=== PATIENT | male | born 1990 | race Caucasian/White ===

== ENCOUNTER 2019-03-11 08:20 | Emergency (ER) | payer SELFPAY ==
[2019-03-11 08:47] VITALS: BP 125/73; PULSE 67; RESP 18; TEMP 36.6; O2SAT 99; BMI 23.6
[2019-03-11 09:06] VITALS: BP 119/78; PULSE 66; RESP 16; TEMP 36.7; O2SAT 99
--- NOTE | 2019-03-11 09:08 | W.ED.GENADLT ---
HPI - General Adult General: Chief complaint: General Medical Stated complaint: Sore throat Time Seen by Provider: 03/11/19 09:02 Source: patient Mode of arrival: ambulatory Limitations: no limitations History of Present Illness: HPI narrative: Patient comes in today for complaints of sore throat. Patient reports sore throat started last night with some nausea. Patient appears mildly unwell. Patient appears in no pain. Review of Systems General: Reports: 10 or more systems reviewed and unremarkable except in HPI and below ENMT: Reports: throat pain PFSH ED PFSH: Statuses (acute, chronic, etc) shown below reflect problem list status as previously entered and may not be historically accurate Social History Smoking and tobacco status: current every day smoker Physical Exam Const: COMMON NORMALS: no apparent distress and oriented x3 GENERAL APPEARANCE: cooperative HENMT: COMMON NORMALS: normocephalic, external ears normal, EAC's normal, TM's normal bilaterally and external nose normal HEAD & SCALP: normal to inspection and normocephalic FACE & SINUS: normal facial exam NOSE: external nose normal GENERAL EAR: hearing not grossly impaired EXTERNAL EAR: Yes external ears normal EXTERNAL AUDITORY CANAL: EAC's normal TYMPANIC MEMBRANE: TM's normal bilaterally MOUTH: oral and palatal mucosa normal THROAT: posterior oropharynx abnormal cobblestoning and erythema Eye: COMMON NORMALS: PERRL and EOMs intact bilaterally PUPIL: Yes PERRL Neck/C-Spine: COMMON NORMALS: full ROM and no lymphadenopathy Lymph: LYMPHATIC: no lymphedema noted Chest: COMMONS NORMALS: inspection of chest normal and palpation of chest normal Resp: COMMON NORMALS: normal respiratory effort and clear to auscultation bilaterally AUSCULTATION: clear to auscultation bilaterally Cardio: COMMON NORMALS: regular rate and regular rhythm RATE: regular rate RHYTHM: regular rhythm GI: COMMON NORMALS: normal to inspection, nondistended, normoactive bowel sounds and non-tender : COMMON NORMALS: Yes no CVA tenderness BLADDER/KIDNEY EXAM: Yes no CVA tenderness Back/Pelvis: COMMON NORMALS: no CVA tenderness and thoracic and lumbar spine normal to inspection Extremity: COMMON NORMALS: normal to inspection GENERAL: No edema Neuro: COMMON NORMALS: oriented x3, moves all extremities and no focal motor deficits Psych: COMMON NORMALS: mental status grossly normal and cooperative Skin: COMMON NORMALS: no rashes or lesions noted GENERAL SKIN EXAM: no rashes or lesions noted Course Vital Signs: Vital signs: Vital Signs Temperature 98.1 F 03/11/19 10:16 Pulse Rate 60 03/11/19 10:16 Respiratory Rate 16 03/11/19 10:16 Blood Pressure 117/74 03/11/19 10:16 Pulse Oximetry 97 03/11/19 10:16 MDM - General Adult Differential Diagnosis: Differential Diagnosis: Patient comes in today for complaints of sore throat and nausea since last night. Patient appears mildly unwell. Exam notes pharyngeal erythema. Abdomen soft nontender. Skin is warm and dry color is pink. Differential diagnosis includes viral syndrome, influenza, strep pharyngitis. Strep and flu test were negative. Reviewed exam with patient recommending treatment with dexamethasone for pain and discomfort. We will continue with Tylenol and ibuprofen for further treatment. Patient reports understanding agreed to plan. Lab Data: Labs: Lab Results 03/11/19 03/11/19 Range/Units 08:56 08:56 Influenza Type A A g Negative (Negative) POC Influenza B Ag Negative (Negative) Group A Strep Rapi d Negative (Negative) Discharge Plan Discharge Patient Disposition: Home, Self-Care Clinical Impression: Pharyngitis Qualifiers: Pharyngitis/tonsillitis etiology: other specified organisms Qualified Code(s): J02.8 - Acute pharyngitis due to other specified organisms Condition: Stable Prescriptions: No Action Abilify 15 mg Tablet 15 mg PO DAILY RF: 0 Remeron 15 mg Tablet 15 mg PO DAILY RF: 0 Discharge Orders: Discharge Order (Routine); Ordered 03/11/19 Ordered By: Roland Davis Referrals: [facility] [Other] Discharge Diet: Usual diet Discharge Activity: Limit activity as instructed Patient Instructions: Pharyngitis (ED) Activity Restrictions/Additional Instructions: Drink plenty of fluids Acetaminophen and Ibuprofen for pain and fever Follow-up with primary care in one week for persistent symptoms Return to ER for increased difficulty breathing or new concerns Stand Alone Forms: Work/School Release Discharge Date/Time: 03/11/19 10:17 Coding Level of Care Code 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
[2019-03-11 09:27] LABS: Rapid Strep A Test Negative (Negative)
[2019-03-11 09:28] LABS: Influenza A by IFA Negative (Negative); Influenza B by IFA Negative (Negative)
[2019-03-11] MEDS: dexamethasone 10 mg/mL INJ IM (10:00)
[2019-03-11 10:16] VITALS: BP 117/74; PULSE 60; RESP 16; TEMP 36.7; O2SAT 97
== END 2019-03-11 10:17 | disposition home or self-care (01) ==
PROVIDERS: Emergency Provider Nurse Practitioner Family
DX: J02.8 Acute pharyngitis due to other specified organisms (principal); F17.210 Nicotine dependence, cigarettes, uncomplicated
CPT/HCPCS: 87081; 87804; 87880; 96372; 99282; J1100

== ENCOUNTER 2019-04-08 16:24 | Emergency (ER) | payer SELFPAY ==
[2019-04-08 16:39] VITALS: BP 118/90; PULSE 60; RESP 18; TEMP 36.8; O2SAT 98; BMI 23.6
[2019-04-08 17:59] LABS: Influenza A by IFA Negative (Negative); Influenza B by IFA Negative (Negative)
[2019-04-08 18:57] VITALS: BP 131/80; PULSE 65; RESP 16; TEMP 36.7; O2SAT 98
--- NOTE | 2019-04-08 19:03 | W.ED.FEVER ---
HPI - Fever General: Chief Complaint: Fever Stated Complaint: Fever Time Seen by Provider: 04/08/19 19:02 History of Present Illness: HPI Narrative: Patient is a 28-year-old male who comes to the ED with fever. Patient states fever started last night and he also had a little bit of a cough. He describes the cough is dry and nonproductive. Denies any recent sick contacts. Patient took ibuprofen at 2 PM today and states that he is feeling better Now. Denies any chest pain, shortness of breath, abdominal pain, nausea, vomiting, dysuria, hematuria, diarrhea, constipation, blood in stool. Review of Systems General: Reports: 10 or more systems reviewed and unremarkable except in HPI and below PFSH ED PFSH: Statuses (acute, chronic, etc) shown below reflect problem list status as previously entered and may not be historically accurate Medical History Encounter for follow-up care involving plastic surgery of upper extremity (Unknown) Left arm Surgical History History of carpal tunnel surgery Left hand. Social History Smoking and tobacco status: current every day smoker Physical Exam Narrative: EXAM NARRATIVE: Patient is a 28-year-old male sitting comfortably in the chair when I entered the exam room. He was showing no signs of acute pain or distress. Also showing no signs of any respiratory distress. Const: COMMON NORMALS: oriented x3 HENMT: COMMON NORMALS: normocephalic and TM's normal bilaterally HEAD & SCALP: normocephalic TYMPANIC MEMBRANE: TM's normal bilaterally MOUTH: oral and palatal mucosa normal THROAT: posterior oropharynx normal and uvula midline Neck/C-Spine: COMMON NORMALS: supple GENERAL: Yes normal visual inspection Resp: COMMON NORMALS: normal respiratory effort, no retractions, no use of accessory muscles and clear to auscultation bilaterally AUSCULTATION: clear to auscultation bilaterally Cardio: COMMON NORMALS: regular rate, regular rhythm, S1 normal heart sound, S2 normal heart sound, no gallops, no clicks, no murmurs and peripheral pulses 2+ throughout RATE: regular rate RHYTHM: regular rhythm HEART SOUNDS: S1 normal and S2 normal PERIPHERAL PULSES: pulses 2+ throughout GI: COMMON NORMALS: normal to inspection, nondistended, normoactive bowel sounds, soft to palpation, non-tender and no masses PALPATION: Yes soft : COMMON NORMALS: Yes no CVA tenderness BLADDER/KIDNEY EXAM: Yes no CVA tenderness Back/Pelvis: COMMON NORMALS: no CVA tenderness Extremity: COMMON NORMALS: normal to inspection Neuro: COMMON NORMALS: oriented x3 and moves all extremities Skin: COMMON NORMALS: no rashes or lesions noted GENERAL SKIN EXAM: no rashes or lesions noted Course Vital Signs: Vital signs: Vital Signs Temperature 98.1 F 04/08/19 19:24 Pulse Rate 65 04/08/19 19:24 Respiratory Rate 16 04/08/19 19:24 Blood Pressure 131/80 04/08/19 19:24 Pulse Oximetry 98 04/08/19 19:24 MDM - Fever Lab Data: Attestation: I reviewed the patient's lab results. Labs: Lab Results 04/08/19 Range/Units 16:44 Influenza Type A A g Negative (Negative) POC Influenza B Ag Negative (Negative) Discharge Plan Discharge Patient Disposition: Home, Self-Care Clinical Impression: Upper respiratory infection with cough and congestion Condition: Stable Prescriptions: No Action Abilify 15 mg Tablet 15 mg PO DAILY RF: 0 Remeron 15 mg Tablet 15 mg PO DAILY RF: 0 Discharge Orders: Discharge Order (Routine); Ordered 04/08/19 Ordered By: Rolan Souza Referrals: [facility] [Other] Discharge Diet: Regular Discharge Activity: Resume usual activity Patient Instructions: Upper Respiratory Infection - Adult Activity Restrictions/Additional Instructions: Follow-up with PCP in 7 days for reevaluation. Drink plenty of fluids and take Tylenol or ibuprofen as needed for fevers. Take [id number] nasal decongestants to help with nasal congestion. Return to the ED if symptoms continue to worsen after 3-5 days or have some shortness of breath or productive cough. 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
[2019-04-08 19:24] VITALS: BP 131/80; PULSE 65; RESP 16; TEMP 36.7; O2SAT 98
== END 2019-04-08 19:30 | disposition home or self-care (01) ==
PROVIDERS: Emergency Medicine; Emergency Provider Physician Assistant
DX: J06.9 Acute upper respiratory infection, unspecified (principal); F17.210 Nicotine dependence, cigarettes, uncomplicated
CPT/HCPCS: 87804; 99281; 99282

== ENCOUNTER 2021-11-20 17:48 | Emergency (ER) | payer BC, MEDICAID, SELFPAY ==
--- NOTE | 2021-11-20 17:51 | USR_ITS ---
PROCEDURE INFORMATION: Exam: US Scrotum Exam date and time: 11/20/2021 6:09 PM Age: 31 years old Clinical indication: Scrotum pain; Patient HX: Sudden on set of pain; Additional info: Right testicle pain TECHNIQUE: Imaging protocol: Real-time ultrasound of the scrotum and contents with color Doppler and image documentation. COMPARISON: US Renal Kidney Structu* [id number] 04/28/2018 10:50 AM FINDINGS: Right testicle: Normal. No mass. No torsion. Normal vascular flow. Left testicle: Normal. No mass. No torsion. Normal vascular flow. Epididymides: Normal. Scrotum: Normal. US/US scrotum [id number] IMPRESSION: No acute findings.
[2021-11-20 17:53] VITALS: BP 134/81; PULSE 96; RESP 16; TEMP 36.5; O2SAT 98; BMI 23.6
[2021-11-20 18:43] VITALS: BP 158/95; PULSE 90; RESP 18; O2SAT 95
[2021-11-20] MEDS: HYDROcodone-acetaminophen 5-325 mg Tablet 1 TAB PO (18:45)
--- NOTE | 2021-11-20 18:47 | W.ED.MALEGU ---
HPI - Male Genitourinary General: Chief complaint: Urogenital-Male Stated complaint: Right testicle pain Time Seen by Provider: 11/20/21 18:30 Source: patient Mode of arrival: ambulatory Limitations: no limitations History of Present Illness: 31-year-old male states has been having right-sided testicle pain throughout the day states it is gradually worsened pain is now a 7 out of 10 denies any dysuria denies any flank pain pain is worse with movement improved with rest. Associated symptoms: Deny dysuria, nausea or vomiting Review of Systems Const: Denies: fever(s), chills, body aches or change in appetite Eyes: Denies: blurry vision or eye discomfort ENMT: Denies: throat pain or dental pain Card: Denies: chest pain Resp: Denies: dyspnea GI: Denies: abdominal pain, nausea, vomiting or diarrhea : Reports: testicular pain; Denies: dysuria Musc: Denies: neck pain or back pain Skin/Breast: Denies: rash Neuro: Denies: headache(s) Psych: Denies: depression Mandeep/Lymph: Denies: easy bruising All/Imm: Denies: urticaria PFSH ED PFSH: Medical History (Updated 11/20/21 @ 19:29 by Kavin Beckman MD) Encounter for follow-up care involving plastic surgery of upper extremity (Unknown) Left arm Surgical History History of carpal tunnel surgery Left hand. Social History Smoking and tobacco status: current every day smoker Physical Exam Const: COMMON NORMALS: no acute distress, patient oriented x3 and healthy appearing HENMT: COMMON NORMALS: normocephalic and atraumatic HEAD & SCALP: normocephalic and atraumatic Eye: COMMON NORMALS: conjunctivae normal CONJUNCTIVA: Yes conjunctivae normal Neck/C-Spine: COMMON NORMALS: full ROM and supple Chest: COMMONS NORMALS: normal inspection of the chest Resp: COMMON NORMALS: normal respiratory effort Cardio: COMMON NORMALS: regular rate, regular rhythm and No murmurs present (Cardio) RATE: regular rate RHYTHM: regular rhythm GI: COMMON NORMALS: Normal to inspection, nondistended, normoactive bowel sounds present, Soft to palpation, non-tender and no masses PALPATION: Yes Soft to palpation : COMMON NORMALS: Yes no CVA tenderness BLADDER/KIDNEY EXAM: Yes no CVA tenderness OTHER: Tenderness noted to right testicle no signs of torsion Back/Pelvis: COMMON NORMALS: no CVA tenderness Extremity: COMMON NORMALS: normal to inspection and full ROM Neuro: COMMON NORMALS: patient oriented x3, moves all extremities and no focal motor deficits Psych: COMMON NORMALS: mental status grossly normal, Normal thought process present and cooperative THOUGHT PROCESS: Normal thought process present Skin: COMMON NORMALS: no rashes or lesions noted and no wounds GENERAL SKIN EXAM: no rashes or lesions noted Course Vital Signs: Vital signs: Vital Signs Temperature 97.7 F 11/20/21 17:53 Pulse Rate 90 11/20/21 18:43 Respiratory Rate 18 11/20/21 18:43 Blood Pressure 158/95 11/20/21 18:43 Pulse Oximetry 95 11/20/21 18:43 Oxygen Delivery Me thod 11/20/21 18:43 MDM - Male Medical Decision Making Patient presents with right testicle pain he had some mild tenderness on exam no abnormalities noted ultrasound and CT scan are normal urinalysis is normal he stable for discharge he is to follow-up with PCP and return if worsening he understands agrees to plan. Lab Data Radiology Impressions Scrotum Ultrasound 11/20/21 17:51 IMPRESSION: No acute findings. Abdomen/Pelvis CT 11/20/21 18:54 IMPRESSION: A few punctate nonobstructing stones noted in both kidneys, right greater than left. No obstructing nephrolithiasis. Laboratory Results Urine Color Yellow (Yellow) 11/20/21 18:02 Urine Appearance Clear (CLEAR) 11/20/21 18:02 Urine pH 6 (5-7) 11/20/21 18:02 Ur Specific [place] 1.025 (1.005-1.030) 11/20/21 18:02 Urine Protein Neg (Negative) 11/20/21 18:02 Urine Glucose (UA) Norm (Normal) 11/20/21 18:02 Urine Ketones Negative (Negative) 11/20/21 18:02 Urine Blood Neg (Negative) 11/20/21 18:02 Urine Nitrate Negative (Negative) 11/20/21 18:02 Urine Bilirubin Neg (Negative) 11/20/21 18:02 Urine Urobilinogen Neg mg/dL (Negative) 11/20/21 18:02 Ur Leukocyte Esterase Negative (Negative) 11/20/21 18:02 Discharge Plan Discharge Patient Disposition: Home Clinical Impression: Right testicular pain Condition: Stable Prescriptions: New hydrocodone-acetaminophen 5-325 mg tablet 1 tab PO Q6H PRN (Reason: pain) Qty: 14 0RF No Action Abilify 15 mg Tablet 15 mg PO DAILY Remeron 15 mg Tablet 15 mg PO DAILY Discharge Orders: Discharge ED (Routine); Ordered 11/20/21 Ordered By: Kavin Beckman Referrals: Kevin French MD [Primary Care Provider] - David Herrera MD [Physician] - 1-3 days Discharge Diet: Advance as tolerated Discharge Activity: Resume usual activity Patient Instructions: Testicle Pain (ED), Opioid Safety Coding Level of Care Code 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
[2021-11-20 18:51] LABS: Add Urine Microscopic? NO; Charge for UA Resulting for Rev
--- NOTE | 2021-11-20 18:54 | CTR_ITS ---
PROCEDURE INFORMATION: Exam: CT Abdomen And Pelvis Without Contrast Exam date and time: 11/20/2021 6:58 PM Age: 31 years old Clinical indication: Abdominal pain; Flank; Patient HX: Right testicle pain; Additional info: Right flank pain TECHNIQUE: Imaging protocol: Computed tomography of the abdomen and pelvis without contrast. Radiation optimization: All CT scans at this facility use at least one of these dose optimization techniques: automated exposure control; mA and/or kV adjustment per patient size (includes targeted exams where dose is matched to clinical indication); or iterative reconstruction. COMPARISON: US scrotum [id number] 11/20/2021 6:09 PM RADIATION DOSE METRICS: Total DLP (mGy-cm): 513.83 FINDINGS: Liver: Normal. No mass. Gallbladder and bile ducts: Contracted gallbladder. No calcified stones. No ductal dilation. Pancreas: Normal. No ductal dilation. Spleen: Normal. No splenomegaly. Adrenal glands: Normal. No mass. Kidneys and ureters: A few punctate nonobstructing stones are noted within both kidneys, right greater than left. No obstructing nephrolithiasis. No hydronephrosis. Stomach and bowel: Unremarkable. No obstruction. No mucosal thickening. Appendix: No evidence of appendicitis. Intraperitoneal space: Unremarkable. No free air. No significant fluid collection. Vasculature: Unremarkable. No abdominal aortic aneurysm. Lymph nodes: Unremarkable. No enlarged lymph nodes. Urinary bladder: Unremarkable as visualized. Reproductive: Unremarkable as visualized. Bones/joints: No acute fracture. Soft tissues: Unremarkable. CT/CT kidney stone [id number] IMPRESSION: A few punctate nonobstructing stones noted in both kidneys, right greater than left. No obstructing nephrolithiasis.
[2021-11-20 18:56] LABS: Bilirubin Urine Neg (Negative); Blood Urine Neg (Negative); Glucose Urine UA Norm (Normal); Ketones Urine Negative (Negative); Leukocyte Esterase Urine Negative (Negative); Nitrate Urine Negative (Negative); Protein Urine Neg (Negative); Specific Gravity, Urine 1.025 (1.005-1.030); Urine Appearance Clear (CLEAR); Urine Color Yellow (Yellow); Urobilinogen Urine Neg (Negative); pH Urine 6 (5-7)
--- NOTE | 2021-11-20 19:00 | PC.NURSE ---
report received from off going nurse, assumed care of patient at this time.
[2021-11-20 19:43] VITALS: PULSE 83; RESP 17; O2SAT 98
== END 2021-11-20 19:44 | disposition home or self-care (01) ==
PROVIDERS: Physician Assistant; Emergency Provider Emergency Medicine; PCP General Practice
DX: N50.811 Right testicular pain (principal); F17.200 Nicotine dependence, unspecified, uncomplicated
CPT/HCPCS: 74176; 76870; 81003; 99285

== ENCOUNTER 2023-06-25 11:08 | Emergency (ER) | payer BC, MEDICAID, SELFPAY ==
[2023-06-25 11:11] VITALS: BP 127/83; PULSE 80; RESP 18; O2SAT 98
--- NOTE | 2023-06-25 11:17 | CTR_ITS ---
PROCEDURE INFORMATION: Exam: CT Abdomen And Pelvis With Contrast Exam date and time: 06/25/2023 12:03 PM Age: 32 years old Clinical indication: Abdominal pain; Generalized; Additional info: Abd pain TECHNIQUE: Imaging protocol: Computed tomography of the abdomen and pelvis with contrast. Axial, coronal and sagittal reformatted images were created and reviewed. Radiation optimization: All CT scans at this facility use at least one of these dose optimization techniques: automated exposure control; mA and/or kV adjustment per patient size (includes targeted exams where dose is matched to clinical indication); or iterative reconstruction. Contrast material: OMNI 350; Contrast volume: 100 ml; Contrast route: INTRAVENOUS (IV); COMPARISON: CT kidney stone [id number] 11/20/2021 6:58 PM RADIATION DOSE METRICS: Total DLP (mGy-cm): 394.43 FINDINGS: Lungs: Minimal dependent atelectatic change at the lung bases. Liver: Unremarkable. Gallbladder and bile ducts: No radiodense gallstones. No biliary ductal dilatation. Pancreas: Unremarkable. Spleen: Unremarkable. Adrenal glands: Normal. No mass. Kidneys and ureters: Nonobstructing bilateral renal calculi. No hydronephrosis. Stomach and bowel: No bowel wall thickening. No obstruction. No pneumatosis. Appendix: Normal. Intraperitoneal space: No free fluid. No organized fluid collection. No free air. Vasculature: Unremarkable. No aneurysm. Lymph nodes: No pathologically enlarged lymph nodes. Urinary bladder: Unremarkable as visualized. Reproductive: Unremarkable. Bones/joints: No acute osseous abnormality. Mild degenerative changes. Soft tissues: Unremarkable. CT/CT abdomen pelvis w con* [id number]: 1[address] No CT evidence of acute intra-abdominal or pelvic pathology. 2. Additional findings, as above.
[2023-06-25 11:19] VITALS: TEMP 36.6
--- NOTE | 2023-06-25 11:30 | ED_ITS ---
HPI - Abdominal Pain 2 General: Chief Complaint: Abdominal Pain Stated Complaint: abd pain Time Seen by Provider: 06/25/23 11:11 Source: patient Mode of arrival: ambulatory Limitations: no limitations History of Present Illness: 32-year-old male states been having lowe r abdominal pain for the last 3 weeks. States it is a cramping pain feels like there is a rock in his stomach. He rates the pain a 7 out of 10 he had no vomiting or diarrhea denies any fevers denies any dysuria. Associated Symptoms: Denies chills, diarrhea, dysuria, fever(s), nausea and vomiting Review of Systems 2 Const: Denies: fever(s), chills, body aches or change in appetite ENMT: Denies: throat pain or dental pain Card: Denies: chest pain Resp: Denies: dyspnea GI: Reports: abdominal pain; Denies: nausea, vomiting or diarrhea : Denies: dysuria Musc: Denies: neck pain or back pain Skin/Breast: Denies: rash Neuro: Denies: headache(s) PFSH ED 2 PFSH: Medical History (Updated 06/25/23 @ 12:55 by Kavin Beckman MD) Encounter for follow-up care involving plastic surgery of upper extremity (Unknown) Left arm Surgical History History of carpal tunnel surgery Left hand. Social History Smoking and tobacco/nicotine status: current every day tobacco/nicotine user Physical Exam 2 Const: COMMON NORMALS: no acute distress, patient oriented x3 and healthy appearing HENMT: COMMON NORMALS: normocephalic and atraumatic HEAD & SCALP: n ormocephalic and atraumatic Neck/C-Spine: COMMON NORMALS: full ROM and supple Chest: COMMONS NORMALS: normal inspection of the chest and normal palpation of entire chest wall Resp: COMMON NORMALS: normal respiratory effort, No retractions, No use of accessory muscles and clear to auscultation bilaterally AUSCULTATION: clear to auscultation bilaterally Cardio: COMMON NORMALS: regular rate, regular rhythm and No murmurs present (Cardio) RATE: regular rate RHYTHM: regular rhythm GI: COMMON NORMALS: Normal to inspection, nondistended, normoactive bowel sounds present, Soft to palpation and no masses PALPATION: Yes Soft to palpation OTHER: Slight lower abdominal tenderness Extremity: COMMON NORMALS: normal to inspection and full ROM Neuro: COMMON NORMALS: patient oriented x3, moves all extremities and no focal motor deficits Psych: COMMON NORMALS: mental status grossly normal, Normal thought process present and cooperative THOUGHT PROCESS: Normal thought process present Skin: COMMON NORMALS: no rashes or lesions noted and no wounds GENERAL SKIN EXAM: no rashes or lesions noted Course 2 Vital Signs: Vital signs: Vital Signs Temperature 97.8 F 06/25/23 11:19 Pulse Rate 80 06/25/23 11:11 Respiratory Rate 18 06/25/23 11:11 Blood Pressure 127/83 06/25/23 11:11 Pulse Oximetry 98 06/25/23 11:11 Oxygen Delivery Me thod Room Air 06/25/23 11:11 MDM - Abdominal Pain Medical Decision Making Patient presents here with abdominal pain exam here is benign CT scan blood works normal he is stable for discharge we will place him on Bentyl he is return if worsening. Medical Records I reviewed the patient's medical records. Lab Data I reviewed the patient's lab results. 06/25/23 11:31 06/25/23 11:31 Labs/Radiology: Radiology Impressions Abdomen/Pelvis CT 06/25/23 11:[address]: [address] evidence of acute intra-abdominal or pelvic pathology. 2. Additional findings, as above. Laboratory Results WBC 6.90 10^3/uL (3.29-11.43) 06/25/23 11:31 RBC 5.10 10^6/uL (3.85-5.65) 06/25/23 11:31 Hgb 16.70 g/dL (11.27-16.99) 06/25/23 11:31 Hct 48.7 % (37-53) 06/25/23 11:31 MCV 95.5 fl (82-101) 06/25/23 11:31 MCH 32.7 pg (27-33) 06/25/23 11:31 MCHC 34.3 g/dL (30-55) 06/25/23 11:31 RDW 13.2 % (12.1-15.1) 06/25/23 11:31 Plt Count 233 10^3/cmm (157-399) 06/25/23 11:31 MPV 9.9 fL (7.4-10.4) 06/25/23 11:31 Neut % (Auto) 39.5 % 06/25/23 11:31 Lymph % (Auto) 47.8 % 06/25/23 11:31 [place] % (Auto) 5.9 % 06/25/23 11:31 Eos % (Auto) 5.8 % 06/25/23 11:31 Baso % (Auto) 0.9 % 06/25/23 11:31 Neut # (Auto) 2.72 10^3/uL (1.8-7.7) 06/25/23 11:31 Lymph # (Auto) 3.3 10^3/uL (0.8-4.8) 06/25/23 11:31 [place] # (Auto) 0.4 10^3/uL (0.2-0.9) 06/25/23 11:31 Eos # (Auto) 0.4 10^3/uL (0.0-0.8) 06/25/23 11:31 Baso # (Auto) 0.1 10^3/uL (0.0-0.1) 06/25/23 11:31 Nucleated RBC % (auto) 0 % 06/25/23 11: Nucleated RBCs # 0.0 /100WBC 06/25/23 11:31 Sodium 138 mmol/L (136-145) 06/25/23 11:31 Potassium 3.7 mmol/L (3.5-5.1) 06/25/23 11:31 Chloride 102 mmol/L (98-107) 06/25/23 11:31 Carbon Dioxide 21 mmol/L (22-29) L 06/25/23 11:31 Anion Gap 18.7 (5-19) 06/25/23 11:31 BUN 6 mg/dL (6-20) 06/25/23 11:31 Creatinine 0.7 mg/dL (0.7-1.2) 06/25/23 11:31 GFR Calculation 129.1 mL/min (90-130) 06/25/23 11:31 Glucose 86 mg/dL (65-115) 06/25/23 11:31 Calculated Osmolality 283 mOsm/kg (285-295) L 06/25/23 11:31 Calcium 8.9 mg/dL (8.5-10.5) 06/25/23 11:31 Total Bilirubin 0.3 mg/dL (0.15-1.2) 06/25/23 11:31 AST 43 U/L (0-40) H 06/25/23 11:31 ALT 27 U/L (0-41) 06/25/23 11:31 Alkaline Phosphatase 115 U/L (40-130) 06/25/23 11:31 Total Protein 7.5 g/dL (6.6-8.7) 06/25/23 11:31 Albumin 4.2 g/dL (3.5-5.2) 06/25/23 11:31 Globulin 3.3 g/dL (1.3-4.6) 06/25/23 11:31 Lipase 35 U/L (13-60) 06/25/23 11:31 Urine Color Yellow (Yellow) 06/25/23 11:12 Urine Appearance Clear (CLEAR) 06/25/23 11:12 Urine pH 6 (5-7) 06/25/23 11:12 Ur Specific [place] 1.010 (1.005-1.030) 06/25/23 11:12 Urine Protein Neg (Negative) 06/25/23 11:12 Urine Glucose (UA) Norm (Normal) 06/25/23 11:12 Urine Ketones Negative (Negative) 06/25/23 11:12 Urine Blood Neg (Negative) 06/25/23 11:12 Urine Nitrate Negative (Negative) 06/25/23 11:12 Urine Bilirubin Neg (Negative) 06/25/23 11:12 Urine Urobilinogen Norm mg/dL (Negative) 06/25/23 11:12 Ur Leukocyte Esterase Negative (Negative) 06/25/23 11:12 No radiology studies performed this visit Discharge Plan Discharge Patient Disposition: Home Clinical Impression: Abdominal pain Condition: Stable Prescriptions: New dicyclomine 20 mg tablet 20 mg PO TID PRN (Reason: abdominal pain) Qty: 20 0RF No Action ibuprofen 800 mg Tablet 800 mg PO Q6H PRN (Reason: Pain) Discharge Orders: Discharge ED (Routine); Ordered 06/25/23 Ordered By: Kavin Beckman Referrals: Kevin French MD [Primary Care Provider] - 1-3 days Discharge Diet: Advance as tolerated Discharge Activity: Resume usual activity Patient Instructions: Abdominal Pain (ED) Coding Level of Care Code ED Milk Route Deliverer for Momo Moe
[2023-06-25] MEDS: ondansetron 2 mg/ML SDV 2 mL 4 MG IVP (11:32)
[2023-06-25] MEDS: morphine 4 mg/mL SDV 1 mL IVP (11:32)
[2023-06-25 11:34] LABS: Add Urine Microscopic? NO; Charge for UA Resulting for Rev
[2023-06-25 11:37] LABS: Basophils # 0.1 10^3/uL (0.0-0.1); Basophils % 0.9 %; Eosinophils # 0.4 10^3/uL (0.0-0.8); Eosinophils % 5.8 %; Hematocrit 48.7 % (37-53); Lymphocytes # 3.3 10^3/uL (0.8-4.8); Lymphocytes % 47.8 %; Mean Corpuscular HGB Conc 34.3 g/dL (30-55); Mean Corpuscular Hemoglobin 32.7 pg (27-33); Mean Corpuscular Volume 95.5 fl (82-101); Mean Platelet Volume 9.9 fL (7.4-10.4); Monocytes # 0.4 10^3/uL (0.2-0.9); Monocytes % 5.9 %; Neutrophils # 2.72 10^3/uL (1.8-7.7); Neutrophils % 39.5 %; Nucleated Red Blood Cells % 0 %; Platelet Count 233 10^3/cmm (157-399); Red Cell Distribution Width 13.2 % (12.1-15.1)
[2023-06-25 11:46] LABS: Urine Appearance Clear (CLEAR); Urine Color Yellow (Yellow); pH Urine 6 (5-7)
[2023-06-25 11:47] LABS: Bilirubin Urine Neg (Negative); Blood Urine Neg (Negative); Glucose Urine UA Norm (Normal); Ketones Urine Negative (Negative); Leukocyte Esterase Urine Negative (Negative); Nitrate Urine Negative (Negative); Protein Urine Neg (Negative); Urobilinogen Urine Norm (Negative)
[2023-06-25 11:57] LABS: Alanine Aminotransferase 27 U/L (0-41); Albumin Level 4.2 g/dL (3.5-5.2); Alkaline Phosphatase 115 U/L (40-130); Anion Gap 18.7 (5-19); Aspartate Amino Transferase 43 U/L (0-40); Blood Urea Nitrogen 6 mg/dL (6-20); Calcium 8.9 mg/dL (8.5-10.5); Carbon Dioxide 21 mmol/L (22-29); Chloride 102 mmol/L (98-107); Creatinine Clr Calc Pharmacy 148.7449; Globulin 3.3 g/dL (1.3-4.6); Glomerular Filtration Rate 129.1 mL/min (90-130); Glucose 86 mg/dL (65-115); Lipase 35 U/L (13-60); Osmolality Calculated 283 mOsm/kg (285-295); Potassium 3.7 mmol/L (3.5-5.1); Sodium 138 mmol/L (136-145); Total Bilirubin 0.3 mg/dL (0.15-1.2); Total Protein 7.5 g/dL (6.6-8.7)
[2023-06-25] MEDS: iohexol 350 mg/mL 500 mL Btl (per mL) IV (12:04)
[2023-06-25 13:02] VITALS: PULSE 58; RESP 16; O2SAT 98
[2023-06-25 13:21] VITALS: PULSE 58; RESP 16; O2SAT 98
--- NOTE | 2023-06-26 14:59 | PC.NURSE ---
RX CALLED INTO [facility].
== END 2023-06-25 13:22 | disposition home or self-care (01) ==
PROVIDERS: Emergency Provider Emergency Medicine; PCP General Practice
DX: R10.30 Lower abdominal pain, unspecified (principal); Z72.0 Tobacco use
CPT/HCPCS: 36415; 74177; 80053; 81003; 83690; 85025; 96374; 96375; 99285; J2270; J2405; Q9967

== ENCOUNTER 2023-07-10 00:11 | Inpatient (IN) | payer BC, SELFPAY ==
[2023-07-10] VITALS (9 sets, daily range): BP systolic 109–150; BP diastolic 66–96; PULSE 50–82; RESP 16–20; TEMP 36.5–36.8; O2SAT 95–97; BMI 23.6
--- NOTE | 2023-07-10 00:20 | ECG_ITS ---
[facility] Test Date: 2023-07-10 Pat Name: Jj Buchanan Department: Room: Gender: Male [employer]: : 1990 Requested By: Manpreet Gongora Order Number: [id number] Ferny MD: Neva Correa M.D. Measurements Intervals [place] Rate: 63 P: -38 CA: 159 QRS: 58 QRSD: 102 T: 49 QT: 385 QTc: 395 Interpretive Statements SINUS RHYTHM EARLY REPOLARIZATION [ST ELEVATION WITH NORMALLY INFLECTED T-WAVE] Compared to ECG 07/30/2018 18:46:26 ST (T wave) deviation no longer present Electronically Signed On 07-10-2023 17:27:36 CDT by Neva Correa M.D. [id number]
--- NOTE | 2023-07-10 00:20 | W.ED.PSYCHS ---
HPI - Psych General: Chief Complaint: Psychiatric Symptoms Stated Complaint: SI Time Seen by Provider: 07/10/23 00:19 History of Present Illness: 32-year-old male patient presenting with previous suicidal ideation. Evidently, he had a rope around his neck earlier in the evening. He presents with law enforcement. He says that he drinks and smokes marijuana every day, and has had no more to drink than usual. He has been feeling down. He has no hope. Currently his symptoms are somewhat improved and that he is not actively suicidal, but does acknowledge that he had a rope around his neck earlier. This would not be his first suicidal attempt. Review of Systems Const: Denies: fever(s), chills or body aches Eyes: Denies: change in vision Card: Denies: chest pain or palpitations Resp: Denies: dyspnea, productive cough, non-productive cough or wheezing GI: Denies: abdominal pain, nausea, vomiting, diarrhea or hematochezia Skin/Breast: Denies: rash Neuro: Denies: headache(s), weakness in extremities, dizziness or confusion [facility] PFSH: Medical History (Updated 07/03/23 @ 00:01 by DOMENICA Finch) Encounter for follow-up care involving plastic surgery of upper extremity (Unknown) Left arm Surgical History History of carpal tunnel surgery Left hand. Social History Smoking and tobacco/nicotine status: current every day tobacco/nicotine user Physical Exam Const: COMMON NORMALS: no acute distress GENERAL APPEARANCE: cooperative; not ill appearing and not frail appearing HENMT: COMMON NORMALS: normocephalic, atraumatic and Normal external nose present HEAD & SCALP: normocephalic and atraumatic FACE & SINUS: normal facial exam and face symmetric NOSE: Normal external nose present Eye: COMMON NORMALS: Equal, round and reactive pupils present and EOMs intact bilaterally PUPIL: Yes Equal, round and reactive pupils present Neck/C-Spine: GENERAL: Yes trachea midline Chest: CHEST: Yes Symmetrical chest wall rise Resp: COMMON NORMALS: normal respiratory effort, No retractions, No use of accessory muscles and clear to auscultation bilaterally AUSCULTATION: clear to auscultation bilaterally Cardio: COMMON NORMALS: regular rate and regular rhythm RATE: regular rate RHYTHM: regular rhythm GI: COMMON NORMALS: Normal to inspection, nondistended, normoactive bowel sounds present Extremity: COMMON NORMALS: no pedal edema Neuro: JUDITH COMA SCALE: document GCS findings Echo coma scale eye opening: Spontaneous Judith coma scale verbal response: Orientated Judith coma scale motor response: Obey commands Echo coma scale total score: 15 SENSORY EXAM: Yes extremities (intact) Psych: COMMON NORMALS: speech normal SPEECH: Yes normal speech Skin: NARRATIVE SKIN EXAM: Superficial abrasion right anterior forearm. Course Vital Signs: Vital signs: Vital Signs Temperature 97.7 F 07/10/23 00:11 Pulse Rate 72 07/10/23 00:11 Respiratory Rate 17 07/10/23 01:44 Blood Pressure 137/96 07/10/23 00:11 Pulse Oximetry 95 07/10/23 00:11 Oxygen Delivery Me thod Room Air 07/10/23 00:11 MDM - Psych Medical Decision Making Vitals are good. Patient's alcohol is 300. He has had no more to drink today than usual. He is ambulatory, making sense, and not belligerent. I do not believe this is far off of his baseline. Other laboratory is not remarkable. He is willing to be admitted. He will go to the NPU. Medically he is quite stable. Lab Data 07/10/23 00:23 07/10/23 00:23 Laboratory Results WBC 9.71 10^3/uL (3.29-11.43) 07/10/23 00:23 RBC 5.33 10^6/uL (3.85-5.65) 07/10/23 00:23 Hgb 17.80 g/dL (11.27-16.99) H 07/10/23 00:23 Hct 51.1 % (37-53) 07/10/23 00:23 MCV 95.9 fl (82-101) 07/10/23 00:23 MCH 33.4 pg (27-33) H 07/10/23 00:23 MCHC 34.8 g/dL (30-55) 07/10/23 00:23 RDW 13.9 % (12.1-15.1) 07/10/23 00:23 Plt Count 272 10^3/cmm (157-399) 07/10/23 00:23 MPV 9.9 fL (7.4-10.4) 07/10/23 00:23 Neut % (Auto) 60.3 % 07/10/23 00:23 Lymph % (Auto) 29.6 % 07/10/23 00:23 [place] % (Auto) 5.0 % 07/10/23 00:23 Eos % (Auto) 3.9 % 07/10/23 00:23 Baso % (Auto) 0.9 % 07/10/23 00:23 Neut # (Auto) 5.85 10^3/uL (1.8-7.7) 07/10/23 00:23 Lymph # (Auto) 2.9 10^3/uL (0.8-4.8) 07/10/23 00:23 [place] # (Auto) 0.5 10^3/uL (0.2-0.9) 07/10/23 00:23 Eos # (Auto) 0.4 10^3/uL (0.0-0.8) 07/10/23 00:23 Baso # (Auto) 0.1 10^3/uL (0.0-0.1) 07/10/23 00:23 Nucleated RBC % (auto) 0 % 07/10/23 00: Nucleated RBCs # 0.0 /100WBC 07/10/23 00:23 Sodium 141 mmol/L (136-145) 07/10/23 00:23 Potassium 4.0 mmol/L (3.5-5.1) 07/10/23 00:23 Chloride 108 mmol/L (98-107) H 07/10/23 00:23 Carbon Dioxide 22 mmol/L (22-29) 07/10/23 00:23 Anion Gap 15.0 (5-19) 07/10/23 00:23 BUN 6 mg/dL (6-20) 07/10/23 00:23 Creatinine 0.8 mg/dL (0.7-1.2) 07/10/23 00:23 GFR Calculation 110.7 mL/min (90-130) 07/10/23 00:23 Glucose 109 mg/dL (65-115) 07/10/23 00:23 Calculated Osmolality 290 mOsm/kg (285-295) 07/10/23 00:23 Calcium 8.9 mg/dL (8.5-10.5) 07/10/23 00:23 Total Bilirubin 0.3 mg/dL (0.15-1.2) 07/10/23 00:23 AST 53 U/L (0-40) H 07/10/23 00:23 ALT 44 U/L (0-41) H 07/10/23 00:23 Alkaline Phosphatase 151 U/L (40-130) H 07/10/23 00:23 Total Protein 8.0 g/dL (6.6-8.7) 07/10/23 00:23 Albumin 4.5 g/dL (3.5-5.2) 07/10/23 00: Globulin 3.5 g/dL (1.3-4.6) 07/10/23 00: TSH 1.70 uIU/mL (0.27-4.20) 07/10/23 00:23 Urine Color Yellow (Yellow) 07/10/23 00:20 Urine Appearance Clear (CLEAR) 07/10/23 00:20 Urine pH 6 (5-7) 07/10/23 00:20 Ur Specific [place] 1.010 (1.005-1.030) 07/10/23 00:20 Urine Protein Neg (Negative) 07/10/23 00:20 Urine Glucose (UA) Norm (Normal) 07/10/23 00:20 Urine Ketones Negative (Negative) 07/10/23 00:20 Urine Blood Neg (Negative) 07/10/23 00:20 Urine Nitrate Negative (Negative) 07/10/23 00:20 Urine Bilirubin Neg (Negative) 07/10/23 00:20 Urine Urobilinogen Neg mg/dL (Negative) 07/10/23 00:20 Ur Leukocyte Esterase Negative (Negative) 07/10/23 00:20 Salicylates < 0.3 mg/dL (3-10) L 07/10/23 00:23 Urine Opiates Screen Negative ng/mL (Negative) 07/10/23 00:20 Acetaminophen < 5.0 ug/mL (10-30) L 07/10/23 00:23 Ur Barbiturates Screen Negative ng/mL (Negative) 07/10/23 00:20 Ur Phencyclidine Scrn Negative ng/mL (Negative) 07/10/23 00:20 Ur Amphetamines Screen Negative ng/mL (Negative) 07/10/23 00:20 U Benzodiazepines Scrn Negative ng/mL (Negative) 07/10/23 00:20 Urine Cocaine Screen Negative ng/mL (Negative) 07/10/23 00:20 U Marijuana (THC) Screen Positive ng/mL (Negative) H 07/10/23 00:20 Ethyl Alcohol 302 mg/dL (0-10) H* 07/10/23 00:23 Adenovirus (PCR) Not detected (NOT DETECT) 07/10/23 00:39 C. pneumoniae DNA (PCR) Not detected (NOT DETECT) 07/10/23 00:39 Coronavirus 229E (PCR) Not detected (NOT DETECT) 07/10/23 00:39 Human Metapneumovir PCR Not detected (NOT DETECT) 07/10/23 00:39 Influenza A (H1) PCR Not detected (NOT DETECT) 07/10/23 00:39 Influ A (H1/09) PCR Not detected (NOT DETECT) 07/10/23 00:39 Influenza A (H3) PCR Not detected (NOT DETECT) 07/10/23 00:39 Influenza Type A (PCR) Not detected (NOT DETECT) 07/10/23 00:39 Influenza Type B (PCR) Not detected (NOT DETECT) 07/10/23 00:39 M. pneumoniae (PCR) Not detected (NOT DETECT) 07/10/23 00:39 Parainfluenza 1 (PCR) Not detected (NOT DETECT) 07/10/23 00:39 Parainfluenza 2 (PCR) Not detected (NOT DETECT) 07/10/23 00:39 Parainfluenza 3 (PCR) Not detected (NOT DETECT) 07/10/23 00:39 Parainfluenza 4 (PCR) Not detected (NOT DETECT) 07/10/23 00:39 RSV Type A (PCR) Not detected (NOT DETECT) 07/10/23 00:39 RSV Type B (PCR) Not detected (NOT DETECT) 07/10/23 00:39 Entero/Rhino (PCR) Not detected (NOT DETECT) 07/10/23 00:39 SARS-CoV-2 (PCR) Not detected (NOT DETECT) 07/10/23 00:39 No radiology studies performed this visit Discharge Plan Discharge Admit Provider: Carly,Evgeny Condition: Stable Prescriptions: No Action No Known Home Medications Coding Level of Care Code ED Superintendent Measurement for Momo Moe
[2023-07-10 00:31] LABS: Basophils # 0.1 10^3/uL (0.0-0.1); Basophils % 0.9 %; Eosinophils # 0.4 10^3/uL (0.0-0.8); Eosinophils % 3.9 %; Hematocrit 51.1 % (37-53); Lymphocytes # 2.9 10^3/uL (0.8-4.8); Lymphocytes % 29.6 %; Mean Corpuscular HGB Conc 34.8 g/dL (30-55); Mean Corpuscular Hemoglobin 33.4 pg (27-33); Mean Corpuscular Volume 95.9 fl (82-101); Mean Platelet Volume 9.9 fL (7.4-10.4); Monocytes # 0.5 10^3/uL (0.2-0.9); Neutrophils # 5.85 10^3/uL (1.8-7.7); Neutrophils % 60.3 %; Nucleated Red Blood Cells % 0 %; Platelet Count 272 10^3/cmm (157-399); Red Blood Count 5.33 10^6/uL (3.85-5.65); Red Cell Distribution Width 13.9 % (12.1-15.1); White Blood Count 9.71 10^3/uL (3.29-11.43)
[2023-07-10 00:43] LABS: Add Urine Microscopic? NO; Charge for UA Resulting for Rev
[2023-07-10 00:48] LABS: Bilirubin Urine Neg (Negative); Blood Urine Neg (Negative); Glucose Urine UA Norm (Normal); Ketones Urine Negative (Negative); Leukocyte Esterase Urine Negative (Negative); Nitrate Urine Negative (Negative); Protein Urine Neg (Negative); Urine Appearance Clear (CLEAR); Urine Color Yellow (Yellow); Urobilinogen Urine Neg (Negative); pH Urine 6 (5-7)
[2023-07-10 01:03] LABS: Alanine Aminotransferase 44 U/L (0-41); Albumin Level 4.5 g/dL (3.5-5.2); Alkaline Phosphatase 151 U/L (40-130); Aspartate Amino Transferase 53 U/L (0-40); Blood Urea Nitrogen 6 mg/dL (6-20); Calcium 8.9 mg/dL (8.5-10.5); Carbon Dioxide 22 mmol/L (22-29); Chloride 108 mmol/L (98-107); Creatinine Clr Calc Pharmacy 131.4878; Globulin 3.5 g/dL (1.3-4.6); Glomerular Filtration Rate 110.7 mL/min (90-130); Glucose 109 mg/dL (65-115); Osmolality Calculated 290 mOsm/kg (285-295); Sodium 141 mmol/L (136-145); Total Bilirubin 0.3 mg/dL (0.15-1.2)
[2023-07-10 01:06] LABS: Acetaminophen < 5.0 ug/mL (10-30); Salicylate < 0.3 mg/dL (3-10)
[2023-07-10 01:07] LABS: Alcohol Level 302 mg/dL (0-10)
[2023-07-10 01:14] LABS: Amphetamines Screen Urine Negative (Negative); Barbiturates Screen Urine Negative (Negative); Benzodiazepines Screen Urine Negative (Negative); Cocaine Screen Urine Negative (Negative); Opiate Screen Urine Negative (Negative); PCP Screen Urine Negative (Negative); THC Screen Urine Positive (Negative)
[2023-07-10 02:29] LABS: Adenovirus Not Detected (NOT DETECT); Chlamydia Pneumoniae Not Detected (NOT DETECT); Coronavirus 229E,HKU1,NL63,OC4 Not Detected (NOT DETECT); Human Metapneumovirus Not Detected (NOT DETECT); Human Rhinovirus/Enterovirus Not Detected (NOT DETECT); Influenza A Not Detected (NOT DETECT); Influenza A H1 Not Detected (NOT DETECT); Influenza A H1-2009 Not Detected (NOT DETECT); Influenza A H3 Not Detected (NOT DETECT); Influenza B Not Detected (NOT DETECT); Mycoplasma Pneumoniae Not Detected (NOT DETECT); Parainfluenza Virus Type 1 Not Detected (NOT DETECT); Parainfluenza Virus Type 2 Not Detected (NOT DETECT); Parainfluenza Virus Type 3 Not Detected (NOT DETECT); Parainfluenza Virus Type 4 Not Detected (NOT DETECT); Respiratory Syncytial Virus A Not Detected (NOT DETECT); Respiratory Syncytial Virus B Not Detected (NOT DETECT); SARS-COV-2 Not Detected (NOT DETECT)
--- NOTE | 2023-07-10 08:14 | PC.NURSE ---
IN BED RESTING AROUSES TO VOICE. MILD PERSPIRATION NOTED TO HEAD. REPORTS HE SLEPT GOOD LAST NIGHT. DENIES PAIN. DENIES SI/HI AND AVH AT THIS TIME. PT IS ON [facility] PROTOCOL FOR BAL OF 330, BP AND HR ARE WNL'S THIS AM. RATES ANXIETY AND DEPRESSION 06/06. REQUESTS SOMETHING FOR ANXIETY. RN TO GIVE VISTARIL 50 MG WITH AM MEDICATIONS WHEN PT COMES FOR AM MEDICATIONS. GOAL FOR THE DAY IS TO I GUESS GET THROUGH ALL THIS. AFFECT IS NOTED TO BE FLAT AND MOOD DEPRESSED. ALL QUESTIONS ANSWERED AND SUPPORT WAS VOICED.
[2023-07-10] MEDS: hyDROXYzine 25 mg Capsule 50 MG PO (10:49)
[2023-07-10] MEDS: multivitamin therapeutic Tablet 1 TAB PO (10:49)
[2023-07-10] MEDS: folic acid 1 mg Tablet PO (10:50)
[2023-07-10] MEDS: thiamine 100 mg Tablet PO (10:50)
[2023-07-10] MEDS: LORazepam 2 mg Tablet PO (10:50)
--- NOTE | 2023-07-10 14:02 | P.NPUHP_ITS ---
Providers/Chief Complaint 2 Admitting Physician: Evgeny Carroll MD Chief Complaint: SI HPI NPU History of Present Illness Jj Buchanan is a 32 year old male who presented to the emergency department with suicidal ideation as he had allegedly attempted to wrap a rope around his neck and hang himself. The patient reports that he does not remember the details of what it happened as he had reported that he had been drinking for several hours. The patient was admitted to the neuropsychiatric unit for further evaluation and treatment. He reports that he drinks on a daily basis for several years with a history of increased tolerance, and history of significant alcohol withdrawal. He also reports that he can drink more than 2 pints of alcohol daily. He reports having problems with anger and states that he had put his hand through a window after he had become upset yesterday. He reports having daily use of marijuana as well and reported that he had previously used methamphetamine although he denies its use and several years. He reports that he has had depression for several months and reports previous trials on antidepressants. He reports feeling hopeless and states that he has low energy and low motivation. He reports that he wakes up not feeling rested. He reports having continued stress at home with his and children and states that he becomes angry very easily. He has reported having problems with managing his temper for several years. He has reported having previous suicide attempts before. Patient's blood alcohol was 350 on admission. Inpatient psychiatric history: Patient reports multiple inpatient hospitalizations but was unable to recall when his last admission was. Outpatient psychiatric history: He had reported previous diagnosis of depression and states that he had previously been on mirtazapine. He had reportedly received treatment at [facility] on an outpatient basis. Drug and alcohol history: He had reported alcohol use beginning in his teenage years. He reports continuous daily drinking and reports a history of alcohol withdrawal symptoms including shakes. He has reported having been in [facility] in 2018 for alcohol abuse. He does report a past history of methamphetamine use and reports daily use of marijuana for several years. Medical history: None Surgical history: Carpal tunnel surgery left hand Allergies: Codeine history: None Legal history: He reports having history of having been in correction before in the past with his longest period of incarceration being 8 months. He is currently not on parole. He had reported having legal charges for the possession of methamphetamine in the past as well. Family psychiatric history: Alcoholism in biological parents along with history of depression in the mother. Current medications: None Social history: Patient reports daily nicotine use. He reports that he currently lives with his for 10 years. He reports that he has children from a previous relationship who live with their mother. He reports that he was raised by his grandmother. He reported having a traumatic childhood but did not wish to go into detail. He reports that he had struggled in school and dropped out of school in the ninth grade. He reports his parents were not together while he was growing up and he has 1 brother and 4 stepsisters. 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 He had moved to [place] recently after spending the last few years in [place], [place]. Meds NPU Home Medications Medication Instructions Recorded Confirmed Last Taken Type No Known Home Medications 07/10/23 07/10/23 Unknown History Allergies Allergy/AdvReac Type Severity Reaction Status Date / Time codeine Allergy ALGY-Swell Verified 07/10/23 00:27 Lip/Tongue/Throat PFSH NPU 2 PFSH: Medical History (Updated 07/10/23 @ 15:33 by Evgeny Carroll MD) Encounter for follow-up care involving plastic surgery of upper extremity (Unknown) Left arm Surgical History History of carpal tunnel surgery Left hand. Social History Smoking and tobacco/nicotine status: current every day tobacco/nicotine user Mental Status Exam 2 MSE Comments: Patient had a brien complexion and appeared to be sweating throughout the interview. His gait was not tested. He appeared in moderate to severe distress. He is a healthy male who appeared his stated age. There was significant evidence of psychomotor agitation as he appeared more irritable throughout the interview. He described his mood as not good. His affect was irritable and mood congruent. His thought process was linear logical but superficial. His thought content showed no evidence of active homicidal ideation and he denied any current suicidal ideation. He did not appear to be responding to internal stimuli. There was no clear evidence of delusional thinking. He was alert and oriented to person place and time. His recent memory appeared intact. Remote memory appeared adequate. There was mild to moderate tremor appreciated. His insight is impaired. His judgment was poor. His impulse control appeared limited. Vitals/I&O/Wt Last Vital Signs Temp 98.0 F 07/10/23 08:00 Pulse 60 07/10/23 12:00 Resp 16 07/10/23 12:00 BP 123/70 07/10/23 12:00 Pulse Ox 95 07/10/23 12:00 O2 Del Method Room Air 07/10/23 06:00 Weight last 48 hrs Weight 72.575 kg Data NPU 07/10/23 00:23 07/10/23 00:23 A&P Assessment and plan (1) Depression, unspecified: (2) Impulse control disorder, unspecified: (3) Alcohol dependence with alcohol-induced mood disorder: (4) Alcohol withdrawal: Plan 32-year-old male history of alcohol dependence and poor impulse control reporting depression and suicidal ideation. The patient appears to be in alcohol withdrawal at this time and would likely benefit from continued inpatient hospitalization. #1.? Engage patient in individual milieu and group therapy. #2?? Recommend sober living treatment at the highest level of care to which the patient is willing to commit #3??? CIWA for alcohol withdrawal #4?? TO-15 minute checks #5?? Will attempt to gather collateral information Involuntary Hold Information 2 96 Hour Hold: 96 Hour Involuntary Admission: No Attestations NPU 2 Medical Necessity Statement*: Inpatient hospitalization is medically necessary and deemed to ?be ?the clinically appropriate intervention ?at this time.? We will monitor/initiate medications and make changes as indicated.? The patient will be in the hospital for over 2 midnights.? The patient?s likely length of stay 5-7 days. Coding Level of Care Code Acute Code for g Fwd Diagnoses Depression, unspecified F32.A Impulse control disorder, unspecified F63.9 Alcohol dependence with alcohol-induced mood disorder F10.24 Alcohol withdrawal F10.939
[2023-07-10] MEDS: OLANZapine 5 mg ODT PO (16:25)
[2023-07-11] VITALS: BP 148/84; PULSE 90; RESP 18; TEMP 37.1; O2SAT 98
[2023-07-11 04:00] VITALS: BP 145/83; PULSE 81; RESP 18; TEMP 37; O2SAT 98
[2023-07-11 08:00] VITALS: BP 129/91; PULSE 75; RESP 20; TEMP 36.4; O2SAT 94
[2023-07-11] MEDS: folic acid 1 mg Tablet PO (08:12)
[2023-07-11] MEDS: multivitamin therapeutic Tablet 1 TAB PO (08:12)
[2023-07-11] MEDS: thiamine 100 mg Tablet PO (08:12)
[2023-07-11] MEDS: nicotine 4 mg lozenge MUCOUS MEM ×4 (08:13→17:48)
[2023-07-11 11:59] VITALS: BP 134/91; PULSE 72; RESP 16; TEMP 36.7; O2SAT 99
--- NOTE | 2023-07-11 12:44 | P.NPUPN_ITS ---
Subjective NPU 2 Subjective: 32-year-old male with alcohol dependence admitted with suicidal ideation and depression. The patient had continued to endorse depressed mood. He had reported feeling anxious but did not require any additional as needed Ativan for alcohol withdrawal yesterday. He had reported having a long history of depressed mood and frequent suicidal thoughts. The patient was compliant but did not attend groups. He had reported some interest in wanting further treatment for his alcohol issue as he had identified his alcohol consumption is being a problem to him. Mental Status Exam 2 MSE Comments: Patient had a brien complexion and appeared to be sweating throughout the interview. His gait was not tested. He appeared in mild distress. He is a healthy male who appeared his stated age. There was significant evidence of psychomotor retardation with reduced irritability appreciated. He described his mood as depressed. His affect was restricted in range and mood congruent. His thought process was linear logical but superficial. His thought content showed no evidence of active homicidal ideation and he denied any current suicidal ideation. He did not appear to be responding to internal stimuli. There was no clear evidence of delusional thinking. He was alert and oriented to person place and time. His recent memory appeared intact. Remote memory appeared adequate. No abnormal involuntary motor movement appreciated. His insight is impaired. His judgment was poor. His impulse control appeared limited. Vitals/I&O/Wt Last Vital Signs Temp 98.0 F 07/11/23 11:59 Pulse 72 07/11/23 11:59 Resp 16 07/11/23 11:59 BP 134/91 07/11/23 11:59 Pulse Ox 99 07/11/23 11:59 O2 Del Method Room Air 07/11/23 11:59 Weight last 48 hrs Weight 72.575 kg Data NPU 07/10/23 00:23 07/10/23 00:23 A&P Assessment and plan (1) Depression, unspecified: (2) Impulse control disorder, unspecified: (3) Alcohol dependence with alcohol-induced mood disorder: (4) Alcohol withdrawal: Plan 32-year-old male history of alcohol dependence and poor impulse control reporting depression and suicidal ideation. The patient appears to be in alcohol withdrawal at this time and would likely benefit from continued inpatient hospitalization. #1.? Engage patient in individual milieu and group therapy. #2?? Recommend sober living treatment at the highest level of care to which the patient is willing to commit #3??? CIWA for alcohol withdrawal #4?? TO-15 minute checks #5?? Patient not wishing for inpatient substance abuse treatment at this time. [facility] digital referral for substance abuse treatment. Add Lexapro 10mg daily. Involuntary Hold Information 2 96 Hour Hold: 96 Hour Involuntary Admission: No Attestations NPU 2 Medical Necessity Statement*: Inpatient hospitalization is medically necessary and deemed to ?be ?the clinically appropriate intervention ?at this time.? We will monitor/initiate medications and make changes as indicated.? The patient will be in the hospital for over 2 midnights.? The patient?s likely length of stay 3-4 days. Coding Level of Care Code Acute Code for g Fwd Diagnoses Depression, unspecified F32.A Impulse control disorder, unspecified F63.9 Alcohol dependence with alcohol-induced mood disorder F10.24 Alcohol withdrawal F10.930
[2023-07-11] MEDS: escitalopram 10 mg Tablet PO (13:07)
[2023-07-11] MEDS: LORazepam 2 mg Tablet PO ×2 (15:55→20:16)
[2023-07-11 15:56] VITALS: BP 171/106; PULSE 69; RESP 20; TEMP 36.4; O2SAT 99
[2023-07-11 19:53] VITALS: BP 151/74; PULSE 88; RESP 20; TEMP 36.4; O2SAT 97
[2023-07-12] VITALS: BP 120/71; PULSE 56; RESP 16; TEMP 36.7; O2SAT 97
[2023-07-12 04:00] VITALS: BP 101/72; PULSE 54; RESP 16; O2SAT 99
[2023-07-12 08:00] VITALS: BP 127/78; PULSE 66; RESP 16; TEMP 36.4; O2SAT 96
[2023-07-12] MEDS: escitalopram 10 mg Tablet PO (08:52)
[2023-07-12] MEDS: thiamine 100 mg Tablet PO (08:52)
[2023-07-12] MEDS: folic acid 1 mg Tablet PO (08:52)
[2023-07-12] MEDS: multivitamin therapeutic Tablet 1 TAB PO (08:52)
[2023-07-12 12:00] VITALS: BP 132/78; PULSE 76; RESP 16; TEMP 36.5; O2SAT 97
[2023-07-12] MEDS: LORazepam 2 mg Tablet PO (13:16)
[2023-07-12] MEDS: nicotine 4 mg lozenge MUCOUS MEM ×3 (13:16→17:41)
[2023-07-12 16:00] VITALS: BP 138/83; PULSE 74; RESP 16; TEMP 36.4; O2SAT 98
--- NOTE | 2023-07-12 16:34 | P.NPUPN_ITS ---
Subjective NPU 2 Subjective: 32-year-old male with alcohol dependence admitted with suicidal ideation and depression. The patient had continued to report feeling anxious. He had stated that he was motivated to stop the use of alcohol and was interested in considering the IM Vivitrol for alcohol dependence. He had continued to isolate himself on the milieu although he did appear to attend groups today. He reported motivation to return home and was willing to consider outpatient substance abuse treatment. He had reported depressed mood but reported that his thoughts of hurting himself or not present today. He had continued to require Ativan for alcohol related withdrawal. Mental Status Exam 2 MSE Comments: Patient had a brien complexion and appeared to be sweating throughout the interview. His gait was not tested. He appeared in mild distress. He is a healthy male who appeared his stated age. There was significant evidence of psychomotor retardation. He described his mood as depressed. His affect was restricted in range and mood congruent. His thought process was linear, logical but superficial. His thought content showed no evidence of active homicidal ideation and he denied any current suicidal ideation. He did not appear to be responding to internal stimuli. There was no clear evidence of delusional thinking. He was alert and oriented to person place and time. His recent and remote memory appeared intact. No abnormal involuntary motor movement appreciated. His insight is impaired. His judgment was poor. His impulse control appeared limited. Vitals/I&O/Wt Last Vital Signs Temp 97.7 F 07/12/23 12:00 Pulse 76 07/12/23 12:00 Resp 16 07/12/23 12:00 BP 132/78 07/12/23 12:00 Pulse Ox 97 07/12/23 12:00 O2 Del Method Room Air 07/12/23 12:00 Data NPU 07/10/23 00:23 07/10/23 00:23 A&P Assessment and plan (1) Depression, unspecified: (2) Impulse control disorder, unspecified: (3) Alcohol dependence with alcohol-induced mood disorder: (4) Alcohol withdrawal: Plan 32-year-old male history of alcohol dependence and poor impulse control reporting depression and suicidal ideation. The patient appears to be in alcohol withdrawal at this time and would likely benefit from continued inpatient hospitalization. #1.? Engage patient in individual milieu and group therapy. #2?? Recommend sober living treatment at the highest level of care to which the patient is willing to commit. #3??? CIWA for alcohol withdrawal. #4?? TO-15 minute checks #5?? [facility] referral for substance abuse treatment. Continue Lexapro 10mg daily. #6 Naltrexone oral 50mg today with plan to give vivitrol IM 380mg tommorow. Involuntary Hold Information 2 96 Hour Hold: 96 Hour Involuntary Admission: No Attestations NPU 2 Medical Necessity Statement*: Inpatient hospitalization is medically necessary and deemed to ?be ?the clinically appropriate intervention ?at this time.? We will monitor/initiate medications and make changes as indicated. The patient?s likely length of stay 1-2 days. Coding Level of Care Code Acute Code for g Fwd Diagnoses Depression, unspecified F32.A Impulse control disorder, unspecified F63.9 Alcohol dependence with alcohol-induced mood disorder F10.24 Alcohol withdrawal F10.931
[2023-07-12] MEDS: NALTREXONE 50 MG 1 EACH PO ×2 (17:39→20:54)
[2023-07-12] MEDS: hyDROXYzine 25 mg Capsule 50 MG PO (17:41)
--- NOTE | 2023-07-12 17:55 | PC.NURSE ---
Preformed a room check, no contraband recovered.
[2023-07-12 19:18] VITALS: BP 123/74; PULSE 73; RESP 16; TEMP 36.6; O2SAT 95
[2023-07-12] MEDS: OLANZapine 5 mg ODT PO (20:54)
[2023-07-12] MEDS: trazodone 50 mg Tablet PO (20:54)
[2023-07-13] VITALS: BP 117/79; PULSE 75; RESP 14; TEMP 36.4; O2SAT 96
[2023-07-13 04:00] VITALS: BP 123/83; PULSE 60; RESP 18; TEMP 36.6; O2SAT 97
[2023-07-13 08:00] VITALS: BP 118/75; PULSE 63; RESP 20; TEMP 36.5; O2SAT 96
[2023-07-13] MEDS: folic acid 1 mg Tablet PO (09:27)
[2023-07-13] MEDS: multivitamin therapeutic Tablet 1 TAB PO (09:27)
[2023-07-13] MEDS: escitalopram 10 mg Tablet PO (09:27)
[2023-07-13] MEDS: thiamine 100 mg Tablet PO (09:27)
[2023-07-13] MEDS: VIVITROL IM (09:28)
[2023-07-13] MEDS: nicotine 4 mg lozenge MUCOUS MEM (09:28)
--- NOTE | 2023-07-13 11:23 | PC.NURSE ---
THIS NURSE WHILE PREPARING FOR MEDICATION ADMINISTRATION ON 07/13/23 NOTICED THAT PREVIOUS NURSE ON REFERENCE DATA EXPERT HAD GIVEN AN ADDITIONAL DOSE OF NALTREXONE 50MG ON 07/12/23@2053. THIS NURSE NOTIFIED PHYSICIAN. PHYSICIAN ORDERED FOR THE ORAL TO BE DISCONTINUED HE WILL BE RECEIVING IM VIVITROL ON 07/13/23. THIS NURSE NOTIFIED DARLIN VILLANUEVA ACID PATROLLER AND NURSE [employer] PRESS OPERATOR SCOUT DOMINGUEZ.
--- NOTE | 2023-07-13 13:04 | P.NPUDS_ITS ---
Diagnoses at Discharge Discharge Diagnosis (1) Depression, unspecified: Status: Acute (2) Impulse control disorder, unspecified: Status: Acute (3) Alcohol dependence with alcohol-induced mood disorder: Status: Acute (4) Alcohol withdrawal: Status: Acute Reason for Visit Reason for Visit: SI Brief History: History of Present Illness Jj Buchanan is a 32 year old male who presented to the emergency department with suicidal ideation as he had allegedly attempted to wrap a rope around his neck and hang himself. The patient reports that he does not remember the details of what it happened as he had reported that he had been drinking for several hours. The patient was admitted to the neuropsychiatric unit for further evaluation and treatment. He reports that he drinks on a daily basis for several years with a history of increased tolerance, and history of significant alcohol withdrawal. He also reports that he can drink more than 2 pints of alcohol daily. He reports having problems with anger and states that he had put his hand through a window after he had become upset yesterday. He reports having daily use of marijuana as well and reported that he had previously used methamphetamine although he denies its use and several years. He reports that he has had depression for several months and reports previous trials on antidepressants. He reports feeling hopeless and states that he has low energy and low motivation. He reports that he wakes up not feeling rested. He reports having continued stress at home with his and children and states that he becomes angry very easily. He has reported having problems with managing his temper for several years. He has reported having previous suicide attempts before. Patient's blood alcohol was 350 on admission. Inpatient psychiatric history: Patient reports multiple inpatient hospitalizations but was unable to recall when his last admission was. Outpatient psychiatric history: He had reported previous diagnosis of depression and states that he had previously been on mirtazapine. He had reportedly received treatment at [facility] on an outpatient basis. Drug and alcohol history: He had reported alcohol use beginning in his teenage years. He reports continuous daily drinking and reports a history of alcohol withdrawal symptoms including shakes. He has reported having been in [facility] in 2018 for alcohol abuse. He does report a past history of methamphetamine use and reports daily use of marijuana for several years. Medical history: None Surgical history: Carpal tunnel surgery left hand Allergies: Codeine history: None Legal history: He reports having history of having been in [facility] before in the past with his longest period of incarceration being 8 months. He is currently not on parole. He had reported having legal charges for the possession of methamphetamine in the past as well. Family psychiatric history: Alcoholism in biological parents along with history of depression in the mother. Current medications: None Social history: Patient reports daily nicotine use. He reports that he currently lives with his for 10 years. He reports that he has children from a previous relationship who live with their mother. He reports that he was raised by his grandmother. He reported having a traumatic childhood but did not wish to go into detail. He reports that he had struggled in school and dropped out of school in the ninth grade. He reports his parents were not together while he was growing up and he has 1 brother and 4 stepsisters. 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 He had moved to [place] recently after spending the last few years in [place], [place]. Hospital Course Hospital Course The patient had endorsed significant depression and showed evidence of significant alcohol withdrawal and was placed on alcohol withdrawal protocol. He had required Ativan for alcohol related withdrawal for the next 2 days. The patient after 72 hours did not appear to show any signs of alcohol withdrawal. He was motivated to consider a medication to reduce cravings for alcohol and the patient was discharged on Vivitrol IM 380 mg at the date of discharge. Patient was also started on Lexapro to target anxiety and depression without any noted side effects. During the hospitalization, the patient had routine laboratory studies which were within normal limits except for a few outliers.? Additionally, there was a general medical evaluation which was also within normal limits and revealed no new acute processes. ?At the time of discharge, lethality was denied.? Mood and anxiety were well managed at the time of discharge. The patient endorsed a plan to avoid all drugs of abuse and follow up with the aftercare recommendations of the treatment team.? The patient was evaluated and deemed to be absent credible lethality and had achieved the maximum benefit from an inpatient hospitalization, and so was discharged. ? Involuntary Hold Information 96 Hour Hold: 96 Hour Involuntary Admission: No Mental Status Exam MSE Comments: Patient had a brien complexion and appeared in no acute distress today. His gait was not tested. He is a healthy male who appeared his stated age. There was evidence of mild psychomotor retardation. He described his mood as better. His affect was brighter on discharge. His thought process was linear, logical and goal directed. His thought content showed no evidence of active homicidal ideation and he denied any current suicidal ideation. He did not appear to be responding to internal stimuli. There was no clear evidence of delusional thinking. He was alert and oriented to person place and time. His recent and remote memory appeared intact. No abnormal involuntary motor movement appreciated. His insight is improved. His judgment was fair. His impulse control appeared better. Discharge Data Studies Completed and Pending: Laboratory Results WBC 9.71 10^3/uL (3.2 9-11.43) 07/10/23 00:23 RBC 5.33 10^6/uL (3.8 5-5.65) 07/10/23 00:23 Hgb 17.80 g/dL (11.27 -16.99) H 07/10/23 00:23 Hct 51.1 % (37-53) 07/10/23 00: MCV 95.9 fl (82-101) 07/10/23 00: MCH 33.4 pg (27-33) H 07/10/23 00: MCHC 34.8 g/dL (30-55) 07/10/23 00: RDW 13.9 % (12.1-15.1 ) 07/10/23 00:23 Plt Count 272 10^3/cmm (157 -399) 07/10/23 00:23 MPV 9.9 fL (7.4-10.4) 07/10/23 00: Neut % (Auto) 60.3 % 07/10/23 00:23 Lymph % (Auto) 29.6 % 07/10/23 00:23 [place] % (Auto) 5.0 % 07/10/23 00:23 Eos % (Auto) 3.9 % 07/10/23 00:23 Baso % (Auto) 0.9 % 07/10/23 00:23 Neut # (Auto) 5.85 10^3/uL (1.8 -7.7) 07/10/23 00:23 Lymph # (Auto) 2.9 10^3/uL (0.8- 4.8) 07/10/23 00:23 Clarion # (Auto) 0.5 10^3/uL (0.2- 0.9) 07/10/23 00:23 Eos # (Auto) 0.4 10^3/uL (0.0- 0.8) 07/10/23 00:23 Baso # (Auto) 0.1 10^3/uL (0.0- 0.1) 07/10/23 00:23 Nucleated RBC % (a uto) 0 % 07/10/23 00: Nucleated RBCs # 0.0 /100WBC 07/10/23 00:23 Sodium 141 mmol/L (136-1 45) 07/10/23 00:23 Potassium 4.0 mmol/L (3.5-5 .1) 07/10/23 00:23 Chloride 108 mmol/L (98-10 7) H 07/10/23 00:23 Carbon Dioxide 22 mmol/L (22-29) 07/10/23 00: Anion Gap 15.0 (5-19) 07/10/23 00:23 BUN 6 mg/dL (6-20) 07/10/23 00: Creatinine 0.8 mg/dL (0.7-1. 2) 07/10/23 00:23 GFR Calculation 110.7 mL/min (90- 130) 07/10/23 00: Glucose 109 mg/dL (65-115 ) 07/10/23 00:23 Calculated Osmolal ity 290 mOsm/kg (285- 295) 07/10/23 00:23 Calcium 8.9 mg/dL (8.5-10 .5) 07/10/23 00:23 Total Bilirubin 0.3 mg/dL (0.15-1 .2) 07/10/23 00: AST 53 U/L (0-40) H 07/10/23 00:23 ALT 44 U/L (0-41) H 07/10/23 00:23 Alkaline Phosphata se 151 U/L (40-130) H 07/10/23 00:23 Total Protein 8.0 g/dL (6.6-8.7 ) 07/10/23 00: Albumin 4.5 g/dL (3.5-5.2 ) 07/10/23 00: Globulin 3.5 g/dL (1.3-4.6 ) 07/10/23 00: TSH 1.70 uIU/mL (0.27 -4.20) 07/10/23 00:23 Urine Color Yellow (Yellow) 07/10/23 00:20 Urine Appearance Clear (CLEAR) 07/10/23 00:20 Urine pH 6 (5-7) 07/10/23 00:20 Ur Specific Gravit y 1.010 (1.005-1.0 30) 07/10/23 00:20 Urine Protein Neg (Negative) 07/10/23 00:20 Urine Glucose (UA) Norm (Normal) 07/10/23 00:20 Urine Ketones Negative (Negati ve) 07/10/23 00:20 Urine Blood Neg (Negative) 07/10/23 00:20 Urine Nitrate Negative (Negati ve) 07/10/23 00:20 Urine Bilirubin Neg (Negative) 07/10/23 00:20 Urine Urobilinogen Neg mg/dL (Negati ve) 07/10/23 00:20 Ur Leukocyte Jasmyne ase Negative (Negati ve) 07/10/23 00:20 Salicylates < 0.3 mg/dL (3-10 ) L 07/10/23 00:23 Urine Opiates Scre en Negative ng/mL (N egative) 07/10/23 00:20 Acetaminophen < 5.0 ug/mL (10-3 0) L 07/10/23 00:23 Ur Barbiturates Sc reen Negative ng/mL (N egative) 07/10/23 00:20 Ur Phencyclidine S crn Negative ng/mL (N egative) 07/10/23 00:20 Ur Amphetamines Sc reen Negative ng/mL (N egative) 07/10/23 00:20 U Benzodiazepines Scrn Negative ng/mL (N egative) 07/10/23 00:20 Urine Cocaine Scre en Negative ng/mL (N egative) 07/10/23 00:20 U Marijuana (THC) Screen Positive ng/mL (N egative) H 07/10/23 00:20 Ethyl Alcohol 302 mg/dL (0-10) H* 07/10/23 00:23 Adenovirus (PCR) Not detected (NO T DETECT) 07/10/23 00:39 C. pneumoniae DNA (PCR) Not detected (NO T DETECT) 07/10/23 00:39 Coronavirus 229E ( PCR) Not detected (NO T DETECT) 07/10/23 00:39 Human Metapneumovi r PCR Not detected (NO T DETECT) 07/10/23 00:39 Influenza A (H1) P CR Not detected (NO T DETECT) 07/10/23 00:39 Influ A (H1/09) PC R Not detected (NO T DETECT) 07/10/23 00:39 Influenza A (H3) P CR Not detected (NO T DETECT) 07/10/23 00:39 Influenza Type A ( PCR) Not detected (NO T DETECT) 07/10/23 00:39 Influenza Type B ( PCR) Not detected (NO T DETECT) 07/10/23 00:39 M. pneumoniae (PCR ) Not detected (NO T DETECT) 07/10/23 00:39 Parainfluenza 1 (P CR) Not detected (NO T DETECT) 07/10/23 00:39 Parainfluenza 2 (P CR) Not detected (NO T DETECT) 07/10/23 00:39 Parainfluenza 3 (P CR) Not detected (NO T DETECT) 07/10/23 00:39 Parainfluenza 4 (P CR) Not detected (NO T DETECT) 07/10/23 00:39 RSV Type A (PCR) Not detected (NO T DETECT) 07/10/23 00:39 RSV Type B (PCR) Not detected (NO T DETECT) 07/10/23 00:39 Entero/Rhino (PCR) Not detected (NO T DETECT) 07/10/23 00:39 SARS-CoV-2 (PCR) Not detected (NO T DETECT) 07/10/23 00:39 Vitals: Last Vital Signs Temp 97.7 F 07/13/23 08:00 Pulse 63 07/13/23 08:00 Resp 20 H 07/13/23 08:00 BP 118/75 07/13/23 08:00 Pulse Ox 96 07/13/23 08:00 O2 Del Method Room Air 07/13/23 04:00 Discharge Plan Discharge Patient Disposition: Home Condition: Stable Prescriptions: New escitalopram oxalate 10 mg Tablet 10 mg PO DAILY 30 Days Qty: 30 1RF folic acid 1 mg Tablet 1 mg PO DAILY 30 Days Qty: 30 1RF Vitamin B-1 (mononitrate) 100 mg Tablet 100 mg PO DAILY 30 Days Qty: 30 1RF trazodone 50 mg Tablet 50 mg PO BEDTIME PRN (Reason: Sleep) 30 Days Qty: 30 1RF Vivitrol 380 mg suspension,extended rel recon 380 mg IM ONCE 28 Days Qty: 1 1RF Rx Instructions: Patient next IM due date is 08/10/23. trazodone 50 mg tablet 50 mg PO 2100 Qty: 30 0RF escitalopram oxalate [Lexapro] 10 mg tablet 10 mg PO DAILY Qty: 30 0RF Discharge Orders: Discharge Order (Routine); Ordered 07/13/23 Ordered By: Evgeny Carroll Referrals: [employer] [facility] [Other] [facility] [Other] (You have been referred. ) [facility] [Outside] Kevin French MD [Referring] - Discharge Diet: Usual diet Discharge Activity: Resume usual activity Patient Instructions: Opioid Safety Discharge Attestations NPU Time Spent in Discharge Care*: less than 30 min Specific Discharge Activities: Specific discharge activities: educating patient and discussing with correctional casework specialist/social workers/dc planners Coding Level of Care Code Acute Code for [facility] Fwd Diagnoses Depression, unspecified F32.A Impulse control disorder, unspecified F63.9 Alcohol dependence with alcohol-induced mood disorder F10.24 Alcohol withdrawal F10.937
[2023-07-13 13:24] VITALS: BP 118/75; PULSE 63; RESP 20; TEMP 36.5; O2SAT 96
== END 2023-07-13 14:45 | disposition home or self-care (01) | DRG 881 ==
LOC: ER 01:46 → NP 02:51
PROVIDERS: Admitting Provider Psychiatry & Neurology Psychiatry; Emergency Provider Emergency Medicine; Visit Provider Psychiatry & Neurology Psychiatry
DX: F32.A Depression, unspecified (principal); R45.851 Suicidal ideations; F10.239 Alcohol dependence with withdrawal, unspecified; Z59.00 Homelessness unspecified; F63.9 Impulse disorder, unspecified; F10.229 Alcohol dependence with intoxication, unspecified; Y90.8 Blood alcohol level of 240 mg/100 ml or more; Z72.0 Tobacco use; F15.11 Other stimulant abuse, in remission
CPT/HCPCS: 36415; 80053; 80306; 80307; 81003; 84443; 85025; 87486; 87581; 87633; 93005; 96372; 97150; 97165; 99285

== ENCOUNTER 2023-08-12 15:46 | Emergency (ER) | payer BC, MEDICAID, SELFPAY ==
[2023-08-12 15:56] VITALS: BP 119/69; PULSE 60; RESP 16; TEMP 37.2; O2SAT 96; BMI 24.3
--- NOTE | 2023-08-12 16:40 | ED_ITS ---
HPI - General Adult General: Chief complaint: General Medical Stated complaint: needs to be given shot Time Seen by Provider: 08/12/23 16:17 History of Present Illness: 32-year-old male patient comes in today for needing his injection of Vivitrol. Patient uses the medication for alcohol use disorder. Review of Systems General: Reports: 10 or more systems reviewed and unremarkable except in HPI and below PFSH ED PFSH: Medical History (Updated 08/12/23 @ 16:45 by GLORIA Delvalle) Psychiatric care Encounter for follow-up care involving plastic surgery of upper extremity (Unknown) Left arm Surgical History History of carpal tunnel surgery Left hand. Social History Smoking and tobacco/nicotine status: current every day tobacco/nicotine user Physical Exam Const: COMMON NORMALS: alert HENMT: COMMON NORMALS: normocephalic HEAD & SCALP: normocephalic Resp: COMMON NORMALS: normal respiratory effort Cardio: COMMON NORMALS: regular rate RATE: regular rate Extremity: COMMON NORMALS: normal to inspection Neuro: SENSORIUM/ORIENTATION: Yes alert Skin: COMMON NORMALS: turgor normal GENERAL SKIN EXAM: turgor normal Course Vital Signs: Vital signs: Vital Signs Temperature 98.9 F 08/12/23 15:56 Pulse Rate 60 08/12/23 15:56 Respiratory Rate 16 08/12/23 15:56 Blood Pressure 119/69 08/12/23 15:56 Pulse Oximetry 96 08/12/23 15:56 Oxygen Delivery Me thod Room Air 08/12/23 15:56 MDM - General Adult Medical Decision Making 32-year-old male comes in today for injection of home medication Vivitrol. Patient has a history of alcohol use disorder. Patient denies any other complaints or concerns. Patient was given medication and discharged home. No radiology studies performed this visit Discharge Plan Discharge Patient Disposition: Home Clinical Impression: Alcohol dependence with alcohol-induced mood disorder Condition: Stable Prescriptions: No Action escitalopram oxalate 10 mg Tablet 10 mg PO DAILY 30 Days Qty: 30 1RF folic acid 1 mg Tablet 1 mg PO DAILY 30 Days Qty: 30 1RF Vitamin B-1 (mononitrate) 100 mg Tablet 100 mg PO DAILY 30 Days Qty: 30 1RF trazodone 50 mg Tablet 50 mg PO BEDTIME PRN (Reason: Sleep) 30 Days Qty: 30 1RF Vivitrol 380 mg suspension,extended rel recon 380 mg IM ONCE 28 Days Qty: 1 1RF Rx Instructions: Patient next IM due date is 08/10/23. Lexapro 10 mg tablet 10 mg PO DAILY Qty: 30 0RF trazodone 50 mg tablet 50 mg PO 2100 Qty: 30 0RF Discharge Orders: Discharge ED (Routine); Ordered 08/12/23 Ordered By: Roland Davis Discharge Diet: Usual diet Discharge Activity: Increase activity as tolerated Patient Instructions: Alcohol Use Disorder (ED) Activity Restrictions/Additional Instructions: Follow-up with psychiatrist or PCP. Coding Level of Care Code ED [employer] Siding Mechanic for [employer]
--- NOTE | 2023-08-12 17:04 | PC.NURSE ---
per provider's request, this nurse administered pts vivtrol injection in pts left ventrogluteal space. pts vivitrol was brought by pt in a sealed box with a prescription with his name and from Dr. Carroll from [facility] in [place], [place]. this nurse mixed and administered injections per the instructions in the prescription box. the prescription was for vivitrol 380 mg/vial. this nurse mixed the medication with 3.4 mL of the sterile water supplied and pulled and administered 4.2 mL after reconstitution.
[2023-08-12 17:07] VITALS: BP 117/71; PULSE 58; RESP 16; TEMP 37.2; O2SAT 97
== END 2023-08-12 17:08 | disposition home or self-care (01) ==
PROVIDERS: Emergency Provider Nurse Practitioner Family
DX: F10.24 Alcohol dependence with alcohol-induced mood disorder (principal); Z72.0 Tobacco use
CPT/HCPCS: 99281

== ENCOUNTER 2023-09-22 13:56 | Emergency (ER) | payer BC, MEDICAID, SELFPAY ==
[2023-09-22 14:00] VITALS: BP 130/79; PULSE 78; RESP 16; TEMP 37.1; O2SAT 99
--- NOTE | 2023-09-22 14:09 | W.ED.RECABL ---
HPI - Recheck/Abnormal Lab/Rx General: Chief Complaint: Recheck/Abnormal Lab/Rx Stated Complaint: needs assistance with a shot Time Seen by Provider: 09/22/23 13:59 Source: patient Mode of arrival: ambulatory Limitations: no limitations History of Present Illness: Patient is a 33-year-old male patient comes in today for needing his injection of Vivitrol. Patient uses the medication for alcohol use disorder. Medication is prescribed by Dr. Chatman at [facility]. Had an appointment last week so they could administer medication but patient missed appointment because he had to work. States medication is working good and he is staying clean/sober. MD complaint: other (encounter for med administration ) Symptoms since prior visit: no new symptoms Associated symptoms: none Review of Systems Const: Denies: fever(s), chills, body aches, fatigue or malaise Card: Denies: chest pain Resp: Denies: dyspnea GI: Denies: abdominal pain or vomiting Neuro: Denies: headache(s) or dizziness PFS ED PFSH: Medical History Cannabis dependence with current use daily use Cigarette nicotine dependence without complication Methamphetamine use disorder, severe, in sustained remission, dependence Last use reported as 2021 Alcohol dependence with alcohol-induced mood disorder Last alcohol use 07/10/23 Psychiatric care Encounter for follow-up care involving plastic surgery of upper extremity (Unknown) Left arm Surgical History History of carpal tunnel surgery Left hand. Social History Smoking and tobacco/nicotine status: current every day tobacco/nicotine user Physical Exam Const: COMMON NORMALS: no acute distress, average body habitus, patient oriented x3, no limitations and alert Neuro: COMMON NORMALS: patient oriented x3 SENSORIUM/ORIENTATION: Yes alert Course Vital Signs: Vital signs: Vital Signs Temperature 98.8 F 09/22/23 14:00 Pulse Rate 78 09/22/23 14:00 Respiratory Rate 16 09/22/23 14:00 Blood Pressure 130/79 09/22/23 14:00 Pulse Oximetry 99 09/22/23 14:00 Oxygen Delivery Me thod Room Air 09/22/23 14:00 MDM - Recheck/Abnormal Lab/Rx Medical Decision Making Patient arrives with unopened prescription of his 380mg IM Vivitrol. Dose was administered to patient by RN. He is cleared for discharge. Medical Records I reviewed the patient's medical records. No radiology studies performed this visit Discharge Plan Discharge Patient Disposition: Home Clinical Impression: Encounter for medication administration Condition: Stable Prescriptions: No Action mirtazapine 15 mg tablet 15 mg PO BEDTIME Qty: 30 4RF Rx Instructions: Take one tablet at bedtime Vivitrol 380 mg suspension,extended rel recon 380 mg IM ONCE 28 Days Qty: 1 6RF Rx Instructions: Injection every 28 days acamprosate 333 mg tablet,delayed release (DR/EC) 666 mg PO BID Qty: 120 3RF Rx Instructions: Take two tablets twice per day-administer with mid-day and evening meals Discharge Orders: Discharge ED (Routine); Ordered 09/22/23 Ordered By: Mandi Guerra 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
== END 2023-09-22 14:27 | disposition home or self-care (01) ==
PROVIDERS: Emergency Provider Physician Assistant
DX: Z79.899 Other long term (current) drug therapy (principal); Z72.0 Tobacco use
CPT/HCPCS: 99281

== ENCOUNTER 2023-10-22 10:39 | Emergency (ER) | payer BC, MEDICAID, SELFPAY ==
[2023-10-22 10:43] VITALS: BP 130/86; PULSE 75; RESP 18; TEMP 36.4; O2SAT 92; BMI 23.6
--- NOTE | 2023-10-22 10:51 | PC.NURSE ---
PT WALKED OUT OF ROOM WITHOUT WAITING FOR AMA FORM. PT LEFT WITHOUT SIGNING.
--- NOTE | 2023-10-22 10:51 | W.ED.GENADLT ---
HPI - General Adult General: Chief complaint: General Medical Stated complaint: Needs a shot Time Seen by Provider: 10/22/23 10:44 History of Present Illness: Patient presents to the emergency room wanting his Vivitrol injection to be done by our staff. I had discussed this with the other physician in the emergency room and the risk of giving a medication to the patient in the emergency room that was not administered by our pharmacy is too great. I discussed this with him. He becomes angry. He then tells me all done this for the last 2 months. And I explained to them that this is also an appropriate that using the emergency room as your monthly injection source when you miss an appointment is not appropriate. Apparently had an appointment in the clinic to have this done last week and missed it and has done this every month. At this point he gets up and rips off his blood pressure cuff and storms out and says I guess I will go down the road. Related Data Previous Rx's Medication Instructions Recorded acamprosate 333 mg tablet,delayed 666 mg (2 x 333 mg) PO BID #120 08/23/23 release tabs mirtazapine 15 mg tablet 15 mg PO BEDTIME #30 tabs 08/23/23 naltrexone microspheres 380 mg 380 mg IM ONCE 28 days #1 ea 08/23/23 intramuscular suspension,extended release (Vivitrol) Allergies Allergy/AdvReac Type Severity Reaction Status Date / Time codeine Allergy STEVE-[place] Verified 10/22/23 10:47 Lip/Tongue/Throat Review of Systems Narrative: Unable to obtain [facility] ED PFSH: Medical History Cannabis dependence with current use daily use Cigarette nicotine dependence without complication Methamphetamine use disorder, severe, in sustained remission, dependence Last use reported as 2021 Alcohol dependence with alcohol-induced mood disorder Last alcohol use 07/10/23 Psychiatric care Encounter for follow-up care involving plastic surgery of upper extremity (Unknown) Left arm Surgical History History of carpal tunnel surgery Left hand. Social History Smoking and tobacco/nicotine status: current every day tobacco/nicotine user Physical Exam Narrative: EXAM NARRATIVE: General: Alert, no acute distress. Skin: warm and dry Head: Normocephalic Neck: Trachea midline Eye: Extraocular movements are intact. Ears, nose, mouth and throat: Oral mucosa moist Respiratory: Respirations are non-labored Musculoskeletal: Normal ROM Neurological: Alert and oriented, No focal neurological deficit observed. Psychiatric: Patient quickly becomes angry Course Vital Signs: Vital signs: Vital Signs Temperature 97.5 F L 10/22/23 10:43 Pulse Rate 75 10/22/23 10:43 Respiratory Rate 18 10/22/23 10:43 Blood Pressure 130/86 10/22/23 10:43 Pulse Oximetry 92 10/22/23 10:43 Oxygen Delivery Me thod Room Air 10/22/23 10:43 MDM - General Adult Medical Decision Making Patient has no emergent problems at this time and gets up and leaves before I have a chance to completely examine him. ?I am not comfortable giving a medication that was administered from an outside pharmacy. ?Also this is an inappropriate use of the emergency room to monthly come and demand administration of the medication because of missed appointments that would be appropriate -Patient has no active signs of withdrawal. His vital signs are normal. The administration of this medication is not emergent. I suggest he keep his appointments and have his medication administered in appropriate manner. Assessment and plan: Alcohol abuse history - Discharged home No radiology studies performed this visit Discharge Plan Discharge Patient Disposition: Home Condition: Stable Prescriptions: No Action mirtazapine 15 mg tablet 15 mg PO BEDTIME Qty: 30 4RF Rx Instructions: Take one tablet at bedtime Vivitrol 380 mg suspension,extended rel recon 380 mg IM ONCE 28 Days Qty: 1 6RF Rx Instructions: Injection every 28 days acamprosate 333 mg tablet,delayed release (DR/EC) 666 mg PO BID Qty: 120 3RF Rx Instructions: Take two tablets twice per day-administer with mid-day and evening meals Discharge Orders: Discharge ED (Routine); Ordered 10/22/23 Ordered By: Belkys Sylvester Discharge Diet: As Directed Discharge Activity: Resume usual activity Patient Instructions: Opioid Safety, Pain Management 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
== END 2023-10-22 10:59 | disposition home or self-care (01) ==
PROVIDERS: Emergency Provider Emergency Medicine
DX: Z00.00 Encounter for general adult medical examination without abnormal findings (principal); Z53.8 Procedure and treatment not carried out for other reasons; Z72.0 Tobacco use
CPT/HCPCS: 99281

== ENCOUNTER 2024-03-20 11:44 | Emergency (ER) | payer SELFPAY ==
[2024-03-20 12:01] VITALS: BP 115/83; PULSE 138; RESP 22; TEMP 36.4; O2SAT 98; BMI 22.1
[2024-03-20 13:03] LABS: Basophils # 0.1 10^3/uL (0.0-0.1); Basophils % 0.5 %; Eosinophils # 0.1 10^3/uL (0.0-0.8); Hematocrit 52.2 % (37-53); Lymphocytes # 1.5 10^3/uL (0.8-4.8); Lymphocytes % 13.6 %; Mean Corpuscular HGB Conc 34.3 g/dL (30-55); Mean Corpuscular Hemoglobin 31.9 pg (27-33); Mean Platelet Volume 10.8 fL (7.4-10.4); Monocytes # 0.8 10^3/uL (0.2-0.9); Monocytes % 7.5 %; Neutrophils # 8.59 10^3/uL (1.8-7.7); Neutrophils % 77.1 %; Nucleated Red Blood Cells % 0 %; Platelet Count 212 10^3/cmm (157-399); Red Blood Count 5.61 10^6/uL (3.85-5.65); Red Cell Distribution Width 13.8 % (12.1-15.1); White Blood Count 11.13 10^3/uL (3.29-11.43)
[2024-03-20 13:23] LABS: Alanine Aminotransferase 45 U/L (0-41); Albumin Level 4.6 g/dL (3.5-5.2); Alkaline Phosphatase 99 U/L (40-130); Aspartate Amino Transferase 113 U/L (0-40); Blood Urea Nitrogen 23 mg/dL (6-20); Calcium 10.5 mg/dL (8.5-10.5); Carbon Dioxide 21 mmol/L (22-29); Chloride 88 mmol/L (98-107); Creatinine Clr Calc Pharmacy 56.4177; Globulin 3.2 g/dL (1.3-4.6); Glomerular Filtration Rate 43.2 mL/min (90-130); Glucose 87 mg/dL (65-115); Lipase 100 U/L (13-60); Osmolality Calculated 271 mOsm/kg (285-295); Sodium 129 mmol/L (136-145); Total Bilirubin 1.7 mg/dL (0.15-1.2); Total Protein 7.8 g/dL (6.6-8.7)
--- NOTE | 2024-03-20 13:23 | ED_ITS ---
HPI - Male Genitourinary 2 General: Chief complaint: Urogenital-Male Stated complaint: urinary-abdominal Time Seen by Provider: 03/20/24 13:14 Source: patient Mode of arrival: ambulatory Limitations: no limitations History of Present Illness: Patient is a 33-year-old male with past medical history of kidney stones presents to the emergency department with sudden onset right back pain at 1100 today. Patient states that he went to the bathroom, did not void much and 5 minutes later felt sudden urge to void again and had onset of the right lower back pain. States it has radiated around to his lower abdomen, this feels identical to prior kidney stones. Denies any blood in his urine, states he feels like he has the urge to go but cannot urinate. Has been vomiting and feels nauseous at this time. He is tachycardic, likely secondary to pain as he is appearing uncomfortable, pacing around the room. He denies any fever, diarrhea or constipation, or other symptoms at this time. He has not taken anything for pain. MD Complaint: other (Right lower back pain, urinary urgency) Onset (ago): hour(s) Duration: constant Location: right flank Radiation: abdomen Severity: severe Quality: sharp Relieving factors: none Exacerbating factors: none Associated symptoms: Reports nausea and vomiting; Deny dysuria Related Data Previous Rx's Medication Instructions Recorded mirtazapine 15 mg tablet 15 mg PO BEDTIME #30 tabs 08/23/23 naltrexone microspheres 380 mg 380 mg IM ONCE 28 days #1 ea 08/23/23 intramuscular suspension,extended release (Vivitrol) Allergies Allergy/AdvReac Type Severity Reaction Status Date / Time codeine Allergy RUPALIY-[place] Verified 10/22/23 10:47 Lip/Tongue/Throat Review of Systems 2 General: Reports: 10 or more systems reviewed and unremarkable except in HPI and below Const: Denies: fever(s), chills, change in appetite, change in weight or diaphoresis ENMT: Denies: throat pain or hoarseness Card: Denies: chest pain, palpitations or lightheadedness Resp: Denies: dyspnea, productive cough or wheezing GI: Reports: abdominal pain, nausea and vomiting; Denies: diarrhea, constipation, bloating, change in stool character or hematochezia : Reports: flank pain, difficulty urinating and urinary urgency; Denies: dysuria or urinary frequency Musc: Reports: back pain; Denies: neck pain Skin/Breast: Denies: rash or new lesions Neuro: Denies: headache(s) or dizziness PFSH ED 2 PFSH: Medical History Cannabis dependence with current use daily use Cigarette nicotine dependence without complication Methamphetamine use disorder, severe, in sustained remission, dependence Last use reported as 2021 Alcohol dependence with alcohol-induced mood disorder Last alcohol use 07/10/23 Psychiatric care Encounter for follow-up care involving plastic surgery of upper extremity (Unknown) Left arm Surgical History History of carpal tunnel surgery Left hand. Social History Smoking and tobacco/nicotine status: current every day tobacco/nicotine user Physical Exam 2 Const: COMMON NORMALS: patient oriented x3 GENERAL APPEARANCE: cooperative ORIENTATION/CONSCIOUSNESS: Yes awake OTHER: Appears uncomfortable, pacing around emergency room clutching right side. HENMT: COMMON NORMALS: normocephalic, atraumatic and moist oral mucous membranes HEAD & SCALP: normocephalic and atraumatic Eye: COMMON NORMALS: EOMs intact bilaterally and conjunctivae normal C ONJUNCTIVA: Yes conjunctivae normal Neck/C-Spine: COMMON NORMALS: full ROM and no meningeal signs Resp: COMMON NORMALS: normal respiratory effort, No retractions, No use of accessory muscles and clear to auscultation bilaterally AUSCULTATION: clear to auscultation bilaterally Cardio: COMMON NORMALS: regular rhythm, No gallops present (Cardio), No murmurs present (Cardio) and No rub (Cardio) RATE: tachycardic RHYTHM: r egular rhythm GI: COMMON NORMALS: Normal to inspection, nondistended, normoactive bowel sounds present and Soft to palpation PALPATION: Yes Soft to palpation and Yes Tenderness to palpation present (GI) (Tender to bilateral lower quadrants) : BLADDER/KIDNEY EXAM: Yes CVA tenderness on the right Back/Pelvis: GENERAL BACK: Yes CVA tenderness Extremity: COMMON NORMALS: normal to inspection and full ROM Neuro: COMMON NORMALS: patient oriented x3, moves all extremities, no focal motor deficits and no sensory deficits noted MENINGEAL SIGNS: Yes no meningeal signs Skin: COMMON NORMALS: no rashes or lesions noted GENERAL SKIN EXAM: no rashes or lesions noted Course 2 Vital Signs: Vital signs: Vital Signs Temperature 97.5 F L 03/20/24 12:01 Pulse Rate 103 H 03/20/24 15:06 Respiratory Rate 16 03/20/24 15:06 Blood Pressure 131/67 03/20/24 15:06 Pulse Oximetry 95 03/20/24 15:06 Oxygen Delivery Me thod Room Air 03/20/24 15:06 MDM - Male Medical Decision Making Patient presented with acute onset right low back pain radiating into lower abdomen. History of kidney stones, stating this felt similar. Was also having some urinary urgency. He was able to give us a urine here, though it was grossly contaminated and thus not reliable. He was notably agitated on exam, urine drug screen does show evidence of methamphetamines, of which she has history of substance use disorder. Did have signs of dehydration on metabolic panel, was bolused 2 L of fluids for this. Heart rate was noted to decrease after pain medications and fluids, though heart rate could have been elevated secondary to amphetamine abuse. Pain was essentially gone after receiving dose of [place], CT abdomen pelvis did not show any acute findings other than bilateral renal calcifications and no evidence of pyelonephritis or hydronephrosis. Patient is stable for discharge and close follow-up with primary care, strict return precautions were given of which she understands. Discussed case with Dr. Beckman here in the ED. Lab Data 03/20/24 12:55 03/20/24 12:55 Radiology Impressions Abdomen/Pelvis CT 03/20/24 13:31 IMPRESSION: 1. Normal appendix. 2. Bilateral lower pole renal calcifications without obstruction. No evidence for pyelonephritis. 3. No ureteral calcifications identified. 4. Slight increased fluid in the small bowel but no obstructive pattern. Laboratory Results WBC 11.13 10^3/uL (3.29-11.43) 03/20/24 12:55 RBC 5.61 10^6/uL (3.85-5.65) 03/20/24 12:55 Hgb 17.90 g/dL (11.27-16.99) H 03/20/24 12:55 Hct 52.2 % (37-53) 03/20/24 12:55 MCV 93.0 fl (82-101) 03/20/24 12:55 MCH 31.9 pg (27-33) 03/20/24 12:55 MCHC 34.3 g/dL (30-55) 03/20/24 12:55 RDW 13.8 % (12.1-15.1) 03/20/24 12:55 Plt Count 212 10^3/cmm (157-399) 03/20/24 12:55 MPV 10.8 fL (7.4-10.4) H 03/20/24 12:55 Neut % (Auto) 77.1 % 03/20/24 12:55 Lymph % (Auto) 13.6 % 03/20/24 12:55 Delta % (Auto) 7.5 % 03/20/24 12:55 Eos % (Auto) 1.0 % 03/20/24 12:55 Baso % (Auto) 0.5 % 03/20/24 12:55 Neut # (Auto) 8.59 10^3/uL (1.8-7.7) H 03/20/24 12:55 Lymph # (Auto) 1.5 10^3/uL (0.8-4.8) 03/20/24 12:55 Delta # (Auto) 0.8 10^3/uL (0.2-0.9) 03/20/24 12:55 Eos # (Auto) 0.1 10^3/uL (0.0-0.8) 03/20/24 12:55 Baso # (Auto) 0.1 10^3/uL (0.0-0.1) 03/20/24 12:55 Nucleated RBC % (auto) 0 % 03/20/24 12:55 Nucleated RBCs # 0.0 /100WBC 03/20/24 12:55 Sodium 129 mmol/L (136-145) L 03/20/24 12:55 Potassium 4.0 mmol/L (3.5-5.1) 03/20/24 12:55 Chloride 88 mmol/L (98-107) L 03/20/24 12:55 Carbon Dioxide 21 mmol/L (22-29) L 03/20/24 12:55 Anion Gap 24.0 (5-19) H 03/20/24 12:55 BUN 23 mg/dL (6-20) H 03/20/24 12:55 Creatinine 1.8 mg/dL (0.7-1.2) H 03/20/24 12:55 GFR Calculation 43.2 mL/min (90-130) L 03/20/24 12:55 Glucose 87 mg/dL (65-115) 03/20/24 12:55 Calculated Osmolality 271 mOsm/kg (285-295) L 03/20/24 12:55 Calcium 10.5 mg/dL (8.5-10.5) 03/20/24 12:55 Total Bilirubin 1.7 mg/dL (0.15-1.2) H 03/20/24 12:55 AST 113 U/L (0-40) H 03/20/24 12:55 ALT 45 U/L (0-41) H 03/20/24 12:55 Alkaline Phosphatase 99 U/L (40-130) 03/20/24 12:55 Total Protein 7.8 g/dL (6.6-8.7) 03/20/24 12:55 Albumin 4.6 g/dL (3.5-5.2) 03/20/24 12:55 Globulin 3.2 g/dL (1.3-4.6) 03/20/24 12:55 Lipase 100 U/L (13-60) H 03/20/24 12:55 Urine Color Dark yellow (Yellow) A 03/20/24 13:37 Urine Appearance Cloudy (CLEAR) A 03/20/24 13:37 Urine pH 5.0 (5-7) 03/20/24 13:37 Ur Specific [place] 1.030 (1.005-1.030) 03/20/24 13:37 Urine Protein 1+ (Negative) A 03/20/24 13:37 Urine Glucose (UA) Negative (Normal) 03/20/24 13:37 Urine Ketones 1+ (Negative) H 03/20/24 13:37 Urine Blood Negative (Negative) 03/20/24 13:37 Urine Nitrate Negative (Negative) 03/20/24 13:37 Urine Bilirubin 2+ (Negative) H 03/20/24 13:37 Urine Urobilinogen 1.0 mg/dL (Negative) 03/20/24 13:37 Ur Leukocyte Esterase 1+ (Negative) A 03/20/24 13:37 Urine RBC 6-10 /hpf (0-2) 03/20/24 13:37 Urine WBC 11-20 /hpf (0-5) H 03/20/24 13:37 Ur Squamous Epith Cells 21-50 /hpf (0-5) H 03/20/24 13:37 Amorphous Sediment Not Reportable 03/20/24 13:37 Urine Bacteria None seen /hpf (NONE) 03/20/24 13:37 Hyaline Casts 123.71 /lpf 03/20/24 13:37 Fine Granular Casts 5-10 /lpf H 03/20/24 13:37 Urine Opiates Screen Positive ng/mL (Negative) H 03/20/24 13:37 Ur Barbiturates Screen Negative ng/mL (Negative) 03/20/24 13:37 Ur Phencyclidine Scrn Negative ng/mL (Negative) 03/20/24 13:37 Ur Amphetamines Screen Positive ng/mL (Negative) H 03/20/24 13:37 U Benzodiazepines Scrn Positive ng/mL (Negative) H 03/20/24 13:37 Urine Cocaine Screen Negative ng/mL (Negative) 03/20/24 13:37 U Marijuana (THC) Screen Positive ng/mL (Negative) H 03/20/24 13:37 Ethyl Alcohol < 10 mg/dL (0-10) 03/20/24 12:55 All radiology interpretation(s) finalized by discharge Discharge Plan Discharge Patient Disposition: Home Clinical Impression: Dehydration, Nephrolithiasis, Methamphetamine use disorder, severe, in sustained remission, dependence Condition: Stable Prescriptions: No Action mirtazapine 15 mg tablet 15 mg PO BEDTIME Qty: 30 4RF Rx Instructions: Take one tablet at bedtime Vivitrol 380 mg suspension,extended rel recon 380 mg IM ONCE 28 Days Qty: 1 6RF Rx Instructions: Injection every 28 days Discharge Orders: Discharge ED (Routine); Ordered 03/20/24 Ordered By: Jc Lockwood Patient Instructions: Dehydration (ED), Kidney Stones (ED) Activity Restrictions/Additional Instructions: Drink plenty of fluids. Follow-up with your primary care provider. Return with any fevers, worsening of pain, severe nausea vomiting, urinary symptoms, or other symptoms of concern. 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
[2024-03-20] MEDS: HYDROcodone-acetaminophen 7.5-325 mg Tablet 1 TAB PO (13:28)
[2024-03-20] MEDS: ondansetron 4 MG Tablet 8 MG PO (13:28)
--- NOTE | 2024-03-20 13:31 | CT_ITS ---
WS: [id number] CT ABDOMEN AND PELVIS WITH CONTRAST HISTORY: lower abd pain TECHNIQUE: Imaging performed of the abdomen and pelvis with IV contrast. Single phase imaging of the abdomen. Coronal and sagittal reformats are submitted. All CT scans at [facility] use at [address] one of these dose optimization techniques: automated exposure control; mA and/or kV adjustment per patient size (includes targeted exams where dose is matched to clinical indication); or iterative re construction. IV CONTRAST: Omnipaque 350; 100 mL IV. Oral contrast: No DLP: 346.43 mGy.cm COMPARISON: 06/25/2023 Lower thorax: Lung bases are clear. Heart is normal size. No hiatal hernia. Liver/biliary system: Normal size with no intrahepatic dilatation. Gallbladder: Normal. No gallstones or wall thickening. No pericholecystic fluid. Pancreas: Normal size pancreas and pancreatic duct. No adjacent inflammation. Spleen: Normal size spleen. No mass or infarct. Adrenal glands: Normal. Right kidney: Normal size kidney. Nonobstructing 4 mm calcification lower pole. No obstruction of the kidney or hydroureter. Left kidney: Normal size kidney with nonobstructing central calcifications. No renal or ureteral obst ruction. Aorta: Normal. Lymphadenopathy: None. Free fluid: None. GI tract: Stomach is moderately distended with fluid. There are a few small bowel loops which are not dilated with increased fluid. No obstruction. Normal appendix. Abdominal wall: Unremarkable abdominal wall. No hernia. Pelvis: No free fluid or adenopathy within the pelvis. Bones: Unremarkable. CT/CT abdomen pelvis w con* [id number] IMPRESSION: 1. Normal appendix. 2. Bilateral lower pole renal calcifications without obstruction. No evidence for pyelonephritis. 3. No ureteral calcifications identified. 4. Slight increased fluid in the small bowel but no obstructive pattern.
[2024-03-20] MEDS: sodium chloride 0.9% 1,000 ML 999 ML IV ×2 (13:35→15:02)
[2024-03-20 13:52] LABS: Bilirubin Urine 2+ (Negative); Blood Urine Negative (Negative); Glucose Urine UA Negative (Normal); Ketones Urine 1+ (Negative); Leukocyte Esterase Urine 1+ (Negative); Nitrate Urine Negative (Negative); Protein Urine 1+ (Negative); Urine Appearance Cloudy (CLEAR); Urine Color Dark Yellow (Yellow)
[2024-03-20 14:05] LABS: Alcohol Level < 10 mg/dL (0-10)
[2024-03-20] MEDS: iohexol 350 mg/mL 500 mL Btl (per mL) IV (14:11)
[2024-03-20 14:27] LABS: Add Urine Microscopic? YES; Bacteria Urine None Seen /hpf; Hyaline Casts Urine 123.71 /lpf; Squamous Epithelial Cell Urine 21-50 /hpf (0-5)
[2024-03-20 14:35] LABS: UA Slide Review UA Slide Review Perf
[2024-03-20 14:36] LABS: Add Urine Culture? No
[2024-03-20 14:41] VITALS: BP 110/65; O2SAT 97
[2024-03-20 14:49] LABS: Amphetamines Screen Urine Positive (Negative); Barbiturates Screen Urine Negative (Negative); Benzodiazepines Screen Urine Positive (Negative); Cocaine Screen Urine Negative (Negative); Opiate Screen Urine Positive (Negative); PCP Screen Urine Negative (Negative); THC Screen Urine Positive (Negative)
[2024-03-20 15:06] VITALS: BP 131/67; PULSE 103; RESP 16; O2SAT 95
[2024-03-20 16:21] VITALS: BP 134/68; PULSE 89; O2SAT 96
== END 2024-03-20 16:23 | disposition home or self-care (01) ==
PROVIDERS: Emergency Medicine; Emergency Provider Physician Assistant
DX: E86.0 Dehydration (principal); N20.0 Calculus of kidney; F15.21 Other stimulant dependence, in remission; Z72.0 Tobacco use
CPT/HCPCS: 36415; 74177; 80053; 80306; 80307; 81001; 83690; 85025; 96360; 96361; 99285; J7030; Q0162

== ENCOUNTER 2024-04-01 20:00 | Inpatient (IN) | payer SELFPAY ==
[2024-04-01 20:02] VITALS: BP 187/72; PULSE 64; RESP 18; TEMP 36.6; O2SAT 99; BMI 23.0
--- NOTE | 2024-04-01 20:08 | W.ED.PSYCHS ---
Documented by User: Kavin Beckman MD 04/01/24 20:19 HPI - Psych General: Chief Complaint: ER Hold Stated Complaint: SI Time Seen by Provider: 04/01/24 20:00 Source: patient and EMS Mode of arrival: EMS Limitations: no limitations History of Present Illness: 33-year-old male who is here with EMS after making suicidal statements he states that he had told his that he did want to kill himself he states he has been suicidal for the last 2 to 3 days patient here is combative and argumentative as well. He denies any worsening improving factors. Associated symptoms: Reports depression and suicidal ideation Related Data Home Medications ?Medication ?Instructions ?Recorded ?Confirmed No Known Home Medications 04/02/24 04/02/24 Allergies Allergy/AdvReac Type Severity Reaction Status Date / Time codeine Allergy ALGY-Swell Verified 04/01/24 20:29 Lip/Tongue/Throat Review of Systems Const: Denies: fever(s), chills, body aches or change in appetite ENMT: Denies: throat pain or dental pain Card: Denies: chest pain Resp: Denies: dyspnea GI: Denies: abdominal pain, nausea, vomiting or diarrhea Musc: Denies: neck pain or back pain Skin/Breast: Denies: rash Neuro: Denies: headache(s) Psych: Reports: depression and suicidal ideation [facility] ED PFSH: Medical History Cannabis dependence with current use daily use Cigarette nicotine dependence without complication Methamphetamine use disorder, severe, in sustained remission, dependence Last use reported as 2021 Alcohol dependence with alcohol-induced mood disorder Last alcohol use 07/10/23 Psychiatric care Encounter for follow-up care involving plastic surgery of upper extremity (Unknown) Left arm Surgical History History of carpal tunnel surgery Left hand. Social History Smoking and tobacco/nicotine status: current every day tobacco/nicotine user Physical Exam Const: COMMON NORMALS: no acute distress, patient oriented x3 and healthy appearing HENMT: COMMON NORMALS: normocephalic and atraumatic HEAD & SCALP: normocephalic and atraumatic Eye: COMMON NORMALS: conjunctivae normal CONJUNCTIVA: Yes conjunctivae normal Neck/C-Spine: COMMON NORMALS: full ROM and supple Chest: COMMONS NORMALS: normal inspection of the chest Resp: COMMON NORMALS: normal respiratory effort Cardio: COMMON NORMALS: regular rate, regular rhythm and No murmurs present (Cardio) RATE: regular rate RHYTHM: regular rhythm Extremity: COMMON NORMALS: normal to inspection and full ROM Neuro: COMMON NORMALS: patient oriented x3, moves all extremities and no focal motor deficits Psych: COMMON NORMALS: mental status grossly normal, Normal thought process present and cooperative MOOD & AFFECT: Yes depressed mood THOUGHT PROCESS: Normal thought process present THOUGHT CONTENT: Yes Suicidality present Skin: COMMON NORMALS: no rashes or lesions noted and no wounds GENERAL SKIN EXAM: no rashes or lesions noted Face to Face: Restrn/Seclusion Events leading up to initiation: Verbalizing threat to self or others Evaluation of patient's immediate situation: Alert and oriented Patient reaction since intervention applied: Continued attempts/displays harmful behavior Recent labs reviewed: Yes Review of medications: Yes Course Reevaluation(s): Reevaluation #1: Patient is refusing to change out into scrubs did try to verbally de-escalate he was threatening me and security guards had to physically restrain him and chemically restrain him at this time Time: 20:17 Vital Signs: Vital signs: Vital Signs Temperature 97.8 F 04/01/24 20:02 Pulse Rate 65 04/02/24 04:00 Respiratory Rate 18 04/02/24 04:00 Blood Pressure 100/50 04/02/24 04:00 Pulse Oximetry 94 04/02/24 04:00 Oxygen Delivery Me thod Room Air 04/02/24 02:00 MDM - Psych Lab Data 04/01/24 20:22 04/01/24 20:22 Radiology Impressions Chest X-Ray 04/01/24 21:29 IMPRESSION: No acute findings. Laboratory Results WBC 8.39 10^3/uL (3.29-11.43) 04/01/24 20:22 RBC 5.08 10^6/uL (3.85-5.65) 04/01/24 20:22 Hgb 16.10 g/dL (11.27-16.99) 04/01/24 20:22 Hct 49.1 % (37-53) 04/01/24 20:22 MCV 96.7 fl (82-101) 04/01/24 20:22 MCH 31.7 pg (27-33) 04/01/24 20: MCHC 32.8 g/dL (30-55) 04/01/24 20:22 RDW 13.8 % (12.1-15.1) 04/01/24 20:22 Plt Count 260 10^3/cmm (157-399) 04/01/24 20:22 MPV 11.0 fL (7.4-10.4) H 04/01/24 20:22 Neut % (Auto) 46.9 % 04/01/24 20: Lymph % (Auto) 42.6 % 04/01/24 20: Young % (Auto) 4.8 % 04/01/24 20: Eos % (Auto) 4.4 % 04/01/24 20:22 Baso % (Auto) 1.1 % 04/01/24 20: Neut # (Auto) 3.94 10^3/uL (1.8-7.7) 04/01/24 20: Lymph # (Auto) 3.6 10^3/uL (0.8-4.8) 04/01/24 20: Young # (Auto) 0.4 10^3/uL (0.2-0.9) 04/01/24 20:22 Eos # (Auto) 0.4 10^3/uL (0.0-0.8) 04/01/24 20: Baso # (Auto) 0.1 10^3/uL (0.0-0.1) 04/01/24 20:22 Nucleated RBC % (auto) 0 % 04/01/24 20: Nucleated RBCs # 0.0 /100WBC 04/01/24 20: Sodium 141 mmol/L (136-145) 04/01/24 20:22 Potassium 3.1 mmol/L (3.5-5.1) L 04/01/24 20:22 Chloride 104 mmol/L (98-107) 04/01/24 20:22 Carbon Dioxide 17 mmol/L (22-29) L 04/01/24 20:22 Anion Gap 23.1 (5-19) H 04/01/24 20:22 BUN 6 mg/dL (6-20) 04/01/24 20:22 Creatinine 0.8 mg/dL (0.7-1.2) 04/01/24 20:22 GFR Calculation 110.0 mL/min (90-130) 04/01/24 20:22 Glucose 128 mg/dL (65-115) H 04/01/24 20:22 Calculated Osmolality 291 mOsm/kg (285-295) 04/01/24 20:22 Calcium 8.8 mg/dL (8.5-10.5) 04/01/24 20:22 Total Bilirubin 0.3 mg/dL (0.15-1.2) 04/01/24 20:22 AST 42 U/L (0-40) H 04/01/24 20:22 ALT 32 U/L (0-41) 04/01/24 20:22 Alkaline Phosphatase 97 U/L (40-130) 04/01/24 20:22 Total Protein 7.6 g/dL (6.6-8.7) 04/01/24 20:22 Albumin 4.4 g/dL (3.5-5.2) 04/01/24 20:22 Globulin 3.2 g/dL (1.3-4.6) 04/01/24 20:22 Salicylates < 0.3 mg/dL (3-10) L 04/01/24 20:22 Urine Opiates Screen Negative ng/mL (Negative) 04/01/24 20:37 Acetaminophen < 5.0 ug/mL (10-30) L 04/01/24 20:22 Ur Barbiturates Screen Negative ng/mL (Negative) 04/01/24 20:37 Ur Phencyclidine Scrn Negative ng/mL (Negative) 04/01/24 20:37 Ur Amphetamines Screen Negative ng/mL (Negative) 04/01/24 20:37 U Benzodiazepines Scrn Negative ng/mL (Negative) 04/01/24 20:37 Urine Cocaine Screen Negative ng/mL (Negative) 04/01/24 20:37 U Marijuana (THC) Screen Positive ng/mL (Negative) H 04/01/24 20:37 Ethyl Alcohol 306 mg/dL (0-10) H* 04/01/24 20:22 Coronavirus (PCR) Negative (Negative) 04/01/24 22:05 Influenza A (PCR) Negative (Negative) 04/01/24 22:05 Influenza Type B (PCR) Negative (Negative) 04/01/24 22:05 RSV (PCR) Negative (Negative) 04/01/24 22:05 Discharge Plan Discharge Patient Disposition: Admitted As Inpatient Admit Provider: Codey Ly Clinical Impression: Suicidal ideation, Alcohol intoxication Condition: Stable Coding Level of Care 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 [employer] Documented by User: Belkys Sylvester MD 04/02/24 07:43 HPI - Psych General: Chief Complaint: ER Hold Stated Complaint: SI Time Seen by Provider: 04/01/24 20:00 Related Data Home Medications ?Medication ?Instructions ?Recorded ?Confirmed No Known Home Medications 04/02/24 04/02/24 Allergies Allergy/AdvReac Type Severity Reaction Status Date / Time codeine Allergy ALGY-Swell Verified 04/01/24 20:29 Lip/Tongue/Throat PFSH ED PFSH: Medical History Cannabis dependence with current use daily use Cigarette nicotine dependence without complication Methamphetamine use disorder, severe, in sustained remission, dependence Last use reported as 2021 Alcohol dependence with alcohol-induced mood disorder Last alcohol use 07/10/23 Psychiatric care Encounter for follow-up care involving plastic surgery of upper extremity (Unknown) Left arm Surgical History History of carpal tunnel surgery Left hand. Social History Smoking and tobacco/nicotine status: current every day tobacco/nicotine user Course Vital Signs: Vital signs: Vital Signs Temperature 97.8 F 04/01/24 20:02 Pulse Rate 65 04/02/24 04:00 Respiratory Rate 18 04/02/24 04:00 Blood Pressure 100/50 04/02/24 04:00 Pulse Oximetry 94 04/02/24 04:00 Oxygen Delivery Me thod Room Air 04/02/24 02:00 MDM - Psych Medical Decision Making Patient care transitioned me at shift change. Reports of alcohol intoxication and suicidal thoughts and actions. Combativeness. He is now much more sober. I spoke Dr. Ly who agrees to admission to the Neuropsych Unit. Lab Data 04/01/24 20:22 04/01/24 20:22 Radiology Impressions Chest X-Ray 04/01/24 21:29 IMPRESSION: No acute findings. Laboratory Results WBC 8.39 10^3/uL (3.29-11.43) 04/01/24 20:22 RBC 5.08 10^6/uL (3.85-5.65) 04/01/24 20:22 Hgb 16.10 g/dL (11.27-16.99) 04/01/24 20:22 Hct 49.1 % (37-53) 04/01/24 20:22 MCV 96.7 fl (82-101) 04/01/24 20:22 MCH 31.7 pg (27-33) 04/01/24 20:22 MCHC 32.8 g/dL (30-55) 04/01/24 20:22 RDW 13.8 % (12.1-15.1) 04/01/24 20:22 Plt Count 260 10^3/cmm (157-399) 04/01/24 20:22 MPV 11.0 fL (7.4-10.4) H 04/01/24 20:22 Neut % (Auto) 46.9 % 04/01/24 20:22 Lymph % (Auto) 42.6 % 04/01/24 20:22 Young % (Auto) 4.8 % 04/01/24 20:22 Eos % (Auto) 4.4 % 04/01/24 20:22 Baso % (Auto) 1.1 % 04/01/24 20:22 Neut # (Auto) 3.94 10^3/uL (1.8-7.7) 04/01/24 20:22 Lymph # (Auto) 3.6 10^3/uL (0.8-4.8) 04/01/24 20:22 Young # (Auto) 0.4 10^3/uL (0.2-0.9) 04/01/24 20:22 Eos # (Auto) 0.4 10^3/uL (0.0-0.8) 04/01/24 20:22 Baso # (Auto) 0.1 10^3/uL (0.0-0.1) 04/01/24 20:22 Nucleated RBC % (auto) 0 % 04/01/24 20:22 Nucleated RBCs # 0.0 /100WBC 04/01/24 20:22 Sodium 141 mmol/L (136-145) 04/01/24 20:22 Potassium 3.1 mmol/L (3.5-5.1) L 04/01/24 20:22 Chloride 104 mmol/L (98-107) 04/01/24 20:22 Carbon Dioxide 17 mmol/L (22-29) L 04/01/24 20:22 Anion Gap 23.1 (5-19) H 04/01/24 20:22 BUN 6 mg/dL (6-20) 04/01/24 20:22 Creatinine 0.8 mg/dL (0.7-1.2) 04/01/24 20:22 GFR Calculation 110.0 mL/min (90-130) 04/01/24 20:22 Glucose 128 mg/dL (65-115) H 04/01/24 20:22 Calculated Osmolality 291 mOsm/kg (285-295) 04/01/24 20:22 Calcium 8.8 mg/dL (8.5-10.5) 04/01/24 20:22 Total Bilirubin 0.3 mg/dL (0.15-1.2) 04/01/24 20:22 AST 42 U/L (0-40) H 04/01/24 20:22 ALT 32 U/L (0-41) 04/01/24 20:22 Alkaline Phosphatase 97 U/L (40-130) 04/01/24 20:22 Total Protein 7.6 g/dL (6.6-8.7) 04/01/24 20:22 Albumin 4.4 g/dL (3.5-5.2) 04/01/24 20:22 Globulin 3.2 g/dL (1.3-4.6) 04/01/24 20:22 Salicylates < 0.3 mg/dL (3-10) L 04/01/24 20:22 Urine Opiates Screen Negative ng/mL (Negative) 04/01/24 20:37 Acetaminophen < 5.0 ug/mL (10-30) L 04/01/24 20:22 Ur Barbiturates Screen Negative ng/mL (Negative) 04/01/24 20:37 Ur Phencyclidine Scrn Negative ng/mL (Negative) 04/01/24 20:37 Ur Amphetamines Screen Negative ng/mL (Negative) 04/01/24 20:37 U Benzodiazepines Scrn Negative ng/mL (Negative) 04/01/24 20:37 Urine Cocaine Screen Negative ng/mL (Negative) 04/01/24 20:37 U Marijuana (THC) Screen Positive ng/mL (Negative) H 04/01/24 20:37 Ethyl Alcohol 306 mg/dL (0-10) H* 04/01/24 20:22 Coronavirus (PCR) Negative (Negative) 04/01/24 22:05 Influenza A (PCR) Negative (Negative) 04/01/24 22:05 Influenza Type B (PCR) Negative (Negative) 04/01/24 22:05 RSV (PCR) Negative (Negative) 04/01/24 22:05 No radiology studies performed this visit Discharge Plan Discharge Patient Disposition: Admitted As Inpatient Admit Provider: Codey Ly Clinical Impression: Suicidal ideation, Alcohol intoxication Condition: Stable Coding 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
[2024-04-01] MEDS: ketamine 100 mg/mL Inj 5 mL 250 MG IM (20:17)
--- NOTE | 2024-04-01 20:23 | PC.NURSE ---
96 HH Pt placed on 96 HH by ER physician. Pt came in by EMS with SI statements to significant other, via EMS. Pt intoxicated, slurring words, acting without control. Pt stated I will knock you on your ass if you try to put me into scrubs! When physician stated that he had to comply, pt stood up and made threats to security regarding physically assaulting them. Pt was ultimately place in violent restraint bed by ER staff and security. No injuries obtained. Pt given IM ketamine. Pt placed on monitor with 1:1 sitter at bedside. Right sheet served to pt by this RN.
--- NOTE | 2024-04-01 20:38 | ECG_ITS ---
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 Measurements Intervals [place] Rate: 51 P: 52 MA: 168 QRS: 79 QRSD: 93 T: 64 QT: 433 QTc: 399 Interpretive Statements SINUS BRADYCARDIA EARLY REPOLARIZATION [ST ELEVATION WITH NORMALLY INFLECTED T-WAVE] TALL T-WAVES, SUGGESTS HYPERKALEMIA Compared to ECG 07/10/2023 00:44:03 Sinus rhythm no longer present Electronically Signed On 04-04-2024 22:04:12 GRAPHIC TECHNICIAN by Paul Fuller M.D. [email or web address]
[2024-04-01 21:15] LABS: Basophils # 0.1 10^3/uL (0.0-0.1); Basophils % 1.1 %; Eosinophils # 0.4 10^3/uL (0.0-0.8); Eosinophils % 4.4 %; Hematocrit 49.1 % (37-53); Lymphocytes # 3.6 10^3/uL (0.8-4.8); Lymphocytes % 42.6 %; Mean Corpuscular HGB Conc 32.8 g/dL (30-55); Mean Corpuscular Hemoglobin 31.7 pg (27-33); Mean Corpuscular Volume 96.7 fl (82-101); Monocytes # 0.4 10^3/uL (0.2-0.9); Monocytes % 4.8 %; Neutrophils # 3.94 10^3/uL (1.8-7.7); Neutrophils % 46.9 %; Nucleated Red Blood Cells % 0 %; Platelet Count 260 10^3/cmm (157-399); Red Blood Count 5.08 10^6/uL (3.85-5.65); Red Cell Distribution Width 13.8 % (12.1-15.1); White Blood Count 8.39 10^3/uL (3.29-11.43)
[2024-04-01 21:26] LABS: Alanine Aminotransferase 32 U/L (0-41); Albumin Level 4.4 g/dL (3.5-5.2); Alkaline Phosphatase 97 U/L (40-130); Aspartate Amino Transferase 42 U/L (0-40); Blood Urea Nitrogen 6 mg/dL (6-20); Calcium 8.8 mg/dL (8.5-10.5); Chloride 104 mmol/L (98-107); Globulin 3.2 g/dL (1.3-4.6); Glucose 128 mg/dL (65-115); Osmolality Calculated 291 mOsm/kg (285-295); Potassium 3.1 mmol/L (3.5-5.1); Sodium 141 mmol/L (136-145); Total Bilirubin 0.3 mg/dL (0.15-1.2); Total Protein 7.6 g/dL (6.6-8.7)
--- NOTE | 2024-04-01 21:29 | XRR_ITS ---
PROCEDURE INFORMATION: Exam: XR Chest Exam date and time: 04/01/2024 9:32 PM Age: 33 years old Clinical indication: Screening exam; Other screening; Additional info: Pysch transfer TECHNIQUE: Imaging protocol: Radiologic exam of the chest. Views: 1 view. COMPARISON: CR XR chest 1V [id number] 02/12/2019 10:23 AM FINDINGS: Lungs: No focal consolidation or other acute appearing pulmonary opacity. Pleural spaces: No pleural effusion or pneumothorax noted. Heart/Mediastinum: There is no cardiomegaly. Bones/joints: No acute osseous abnormality. XR/XR chest 1V portable [id number] IMPRESSION: No acute findings.
[2024-04-01 21:30] VITALS: PULSE 58; O2SAT 98
[2024-04-01 21:30] LABS: Acetaminophen < 5.0 ug/mL (10-30); Salicylate < 0.3 mg/dL (3-10)
[2024-04-01 21:41] LABS: Alcohol Level 306 mg/dL (0-10)
[2024-04-01 21:44] LABS: Amphetamines Screen Urine Negative (Negative); Barbiturates Screen Urine Negative (Negative); Benzodiazepines Screen Urine Negative (Negative); Cocaine Screen Urine Negative (Negative); Opiate Screen Urine Negative (Negative); PCP Screen Urine Negative (Negative); THC Screen Urine Positive (Negative)
[2024-04-01 22:07] LABS: Anion Gap 23.1 (5-19); Carbon Dioxide 17 mmol/L (22-29)
[2024-04-01 22:49] LABS: Covid PCR NEGATIVE (Negative); Influenza A NEGATIVE (Negative); Influenza B NEGATIVE (Negative); Respiratory Syncytial Virus Ce NEGATIVE (Negative)
[2024-04-01 23:03] VITALS: BP 140/68; PULSE 52; O2SAT 98
[2024-04-02] VITALS (8 sets, daily range): BP systolic 100–136; BP diastolic 50–89; PULSE 62–84; RESP 16–19; TEMP 36.8–37.1; O2SAT 94–99
--- NOTE | 2024-04-02 07:15 | PC.PHAR ---
Pt has no current med history. Last known rx was Doxycycline Hiclate 100mg cap-bid for 10 days filled 02/27/24 10ds. Previous to that, last medication filled was 10/31/23.
--- NOTE | 2024-04-02 08:28 | PC.NURSE ---
THIS NURSE WAS NOTIFIED PT WAS AWAKE. THIS NURSE OBTAINED VITAL SIGNS ON PT. PT REQUESTING UPDATE AND STATED I JUST KNOW I WOKE UP HERE THIS MORNING. PT UPDATED ON WHAT HAPPENED LAST NIGHT AND PT BEING PLACED ON A 96 HOUR HOLD. PT UPDATED ON NPU BED STATUS. PT VERBALIZED UNDERSTANDING AND DENIED ANY QUESTIONS. PT RESTING COMFORTABLY AT THIS TIME WITH PSA OUTSIDE ROOM.
--- NOTE | 2024-04-02 11:56 | PC.NURSE ---
PT OFFERED LUNCH TRAY. PT REFUSED LUNCH STATING HE IS NOT HUNGRY.
[2024-04-02] MEDS: hyDROXYzine 25 mg Capsule 50 MG PO (13:34)
--- NOTE | 2024-04-02 13:57 | PC.NURSE ---
Admission note Patient was brought in to the ED for suicidal statements to his . Patient was under the influence of alcohol. Patient was given ketamine in the ED for beligerance. This morning after waking up, patient denies any understanding of what happened last night. Patient denies suicidal thought, homicidal thoughts, AVh, and depression. Patient rates anxiety 8/10. Patient reports that he has an alcohol problem, that he has attempted to quit multiple times. Patient used to be on the Vivitrol injection until his medicaid was discontinued. Patient says that he experiences anxiety, agitation, nausea, headache, tremors, and has had seizures some years ago from alcohol withdrawal.
--- NOTE | 2024-04-02 16:18 | W.PM.NPUH&PS ---
Providers/Chief Complaint Admitting Physician: Codey Ly MD Chief Complaint: SI HPI NPU History of Present Illness Jj Buchanan is a 33 year old male who presented to the emergency department with the following report: Chief Complaint: ER Hold Stated Complaint: SI Time Seen by Provider: 04/01/24 20:00 Source: patient and EMS Mode of arrival: EMS Limitations: no limitations History of Present Illness: 33-year-old male who is here with EMS after making suicidal statements he states that he had told his that he did want to kill himself he states he has been suicidal for the last 2 to 3 days patient here is combative and argumentative as well. He denies any worsening improving factors. Associated symptoms: Reports depression and suicidal ideation. He was admitted to the neuropsychiatric unit for definitive treatment of those issues. He is known to [facility] through inpatient and outpatient services with services going back many years. An excerpt of his last inpatient psychiatric discharge summary from June of last year is included below for context and the fact that there have been no substantive changes. He presented with a blood alcohol of 306 and a UDS positive for cannabis. He presented today reporting that things have gone somewhat better after he discharged in June. He reports his drinking had diminished with the Vivitrol injection. However for reasons that were unclear he reports his Medicaid lapsed and he stopped being able to get the injection and so his drinking increased. He reports that he has been working for about a year and is still employed at some [employer] here in [facility]. He reports he is and there have been no changes in his psychosocial situation. He reports that without the injection his use increased but he is unsure as to exactly what occurred that led to this hospitalization he reported will have to ask my . Because he was suggesting that once he gets to a certain level of drunk he is not sure what the things are not better bothersome to his . We discussed initiating the CIWA protocol and assisting him in getting through the detox and then starting the naltrexone again and working with the social work team to get his Medicaid back on track and then allowing him to get the Vivitrol after that happens. Per his 07/13/2023 [facility] inpatient psychiatric discharge summary: Discharge Diagnosis (1) Depression, unspecified: Status: Acute (2) Impulse control disorder, unspecified: Status: Acute (3) Alcohol dependence with alcohol-induced mood disorder: Status: Acute (4) Alcohol withdrawal: Status: Acute Reason for Visit Reason for Visit: SI Brief History: History of Present Illness Jj Buchanan is a 32 year old male who presented to the emergency department with suicidal ideation as he had allegedly attempted to wrap a rope around his neck and hang himself. The patient reports that he does not remember the details of what it happened as he had reported that he had been drinking for several hours. The patient was admitted to the neuropsychiatric unit for further evaluation and treatment. He reports that he drinks on a daily basis for several years with a history of increased tolerance, and history of significant alcohol withdrawal. He also reports that he can drink more than 2 pints of alcohol daily. He reports having problems with anger and states that he had put his hand through a window after he had become upset yesterday. He reports having daily use of marijuana as well and reported that he had previously used methamphetamine although he denies its use and several years. He reports that he has had depression for several months and reports previous trials on antidepressants. He reports feeling hopeless and states that he has low energy and low motivation. He reports that he wakes up not feeling rested. He reports having continued stress at home with his and children and states that he becomes angry very easily. He has reported having problems with managing his temper for several years. He has reported having previous suicide attempts before. Patient's blood alcohol was 350 on admission. Inpatient psychiatric history: Patient reports multiple inpatient hospitalizations but was unable to recall when his last admission was. Outpatient psychiatric history: He had reported previous diagnosis of depression and states that he had previously been on mirtazapine. He had reportedly received treatment at [facility] on an outpatient basis. Drug and alcohol history: He had reported alcohol use beginning in his teenage years. He reports continuous daily drinking and reports a history of alcohol withdrawal symptoms including shakes. He has reported having been in [employer] in 2018 for alcohol abuse. He does report a past history of methamphetamine use and reports daily use of marijuana for several years. Medical history: None Surgical history: Carpal tunnel surgery left hand Allergies: Codeine history: None Legal history: He reports having history of having been in shelter before in the past with his longest period of incarceration being 8 months. He is currently not on parole. He had reported having legal charges for the possession of methamphetamine in the past as well. Family psychiatric history: Alcoholism in biological parents along with history of depression in the mother. Current medications: None Social history: Patient reports daily nicotine use. He reports that he currently lives with his for 10 years. He reports that he has children from a previous relationship who live with their mother. He reports that he was raised by his grandmother. He reported having a traumatic childhood but did not wish to go into detail. He reports that he had struggled in school and dropped out of school in the ninth grade. He reports his parents were not together while he was growing up and he has 1 brother and 4 stepsisters. 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 He had moved to [place] recently after spending the last few years in [place], [place]. Hospital Course The patient had endorsed significant depression and showed evidence of significant alcohol withdrawal and was placed on alcohol withdrawal protocol. He had required Ativan for alcohol related withdrawal for the next 2 days. The patient after 72 hours did not appear to show any signs of alcohol withdrawal. He was motivated to consider a medication to reduce cravings for alcohol and the patient was discharged on Vivitrol IM 380 mg at the date of discharge. Patient was also started on Lexapro to target anxiety and depression without any noted side effects. During the hospitalization, the patient had routine laboratory studies which were within normal limits except for a few outliers. Additionally, there was a general medical evaluation which was also within normal limits and revealed no new acute processes. At the time of discharge, lethality was denied. Mood and anxiety were well managed at the time of discharge. The patient endorsed a plan to avoid all drugs of abuse and follow up with the aftercare recommendations of the treatment team. The patient was evaluated and deemed to be absent credible lethality and had achieved the maximum benefit from an inpatient hospitalization, and so was discharged. Meds NPU Home Medications ?Medication ?Instructions ?Recorded ?Confirmed ?Last Taken ?Type No Known Home Medications 04/02/24 04/02/24 Unknown History Allergies Allergy/AdvReac Type Severity Reaction Status Date / Time codeine Allergy RUPALIGmAllen Verified 04/01/24 20:29 Lip/Tongue/Throat PFSH NPU PFSH: Medical History Cannabis dependence with current use daily use Cigarette nicotine dependence without complication Methamphetamine use disorder, severe, in sustained remission, dependence Last use reported as 2021 Alcohol dependence with alcohol-induced mood disorder Last alcohol use 07/10/23 Psychiatric care Encounter for follow-up care involving plastic surgery of upper extremity (Unknown) Left arm Surgical History History of carpal tunnel surgery Left hand. Social History Smoking and tobacco/nicotine status: current every day tobacco/nicotine user Mental Status Exam MSE Comments: This is a well-nourished well-developed white male in hospital scrubs with poor grooming and limited eye contact. No abnormal movements were appreciated except for moderate psychomotor retardation. He was mostly cooperative with exam in mild to moderate distress. Speech was decreased rate and volume. Mood described as okay given the situation. His affect was congruent but subdued. Thought process was linear and organized. Thought contact: Patient denied suicidal or homicidal ideation, there were no delusions reported or noted, patient denied auditory or visual hallucinations. Attention and concentration appeared intact and memory appeared mostly reliable but none were formally tested. Patient is alert and oriented to person, place time and situation. Insight was poor. Judgment and impulse control appears impaired. Vitals/I&O/Wt Last Vital Signs Temp 98.2 F 04/02/24 13:00 Pulse 80 04/02/24 13:00 Resp 18 04/02/24 13:00 BP 133/89 04/02/24 13:00 Pulse Ox 96 04/02/24 13:00 O2 Del Method Room Air 04/02/24 13:00 Weight last 48 hrs Weight 70.76 kg Data NPU 04/01/24 20:22 04/01/24 20:22 A&P Assessment and plan (1) Depression, unspecified: (2) Impulse control disorder, unspecified: (3) Alcohol dependence with alcohol-induced mood disorder: (4) Alcohol withdrawal: Plan This is a 33-year-old white male with a previous history of alcohol dependence and poor impulse control reporting depression and suicidal ideation. He presents much like his last hospitalization with positive UDS and significant alcohol intoxication needing safe withdrawal and having clear issues with depression, anxiety and suicidal thoughts. 1. Will consider appropriateness of medication both for mood, addiction and withdrawal 2. Encourage individual, group, and milieu therapy. 3. Continue q-15-minute checks for safety. 4. Recommend sober living treatment at the highest level of care to which the patient is willing to commit. 5. Get collateral information. 6. Evaluate against the backdrop of the 96-hour hold. 7. Initiate CIWA protocol. PDMP PDMP Reviewed: Not Reviewed Involuntary Hold Information 96 Hour Hold: 96 Hour Involuntary Admission: Yes 96 Hour Hold Ending Date: 04/05/24 96 Hour Hold Ending Time: 20:00 Attestations NPU Medical Necessity Statement*: Inpatient hospitalization is medically necessary and the clinically appropriate intervention, at this time. We will monitor medications and make changes as indicated. Patient will be in the hospital for over two midnights. Likely length of stay is three to five days. Coding Level of Care Code Acute Code for g Fwd Diagnoses Depression, unspecified F32.A Impulse control disorder, unspecified F63.9 Alcohol dependence with alcohol-induced mood disorder F10.24 Alcohol withdrawal F10.937
[2024-04-03] VITALS (7 sets, daily range): BP systolic 117–144; BP diastolic 68–95; PULSE 55–73; RESP 15–18; TEMP 36.6–37.1; O2SAT 96–100
[2024-04-03] MEDS: folic acid 1 mg Tablet PO (09:01)
[2024-04-03] MEDS: thiamine 100 mg Tablet PO (09:01)
[2024-04-03] MEDS: multivitamin therapeutic Tablet 1 TAB PO (09:01)
[2024-04-03] MEDS: nicotine 2 mg Gum BUCCAL (16:39)
--- NOTE | 2024-04-03 17:20 | P.NPUPN_ITS ---
Subjective NPU 2 Subjective: You presented today reporting that things are going okay. He identified that some of the difficulty had with the Vivitrol as it felt like the medication worked great in the first 2 weeks but then it fell off the rest of the time. We discussed either getting the Vivitrol prescribed every 3 weeks which is likely not possible versus having him augment with oral medication the second 2 weeks which likely could be managed. We discussed ultimately discharging him on the oral medication and him having to wait for his Medicaid to kick in before the injection will be possible. We agreed to start the naltrexone tomorrow after discussion of the risks, benefits and alternatives he understood and agreed to proceed as is documented in this note. Mental Status Exam 2 MSE Comments: This is a well-nourished well-developed white male in hospital scrubs with poor grooming and limited eye contact. No abnormal movements were appreciated except for moderate psychomotor retardation. He was mostly cooperative with exam in mild to moderate distress. Speech was decreased rate and volume. Mood described as okay given the situation. His affect was congruent but subdued. Thought process was linear and organized. Thought contact: Patient denied suicidal or homicidal ideation, there were no delusions reported or noted, patient denied auditory or visual hallucinations. Attention and concentration appeared intact and memory appeared mostly reliable but none were formally tested. Patient is alert and oriented to person, place time and situation. Insight was poor. Judgment and impulse control appears impaired. Vitals/I&O/Wt Last Vital Signs Temp 97.9 F 04/03/24 15:08 Pulse 73 04/03/24 15:08 Resp 16 04/03/24 15:08 BP 126/95 04/03/24 15:08 Pulse Ox 96 04/03/24 15:08 O2 Del Method Room Air 04/03/24 15:08 Data NPU 04/01/24 20:22 04/01/24 20:22 A&P Assessment and plan (1) Depression, unspecified: (2) Impulse control disorder, unspecified: (3) Alcohol dependence with alcohol-induced mood disorder: (4) Alcohol withdrawal: Plan This is a 33-year-old white male with a previous history of alcohol dependence and poor impulse control reporting depression and suicidal ideation. He presents much like his last hospitalization with positive UDS and significant alcohol intoxication needing safe withdrawal and having clear issues with depression, anxiety and suicidal thoughts. 1. Will consider appropriateness of medication both for mood, addiction and withdrawal. Will start naltrexone and ultimately need to give a prescription for the Vivitrol as patient is absent insurance. We discussed him taking the naltrexone and the final 2 weeks of his Vivitrol cycle in the future because he reports the medication was seeming less effective as it would be probably harder to get the medication prescribed as IM every 3 weeks instead of every month. 2. Encourage individual, group, and milieu therapy. 3. Continue q-15-minute checks for safety. 4. Recommend sober living treatment at the highest level of care to which the patient is willing to commit. 5. Get collateral information. 6. Evaluate against the backdrop of the 96-hour hold. 7. Initiate CIWA protocol. PDMP PDMP Reviewed: Not Reviewed Involuntary Hold Information 2 96 Hour Hold: 96 Hour Involuntary Admission: Yes 96 Hour Hold Ending Date: 04/05/24 96 Hour Hold Ending Time: 20:00 Other Hold: Hold End Date: 04/05/24 Attestations NPU 2 Medical Necessity Statement*: Inpatient hospitalization is medically necessary and the clinically appropriate intervention, at this time. We will monitor medications and make changes as indicated. Likely length of stay is 2-4 days. Coding Level of Care Code Acute Code for g Fwd Diagnoses Depression, unspecified F32.A Impulse control disorder, unspecified F63.9 Alcohol dependence with alcohol-induced mood disorder F10.24 Alcohol withdrawal F10.938
[2024-04-03] MEDS: trazodone 50 mg Tablet PO (20:18)
[2024-04-03] MEDS: hyDROXYzine 25 mg Capsule 50 MG PO (20:18)
[2024-04-03] MEDS: nicotine 4 mg lozenge MUCOUS MEM (20:18)
[2024-04-04 04:00] VITALS: BP 113/67; PULSE 59; RESP 17; TEMP 36.8; O2SAT 96
[2024-04-04 07:47] VITALS: BP 113/71; PULSE 57; RESP 16; TEMP 37.2; O2SAT 99
[2024-04-04] MEDS: nicotine 4 mg lozenge MUCOUS MEM ×7 (09:19→22:58)
[2024-04-04] MEDS: folic acid 1 mg Tablet PO (09:19)
[2024-04-04] MEDS: thiamine 100 mg Tablet PO (09:19)
[2024-04-04] MEDS: naltrexone hcl 50 mg Tablet PO (09:19)
[2024-04-04] MEDS: multivitamin therapeutic Tablet 1 TAB PO (09:19)
[2024-04-04 14:32] VITALS: BP 145/101; PULSE 89; RESP 16; TEMP 36.6; O2SAT 98
[2024-04-04 16:00] VITALS: RESP 16
[2024-04-04 17:22] VITALS: BP 145/74; PULSE 74; RESP 16; TEMP 37.1; O2SAT 98
--- NOTE | 2024-04-04 17:37 | P.NPUPN_ITS ---
Subjective NPU 2 Subjective: Patient presented today reporting that things are going well. He reports feeling optimistic about discharge tomorrow. We discussed his concerns about his Medicaid did not being able to be managed here and that he has to go over to the Medicaid office. But he reports being focused on maintaining his sobriety. He denies any side effects to the medication. Mental Status Exam 2 MSE Comments: This is a well-nourished well-developed white male in hospital scrubs with improving grooming and eye contact. Absent dentition no abnormal movements were appreciated except for moderate psychomotor retardation. He was mostly cooperative with exam in mild to moderate distress. Speech was more normal rate and volume. Mood described as better. His affect was congruent but subdued. Thought process was linear and organized. Thought contact: Patient denied suicidal or homicidal ideation, there were no delusions reported or noted, patient denied auditory or visual hallucinations. Attention and concentration appeared intact and memory appeared mostly reliable but none were formally tested. Patient is alert and oriented to person, place time and situation. Insight was poor. Judgment and impulse control appears impaired. Vitals/I&O/Wt Last Vital Signs Temp 98.8 F 04/04/24 17:22 Pulse 74 04/04/24 17:22 Resp 16 04/04/24 17:22 BP 145/74 04/04/24 17:22 Pulse Ox 98 04/04/24 17:22 O2 Del Method Room Air 04/04/24 17:22 Data NPU 04/01/24 20:22 04/01/24 20:22 A&P Assessment and plan (1) Depression, unspecified: (2) Impulse control disorder, unspecified: (3) Alcohol dependence with alcohol-induced mood disorder: (4) Alcohol withdrawal: Plan This is a 33-year-old white male with a previous history of alcohol dependence and poor impulse control reporting depression and suicidal ideation. He presents much like his last hospitalization with positive UDS and significant alcohol intoxication needing safe withdrawal and having clear issues with depression, anxiety and suicidal thoughts. 1. Will consider appropriateness of medication both for mood, addiction and withdrawal. Started naltrexone and ultimately need to give a prescription for the Vivitrol as patient is absent insurance. We discussed him taking the naltrexone and the final 2 weeks of his Vivitrol cycle in the future because he reports the medication was seeming less effective as it would be probably harder to get the medication prescribed as IM every 3 weeks instead of every month. 2. Encourage individual, group, and milieu therapy. 3. Continue q-15-minute checks for safety. 4. Recommend sober living treatment at the highest level of care to which the patient is willing to commit. 5. Get collateral information. 6. Evaluate against the backdrop of the 96-hour hold. 7. Initiate CIWA protocol. PDMP PDMP Reviewed: Not Reviewed Involuntary Hold Information 2 96 Hour Hold: 96 Hour Involuntary Admission: Yes 96 Hour Hold Ending Date: 04/05/24 96 Hour Hold Ending Time: 20:00 Other Hold: Hold End Date: 04/05/24 Attestations NPU 2 Medical Necessity Statement*: Inpatient hospitalization is medically necessary and the clinically appropriate intervention, at this time. We will monitor medications and make changes as indicated. Likely length of stay is 1-2 days. Coding Level of Care Code Acute Code for g Fwd Diagnoses Depression, unspecified F32.A Impulse control disorder, unspecified F63.9 Alcohol dependence with alcohol-induced mood disorder F10.24 Alcohol withdrawal F10.93
[2024-04-04] MEDS: trazodone 50 mg Tablet PO (20:47)
[2024-04-04] MEDS: hyDROXYzine 25 mg Capsule 50 MG PO (20:47)
[2024-04-04 21:55] VITALS: BP 147/82; PULSE 85; RESP 17; TEMP 37.1; O2SAT 98
[2024-04-05] MEDS: nicotine 4 mg lozenge MUCOUS MEM ×6 (00:51→12:04)
[2024-04-05] MEDS: acetaminophen 325 mg Tablet 650 MG PO (02:32)
[2024-04-05 02:33] VITALS: BP 124/81; PULSE 86; RESP 18; TEMP 36.8; O2SAT 96
[2024-04-05] MEDS: multivitamin therapeutic Tablet 1 TAB PO (08:08)
[2024-04-05] MEDS: folic acid 1 mg Tablet PO (08:08)
[2024-04-05] MEDS: naltrexone hcl 50 mg Tablet PO (08:08)
[2024-04-05] MEDS: thiamine 100 mg Tablet PO (08:08)
[2024-04-05 11:30] VITALS: BP 124/81; PULSE 86; RESP 18; TEMP 36.8; O2SAT 96
--- NOTE | 2024-04-05 13:12 | PC.NURSE ---
written discharge instructions discussed and left with pt. 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
== END 2024-04-05 13:33 | disposition home or self-care (01) | DRG 897 ==
LOC: ER 20:16 → ER IP 22:23 → NP 04-02 12:49
PROVIDERS: Emergency Medicine; Admitting Provider Psychiatry & Neurology Psychiatry; Emergency Provider Emergency Medicine; Visit Provider Psychiatry & Neurology Psychiatry
DX: F10.229 Alcohol dependence with intoxication, unspecified (principal); R45.851 Suicidal ideations; F10.239 Alcohol dependence with withdrawal, unspecified; Y90.8 Blood alcohol level of 240 mg/100 ml or more; F10.29 Alcohol dependence with unspecified alcohol-induced disorder; F63.9 Impulse disorder, unspecified; F41.9 Anxiety disorder, unspecified; F12.20 Cannabis dependence, uncomplicated; F15.21 Other stimulant dependence, in remission; F17.210 Nicotine dependence, cigarettes, uncomplicated
CPT/HCPCS: 71045; 80053; 80306; 80307; 85025; 87637; 93005; 96372; 97150; 97165; 99285; J3490

== ENCOUNTER 2024-05-06 13:54 | Emergency (ER) | payer SELFPAY ==
[2024-05-06 14:19] VITALS: BP 133/90; PULSE 105; RESP 18; TEMP 36.4; O2SAT 98; BMI 23.3
--- NOTE | 2024-05-06 16:34 | ED_ITS ---
HPI - Abdominal Pain 2 General: Chief Complaint: Abdominal Pain Stated Complaint: sweats,shaking,stopped drinking Time Seen by Provider: 05/06/24 16:28 Source: patient Mode of arrival: ambulatory Limitations: no limitations History of Present Illness: 33-year-old male states he has been on a n alcohol [place] the last few days he states he drank last yesterday states that he is having some nausea not feeling well when he woke up this morning states he actually feels improved currently he was originally worried about going DTs but states his symptoms are improved he denies any pain denies any fever no tremor at this time Associated Symptoms: Reports nausea; Denies chills, diarrhea, dysuria, fever(s) and vomiting Related Data Previous Rx's ?Medication ?Instructions ?Recorded hydroxyzine pamoate 25 mg capsule 50 mg (2 x 25 mg) PO Q6H PRN 04/05/24 Anxiety 30 days #120 caps naltrexone 50 mg tablet 50 mg PO DAILY 30 days #30 t abs 04/05/24 naltrexone microspheres 380 mg 380 mg IM ONCE 30 days #1 ea 04/05/24 intramuscular suspension,extended release (Vivitrol) thiamine mononitrate (vit B1) 100 100 mg PO DAILY 30 d ays #30 tabs 04/05/24 mg tablet (Vitamin B-1 (mononitrate)) ondansetron 4 mg disintegrating 4 mg PO Q6H PRN nausea and 05/06/24 tablet vomiting #14 tabs Allergies Allergy/AdvReac Type Severity Reaction Status Date / Time codeine Allergy ALGY-Swell Verified 05/06/24 14:25 Lip/Tongue/Throat Review of Systems 2 Const: Denies: fever(s), chills, body aches or change in appetite ENMT: Denies: throat pain or dental pain Card: Denies: chest pain Resp: Denies: dyspnea GI: Reports: abdominal pain and nausea; Denies: vomiting or diarrhea : Denies: dysuria Musc: Denies: neck pain or back pain Skin/Breast: Denies: rash Neuro: Denies: headache(s) PFSH ED 2 PFSH: Medical History Cannabis dependence with current use daily use Cigarette nicotine dependence without complication Methamphetamine use disorder, severe, in sustained remission, dependence Last use reported as 2021 Alcohol dependence with alcohol-induced mood disorder Last alcohol use 07/10/23 Psychiatric care Encounter for follow-up care involving plastic surgery of upper extremity (Unknown) Left arm Surgical History History of carpal tunnel surgery Left hand. Social History Smoking and tobacco/nicotine status: current every day tobacco/nicotine user Physical Exam 2 Const: COMMON NORMALS: no acute distress, patient oriented x3 and healthy appearing HENMT: COMMON NORMALS: normocephalic and atraumatic HEAD & SCALP: n ormocephalic and atraumatic Eye: COMMON NORMALS: conjunctivae normal CONJUNCTIVA: Yes conjunctivae normal Neck/C-Spine: COMMON NORMALS: full ROM and supple Chest: COMMONS NORMALS: normal inspection of the chest Resp: COMMON NORMALS: normal respiratory effort, No retractions, No use of accessory muscles and clear to auscultation bilaterally AUSCULTATION: clear to auscultation bilaterally Cardio: COMMON NORMALS: regular rate, regular rhythm and No murmurs present (Cardio) RATE: regular rate RHYTHM: regular rhythm GI: COMMON NORMALS: Normal to inspection, nondistended, normoactive bowel sounds present, Soft to palpation, non-tender and no masses PALPATION: Yes Soft to palpation Extremity: COMMON NORMALS: normal to inspection and full ROM Neuro: COMMON NORMALS: patient oriented x3, moves all extremities and no focal motor deficits Psych: COMMON NORMALS: mental status grossly normal, Normal thought process present and cooperative THOUGHT PROCESS: Normal thought process present Skin: COMMON NORMALS: no rashes or lesions noted and no wounds GENERAL SKIN EXAM: no rashes or lesions noted Course 2 Vital Signs: Vital signs: Vital Signs Temperature 97.5 F L 05/06/24 14:19 Pulse Rate 105 H 05/06/24 14:19 Respiratory Rate 18 05/06/24 14:19 Blood Pressure 133/90 05/06/24 14:19 Pulse Oximetry 98 05/06/24 14:19 Oxygen Delivery Me thod Room Air 05/06/24 14:19 MDM - Abdominal Pain Medical Decision Making Patient presents here with some nausea feeling he was going withdrawal he is been well-appearing here he is sleeping when I came to reassess and he woke up he has no signs of active withdrawals here blood works normal he stable for discharge follow-up with PCP return if worsening. Medical Records I reviewed the patient's medical records. Lab Data I reviewed the patient's lab results. 05/06/24 18:15 05/06/24 18:15 Labs/Radiology: Laboratory Results WBC 5.27 10^3/uL (3.29-11.43) 05/06/24 18:15 RBC 4.93 10^6/uL (3.85-5.65) 05/06/24 18:15 Hgb 15.80 g/dL (11.27-16.99) 05/06/24 18:15 Hct 46.1 % (37-53) 05/06/24 18:15 MCV 93.5 fl (82-101) 05/06/24 18:15 MCH 32.0 pg (27-33) 05/06/24 18:15 MCHC 34.3 g/dL (30-55) 05/06/24 18:15 RDW 13.6 % (12.1-15.1) 05/06/24 18:15 Plt Count 241 10^3/cmm (157-399) 05/06/24 18:15 MPV 10.5 fL (7.4-10.4) H 05/06/24 18:15 Neut % (Auto) 69.7 % 05/06/24 18:15 Lymph % (Auto) 18.6 % 05/06/24 18:15 [place] % (Auto) 9.5 % 05/06/24 18:15 Eos % (Auto) 1.1 % 05/06/24 18:15 Baso % (Auto) 0.9 % 05/06/24 18:15 Neut # (Auto) 3.67 10^3/uL (1.8-7.7) 05/06/24 18:15 Lymph # (Auto) 1.0 10^3/uL (0.8-4.8) 05/06/24 18:15 [place] # (Auto) 0.5 10^3/uL (0.2-0.9) 05/06/24 18:15 Eos # (Auto) 0.1 10^3/uL (0.0-0.8) 05/06/24 18:15 Baso # (Auto) 0.1 10^3/uL (0.0-0.1) 05/06/24 18:15 Nucleated RBC % (auto) 0 % 05/06/24 18:15 Nucleated RBCs # 0.0 /100WBC 05/06/24 18:15 Sodium 135 mmol/L (136-145) L 05/06/24 18:15 Potassium 3.3 mmol/L (3.5-5.1) L 05/06/24 18:15 Chloride 99 mmol/L (98-107) 05/06/24 18:15 Carbon Dioxide 24 mmol/L (22-29) 05/06/24 18:15 Anion Gap 15.3 (5-19) 05/06/24 18:15 BUN 11 mg/dL (6-20) 05/06/24 18:15 Creatinine 0.7 mg/dL (0.7-1.2) 05/06/24 18:15 GFR Calculation 128.3 mL/min (90-130) 05/06/24 18:15 Glucose 124 mg/dL (65-115) H 05/06/24 18:15 Calculated Osmolality 281 mOsm/kg (285-295) L 05/06/24 18:15 Calcium 9.3 mg/dL (8.5-10.5) 05/06/24 18:15 Magnesium 1.9 mg/dL (1.7-2.3) 05/06/24 18:15 Total Bilirubin 1.0 mg/dL (0.15-1.2) 05/06/24 18:15 AST 69 U/L (0-40) H 05/06/24 18:15 ALT 37 U/L (0-41) 05/06/24 18:15 Alkaline Phosphatase 115 U/L (40-130) 05/06/24 18:15 Total Protein 7.5 g/dL (6.6-8.7) 05/06/24 18:15 Albumin 4.5 g/dL (3.5-5.2) 05/06/24 18:15 Globulin 3.0 g/dL (1.3-4.6) 05/06/24 18:15 Lipase 43 U/L (13-60) 05/06/24 18:15 Ethyl Alcohol < 10 mg/dL (0-10) 05/06/24 18:15 All radiology interpretation(s) finalized by discharge Discharge Plan Discharge Patient Disposition: Home Clinical Impression: Vomiting Condition: Stable Prescriptions: New ondansetron 4 mg tablet,disintegrating 4 mg PO Q6H PRN (Reason: nausea and vomiting) Qty: 14 0RF No Action naltrexone 50 mg Tablet 50 mg PO DAILY 30 Days Qty: 30 1RF hydroxyzine pamoate 25 mg Capsule 50 mg PO Q6H PRN (Reason: Anxiety) 30 Days Qty: 120 1RF thiamine mononitrate (vit B1) [Vitamin B-1 (mononitrate)] 100 mg Tablet 100 mg PO DAILY 30 Days Qty: 30 1RF Vivitrol 380 mg suspension,extended rel recon 380 mg IM ONCE 30 Days Qty: 1 2RF Rx Instructions: May take oral naltrexone for the last 15 days of the month. 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
[2024-05-06] MEDS: thiamine 100 mg/mL 2mL SDV IVP (17:08)
[2024-05-06] MEDS: ondansetron 2 mg/ML SDV 2 mL 4 MG IVP (17:08)
[2024-05-06] MEDS: LORazepam 2 mg/mL INJ 1 mL 1 MG IVP (17:35)
[2024-05-06 18:36] LABS: Basophils # 0.1 10^3/uL (0.0-0.1); Basophils % 0.9 %; Eosinophils # 0.1 10^3/uL (0.0-0.8); Eosinophils % 1.1 %; Hematocrit 46.1 % (37-53); Lymphocytes % 18.6 %; Mean Corpuscular HGB Conc 34.3 g/dL (30-55); Mean Corpuscular Volume 93.5 fl (82-101); Mean Platelet Volume 10.5 fL (7.4-10.4); Monocytes # 0.5 10^3/uL (0.2-0.9); Monocytes % 9.5 %; Neutrophils # 3.67 10^3/uL (1.8-7.7); Neutrophils % 69.7 %; Nucleated Red Blood Cells % 0 %; Platelet Count 241 10^3/cmm (157-399); Red Blood Count 4.93 10^6/uL (3.85-5.65); Red Cell Distribution Width 13.6 % (12.1-15.1); White Blood Count 5.27 10^3/uL (3.29-11.43)
[2024-05-06 18:52] LABS: Alanine Aminotransferase 37 U/L (0-41); Albumin Level 4.5 g/dL (3.5-5.2); Alkaline Phosphatase 115 U/L (40-130); Anion Gap 15.3 (5-19); Aspartate Amino Transferase 69 U/L (0-40); Blood Urea Nitrogen 11 mg/dL (6-20); Calcium 9.3 mg/dL (8.5-10.5); Carbon Dioxide 24 mmol/L (22-29); Chloride 99 mmol/L (98-107); Creatinine Clr Calc Pharmacy 148.0983; Glomerular Filtration Rate 128.3 mL/min (90-130); Glucose 124 mg/dL (65-115); Lipase 43 U/L (13-60); Magnesium 1.9 mg/dL (1.7-2.3); Osmolality Calculated 281 mOsm/kg (285-295); Potassium 3.3 mmol/L (3.5-5.1); Sodium 135 mmol/L (136-145); Total Protein 7.5 g/dL (6.6-8.7)
[2024-05-06 18:55] LABS: Alcohol Level < 10 mg/dL (0-10)
[2024-05-06 19:30] VITALS: BP 129/87; PULSE 97; RESP 16; O2SAT 99
[2024-05-06 19:33] VITALS: BP 129/86; PULSE 97; O2SAT 99
== END 2024-05-06 19:34 | disposition home or self-care (01) ==
PROVIDERS: Emergency Provider Emergency Medicine
DX: R11.0 Nausea (principal); Z72.0 Tobacco use
CPT/HCPCS: 36415; 80053; 80307; 83690; 83735; 85025; 96374; 96375; 99284; J2060; J2405; J3411

== ENCOUNTER 2024-05-20 11:10 | Emergency (ER) | payer SELFPAY ==
[2024-05-20 11:13] VITALS: BP 154/91; PULSE 120; TEMP 36.8; O2SAT 98; BMI 24.0
--- NOTE | 2024-05-20 11:54 | W.ED.BACK ---
HPI - Back Pain/Injury General: Chief Complaint: Back Pain/Injury Stated Complaint: Back pain from work Time Seen by Provider: 05/20/24 11:52 Source: patient Mode of arrival: wheelchair Limitations: no limitations History of Present Illness: Patient is a 33-year-old male presents to ED today with a complaint of lower back pain. 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 He feels like pain radiates down into his bilateral lower extremities. He reports intermittent minor lower back discomforts but no chronic back pain or known previous injuries. He is not having any abdominal pain. He arrives to the ED visibly uncomfortable. Patient feels like he has paresthesias to his bilateral thighs. MD elicited complaint: back pain Onset (ago): hour(s) Timing: constant Severity: severe Similar Symptoms Previously: No Quality: spasming Location: lumbar spine Radiation: left leg below the knee and right leg below the knee Exacerbating factors: movement Relieving factors: none Context: turning/twisting and bending Associated symptoms: Reports no associated symptoms; Deny abdominal pain, dysuria, fever(s) or hematuria Related Data Home Medications ?Medication ?Instructions ?Recorded ?Confirmed acetaminophen 325 mg tablet 650 mg PO QID PRN Fever Or Pain 05/20/24 05/20/24 (Tylenol) ibuprofen 200 mg tablet (Advil) 800 mg PO Q6H PRN Fever Or Pain 05/20/24 05/20/24 Previous Rx's ?Medication ?Instructions ?Recorded hydroxyzine pamoate 25 mg capsule 50 mg (2 x 25 mg) PO Q6H PRN 04/05/24 Anxiety 30 days #120 caps naltrexone 50 mg tablet 50 mg PO DAILY 30 days #30 tabs 04/05/24 thiamine mononitrate (vit B1) 100 100 mg PO DAILY 30 days #30 tabs 04/05/24 mg tablet (Vitamin B-1 (mononitrate)) ondansetron 4 mg disintegrating 4 mg PO Q6H PRN nausea and 05/06/24 tablet vomiting #14 tabs cyclobenzaprine 10 mg tablet 10 mg PO TID #20 tabs 05/20/24 prednisone 10 mg tablet 10 mg PO DAILY 7 days #27 tabs 05/20/24 Allergies Allergy/AdvReac Type Severity Reaction Status Date / Time codeine Allergy RUPALIY-[place] Verified 05/20/24 11:18 Lip/Tongue/Throat Review of Systems Const: Denies: fever(s) Card: Denies: chest pain Resp: Denies: dyspnea GI: Denies: abdominal pain : Denies: flank pain, dysuria or hematuria Musc: Reports: back pain; Denies: neck pain, joint swelling or joint redness Skin/Breast: Denies: rash Neuro: Denies: headache(s) PFSH ED PFSH: Medical History Cannabis dependence with current use daily use Cigarette nicotine dependence without complication Methamphetamine use disorder, severe, in sustained remission, dependence Last use reported as 2021 Alcohol dependence with alcohol-induced mood disorder Last alcohol use 07/10/23 Psychiatric care Encounter for follow-up care involving plastic surgery of upper extremity (Unknown) Left arm Surgical History History of carpal tunnel surgery Left hand. Social History Smoking and tobacco/nicotine status: current every day tobacco/nicotine user Physical Exam Const: COMMON NORMALS: no limitations, alert and well nourished GENERAL APPEARANCE: cooperative and in distress (appears uncomfortable secondary to pain) ORIENTATION/CONSCIOUSNESS: Yes awake, Yes oriented to person, Yes oriented to place and Yes oriented to time Chest: COMMONS NORMALS: normal inspection of the chest and normal palpation of entire chest wall Resp: COMMON NORMALS: normal respiratory effort and clear to auscultation bilaterally AUSCULTATION: clear to auscultation bilaterally Cardio: COMMON NORMALS: regular rate, regular rhythm and Peripheral pulses 2+ throughout RATE: regular rate RHYTHM: regular rhythm PERIPHERAL PULSES: Peripheral pulses 2+ throughout GI: COMMON NORMALS: Normal to inspection, nondistended, normoactive bowel sounds present, Soft to palpation, non-tender, No hepatosplenomegaly present and no masses INSPECTION: Yes normal to inspection AUSCULTATION: Yes normoactive bowel sounds PALPATION: Yes Soft to palpation, No Tenderness to palpation present (GI), No Guarding due to palpation present (GI), No Rigid due to palpation and Yes No hepatosplenomegaly present : COMMON NORMALS: Yes no CVA tenderness BLADDER/KIDNEY EXAM: Yes no CVA tenderness Back/Pelvis: COMMON NORMALS: no CVA tenderness THORACIC SPINE/UPPER BACK: No thoracic spinal tenderness and No paraspinal muscle tenderness LUMBAR SPINE/LOWER BACK: Yes pain with ROM, Yes lumbar spinal tenderness, Yes paraspinal muscle tenderness, Yes paraspinal muscle spasm and No mass present PELVIS: Yes buttocks normal and No sciatic notch tenderness SACROILIAC JOINTS: Yes SI joints normal SACRUM: no tenderness COCCYX: no tenderness Extremity: COMMON NORMALS: normal to inspection, capillary refill normal, no joint enlargement, no clubbing, cyanosis or edema, no calf tenderness and no pedal edema NARRATIVE EXTREMITY EXAM: distal pulses normal; sensation intact GENERAL: Yes normal exam except as noted Neuro: COMMON NORMALS: moves all extremities, no focal motor deficits and no sensory deficits noted SENSORIUM/ORIENTATION: Yes alert, Yes oriented to person, Yes oriented to place and Yes oriented to time Skin: COMMON NORMALS: no rashes or lesions noted GENERAL SKIN EXAM: no rashes or lesions noted Course Vital Signs: Vital signs: Vital Signs Temperature 98.3 F 05/20/24 11:13 Pulse Rate 120 H 05/20/24 11:13 Blood Pressure 154/91 05/20/24 11:13 Pulse Oximetry 98 05/20/24 11:13 Oxygen Delivery Me thod Room Air 05/20/24 11:13 MDM - Back Pain/Injury Medical Decision Making Patient feeling much better after IV medications here. He was easily ambulatory here in the emergency department without difficulty or assistance. Patient will be allowed discharge. Will place case management referral to get him set up with primary care for further evaluation of symptoms do not improve over the next week. Will place him on steroids and muscle relaxers. He can begin taking [id number] anti-inflammatories. Return to ED precautions discussed. Differential Diagnosis Likely lumbar radiculopathy, sciatica and strain of lumbar region Medical Records I reviewed the patient's medical records. No radiology studies performed this visit Discharge Plan Discharge Patient Disposition: Home Clinical Impression: Acute low back pain Qualifiers: Back pain laterality: midline Sciatica presence: without sciatica Qualified Code(s): M54.50 - Low back pain, unspecified Condition: Stable Prescriptions: New cyclobenzaprine 10 mg tablet 10 mg PO TID Qty: 20 0RF prednisone 10 mg tablet 10 mg PO DAILY 7 Days Qty: 27 0RF Rx Instructions: 6 tabs on days 1-2, 5 tabs on days 3, 4 tabs on day 4, 3 tabs on day 5, 2 tabs on day 6, 1 tab on day 7 No Action acetaminophen [Tylenol] 325 mg Tablet 650 mg PO QID PRN (Reason: Fever Or Pain) ibuprofen [Advil] 200 mg Tablet 800 mg PO Q6H PRN (Reason: Fever Or Pain) naltrexone 50 mg Tablet 50 mg PO DAILY 30 Days Qty: 30 1RF hydroxyzine pamoate 25 mg Capsule 50 mg PO Q6H PRN (Reason: Anxiety) 30 Days Qty: 120 1RF thiamine mononitrate (vit B1) [Vitamin B-1 (mononitrate)] 100 mg Tablet 100 mg PO DAILY 30 Days Qty: 30 1RF ondansetron 4 mg tablet,disintegrating 4 mg PO Q6H PRN (Reason: nausea and vomiting) Qty: 14 0RF Discharge Orders: Discharge ED (Routine); Ordered 05/20/24 Ordered By: Mandi Guerra Patient Instructions: Low Back Strain (ED), Acute Low Back Pain (ED), Back Pain (ED) Activity Restrictions/Additional Instructions: As we discussed, we will place you on steroids and muscle relaxers. You may also begin taking an [id number] anti-inflammatory such as ibuprofen at a dose of 800 mg every 6-8 hours. He may do ice over the next 48 hours and then switch to heat or begin alternating. I will place a case management referral to get you set up with a primary care provider. You may return to the emergency department at anytime for worsening pain, numbness/tingling/loss of sensation to your lower extremities, trouble walking, episodes of urinary or bowel incontinence/retention, or any other concerns you may have. 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
[2024-05-20] MEDS: ketorolac 30 mg/mL INJ IVP (12:12)
[2024-05-20] MEDS: orphenadrine 30 mg/mL Inj 2 mL 60 MG IVP (12:13)
[2024-05-20] MEDS: dexamethasone 10 mg/mL INJ IVP (12:14)
[2024-05-20] MEDS: LORazepam 2 mg/mL INJ 1 mL IVP (12:54)
[2024-05-20 13:41] VITALS: BP 147/91; PULSE 101; O2SAT 98
[2024-05-20 13:50] VITALS: BP 142/86; PULSE 95; O2SAT 98
--- NOTE | 2024-05-22 10:48 | PC.SOCIAL ---
PCP F/u Referral message sent to Family medicine clinic at this time.
== END 2024-05-20 14:04 | disposition home or self-care (01) ==
PROVIDERS: Emergency Provider Physician Assistant
DX: M54.50 Low back pain, unspecified (principal); Z72.0 Tobacco use; F17.210 Nicotine dependence, cigarettes, uncomplicated
CPT/HCPCS: 96374; 96375; 99284; J1100; J1885; J2060; J2360

== ENCOUNTER 2024-08-11 14:32 | Inpatient (IN) | payer SELFPAY ==
[2024-08-11 14:46] VITALS: BP 161/116; PULSE 108; TEMP 36.8; O2SAT 96
[2024-08-11 14:51] VITALS: BP 161/116; PULSE 108; TEMP 36.8; O2SAT 96
[2024-08-11 15:13] LABS: Basophils # 0.1 10^3/uL (0.0-0.1); Basophils % 0.5 %; Eosinophils # 0.1 10^3/uL (0.0-0.8); Eosinophils % 0.4 %; Lymphocytes % 15.7 %; Mean Corpuscular HGB Conc 34.2 g/dL (30-55); Mean Corpuscular Hemoglobin 31.6 pg (27-33); Mean Corpuscular Volume 92.5 fl (82-101); Monocytes # 1.1 10^3/uL (0.2-0.9); Monocytes % 8.2 %; Neutrophils # 9.75 10^3/uL (1.8-7.7); Neutrophils % 74.9 %; Nucleated Red Blood Cells % 0 %; Platelet Count 273 10^3/cmm (157-399); Red Blood Count 4.65 10^6/uL (3.85-5.65); White Blood Count 13.02 10^3/uL (3.29-11.43)
[2024-08-11 15:40] LABS: Alanine Aminotransferase 39 U/L (0-41); Albumin Level 4.7 g/dL (3.5-5.2); Alkaline Phosphatase 115 U/L (40-130); Anion Gap 23.1 (5-19); Aspartate Amino Transferase 37 U/L (0-40); Blood Urea Nitrogen 21 mg/dL (6-20); Calcium 10.1 mg/dL (8.5-10.5); Carbon Dioxide 16 mmol/L (22-29); Chloride 95 mmol/L (98-107); Globulin 3.5 g/dL (1.3-4.6); Glomerular Filtration Rate 68.9 mL/min (90-130); Glucose 85 mg/dL (65-115); Osmolality Calculated 272 mOsm/kg (285-295); Potassium 4.1 mmol/L (3.5-5.1); Sodium 130 mmol/L (136-145); Thyroid Stimulating Hormone 2.06 uIU/mL (0.27-4.20); Total Bilirubin 0.7 mg/dL (0.15-1.2); Total Protein 8.2 g/dL (6.6-8.7)
--- NOTE | 2024-08-11 15:40 | PC.NURSE ---
PT ATTEMPTING TO LEAVE ER. AUTOMATIC DOORS TURNED OFF AND MEDS ORDERED BY DR. HOOPER. VERBAL DEESCALATION ATTEMPTED AND UNSUCCESSFUL. PT GIVEN IM MEDICATIONS WITHOUT RESISTANCE. PT PLACED ON BEDSIDE MONITORING WHILE SLEEPING.
[2024-08-11 15:41] LABS: Acetaminophen < 5.0 ug/mL (10-30); Alcohol Level < 10 mg/dL (0-10); Salicylate < 0.3 mg/dL (3-10)
--- NOTE | 2024-08-11 15:47 | PC.PHAR ---
I asked Patient if he has been taking any medications he shook his head no , then no other contact. I phoned [facility] and they verified , Patient hasn't picked up anything since 05/20/24 .
[2024-08-11] MEDS: LORazepam 1 MG/0.5 ML injection 2 MG IM (15:53)
[2024-08-11] MEDS: haloperidol inj 5 mg/mL INJ 1 mL IM (15:54)
[2024-08-11] MEDS: diphenhydrAMINE 50 mg/mL SDV 1mL IM (15:54)
--- NOTE | 2024-08-11 16:38 | PC.NURSE ---
This nurse attempted to read 96 hour hold rights. Emily from security present. Patient is very drowsy and appears to be sleeping at this time. Patient would not wake up for this nurse or Emily from security. Copy of rights were given to patient.
[2024-08-11 17:23] VITALS: PULSE 77; O2SAT 97
--- NOTE | 2024-08-11 19:49 | W.ED.PSYCHS ---
HPI - Psych General: Chief Complaint: Psychiatric Symptoms Stated Complaint: rt side deafness Time Seen by Provider: 08/11/24 14:40 History of Present Illness: This patient is a 33-year-old white male who walked into the emergency department and was asked upfront if he was suicidal and evidently he did say yes. When the patient got back to the room he would not communicate with any of us. He appeared to be quite agitated/anxious. I asked him if he was suicidal he did not his head yes. Also asked him if he wants medication to help calm him down and he nodded his head yes but he would not speak. He did get up a couple of times and tried to run down the hallway and leave through the front doors but was stopped by nursing staff and security. He does have a history of depression and alcoholism. Related Data Home Medications ?Medication ?Instructions ?Recorded ?Confirmed acetaminophen 325 mg tablet 650 mg PO QID PRN Fever Or Pain 05/20/24 08/11/24 (Tylenol) ibuprofen 200 mg tablet (Advil) 800 mg PO Q6H PRN Fever Or Pain 05/20/24 08/11/24 Allergies Allergy/AdvReac Type Severity Reaction Status Date / Time codeine Allergy ALGY-Swell Verified 05/20/24 11:18 Lip/Tongue/Throat Review of Systems General: Reports: ROS unobtainable due to mental status [facility] ED PFSH: Medical History Cannabis dependence with current use daily use Cigarette nicotine dependence without complication Methamphetamine use disorder, severe, in sustained remission, dependence Last use reported as 2021 Alcohol dependence with alcohol-induced mood disorder Last alcohol use 07/10/23 Psychiatric care Encounter for follow-up care involving plastic surgery of upper extremity (Unknown) Left arm Surgical History History of carpal tunnel surgery Left hand. Social History Smoking and tobacco/nicotine status: current every day tobacco/nicotine user Physical Exam HENMT: COMMON NORMALS: normocephalic, atraumatic, Normal nasal mucous membranes and turbinates present, moist oral mucous membranes and oropharynx normal HEAD & SCALP: normal to inspection, normocephalic and atraumatic FACE & SINUS: normal facial exam NOSE: Normal nasal mucous membranes and turbinates present Eye: COMMON NORMALS: Equal, round and reactive pupils present, EOMs intact bilaterally and conjunctivae normal GENERAL EYE: appearance normal, both eyes and all related structures CONJUNCTIVA: Yes conjunctivae normal PUPIL: Yes Equal, round and reactive pupils present Neck/C-Spine: COMMON NORMALS: supple and no JVD Chest: COMMONS NORMALS: normal inspection of the chest Resp: COMMON NORMALS: normal respiratory effort and clear to auscultation bilaterally AUSCULTATION: clear to auscultation bilaterally Cardio: COMMON NORMALS: no JVD, regular rate, regular rhythm, No gallops present (Cardio), No murmurs present (Cardio) and No rub (Cardio) RATE: regular rate RHYTHM: regular rhythm GI: COMMON NORMALS: Normal to inspection, nondistended, normoactive bowel sounds present, Soft to palpation and non-tender AUSCULTATION: Yes normoactive bowel sounds PALPATION: Yes Soft to palpation : COMMON NORMALS: Yes no CVA tenderness BLADDER/KIDNEY EXAM: Yes no CVA tenderness Back/Pelvis: COMMON NORMALS: no CVA tenderness and thoracic and lumbar spine normal to inspection Extremity: COMMON NORMALS: normal to inspection Neuro: COMMON NORMALS: CN's II-XII intact bilaterally Psych: APPEARANCE: Yes unkempt ATTITUDE: Yes bizarre ACTIVITY/MOTOR BEHAVIOR: Yes fidgeting and Yes hyperactivity SPEECH: Yes Mute speech present MOOD & AFFECT: Yes anxious THOUGHT CONTENT: Yes Suicidality present Skin: COMMON NORMALS: no rashes or lesions noted, turgor normal and no jaundice GENERAL SKIN EXAM: no rashes or lesions noted and turgor normal Course Vital Signs: Vital signs: Vital Signs Temperature 98.2 F 08/11/24 14:51 Pulse Rate 77 08/11/24 17:23 Blood Pressure 161/116 08/11/24 14:51 Pulse Oximetry 97 08/11/24 17:23 MDM - Psych Medical Decision Making Laboratory workup revealed a sodium of 130 bicarb of 16. We did give the patient 1 L bolus of normal saline. His tox screen was negative. Blood alcohol level was less than 10. I discussed the case with Dr. Ly, psychiatrist. Patient will be sent to the inpatient psychiatric unit shortly. He is stable. I did order Haldol, Benadryl and Ativan early on during his ER stay since he was quite agitated and kept trying to run down the hallway. Lab Data 08/11/24 15:08 08/11/24 15:08 Laboratory Results WBC 13.02 10^3/uL (3.29-11.43) H 08/11/24 15:08 RBC 4.65 10^6/uL (3.85-5.65) 08/11/24 15:08 Hgb 14.70 g/dL (11.27-16.99) 08/11/24 15:08 Hct 43.0 % (37-53) 08/11/24 15:08 MCV 92.5 fl (82-101) 08/11/24 15:08 MCH 31.6 pg (27-33) 08/11/24 15:08 MCHC 34.2 g/dL (30-55) 08/11/24 15:08 RDW 13.0 % (12.1-15.1) 08/11/24 15:08 Plt Count 273 10^3/cmm (157-399) 08/11/24 15:08 MPV 10.0 fL (7.4-10.4) 08/11/24 15:08 Neut % (Auto) 74.9 % 08/11/24 15:08 Lymph % (Auto) 15.7 % 08/11/24 15:08 [place] % (Auto) 8.2 % 08/11/24 15:08 Eos % (Auto) 0.4 % 08/11/24 15:08 Baso % (Auto) 0.5 % 08/11/24 15:08 Neut # (Auto) 9.75 10^3/uL (1.8-7.7) H 08/11/24 15:08 Lymph # (Auto) 2.0 10^3/uL (0.8-4.8) 08/11/24 15:08 [place] # (Auto) 1.1 10^3/uL (0.2-0.9) H 08/11/24 15:08 Eos # (Auto) 0.1 10^3/uL (0.0-0.8) 08/11/24 15:08 Baso # (Auto) 0.1 10^3/uL (0.0-0.1) 08/11/24 15:08 Nucleated RBC % (auto) 0 % 08/11/24 15:08 Nucleated RBCs # 0.0 /100WBC 08/11/24 15:08 Sodium 130 mmol/L (136-145) L 08/11/24 15:08 Potassium 4.1 mmol/L (3.5-5.1) 08/11/24 15:08 Chloride 95 mmol/L (98-107) L 08/11/24 15:08 Carbon Dioxide 16 mmol/L (22-29) L 08/11/24 15:08 Anion Gap 23.1 (5-19) H 08/11/24 15:08 BUN 21 mg/dL (6-20) H 08/11/24 15:08 Creatinine 1.2 mg/dL (0.7-1.2) 08/11/24 15:08 GFR Calculation 68.9 mL/min (90-130) L 08/11/24 15:08 Glucose 85 mg/dL (65-115) 08/11/24 15:08 Calculated Osmolality 272 mOsm/kg (285-295) L 08/11/24 15:08 Calcium 10.1 mg/dL (8.5-10.5) 08/11/24 15:08 Total Bilirubin 0.7 mg/dL (0.15-1.2) 08/11/24 15:08 AST 37 U/L (0-40) 08/11/24 15:08 ALT 39 U/L (0-41) 08/11/24 15:08 Alkaline Phosphatase 115 U/L (40-130) 08/11/24 15:08 Total Protein 8.2 g/dL (6.6-8.7) 08/11/24 15:08 Albumin 4.7 g/dL (3.5-5.2) 08/11/24 15:08 Globulin 3.5 g/dL (1.3-4.6) 08/11/24 15:08 TSH 2.06 uIU/mL (0.27-4.20) 08/11/24 15:08 Salicylates < 0.3 mg/dL (3-10) L 08/11/24 15:08 Acetaminophen < 5.0 ug/mL (10-30) L 08/11/24 15:08 Ethyl Alcohol < 10 mg/dL (0-10) 08/11/24 15:08 No radiology studies performed this visit Discharge Plan Discharge Patient Disposition: Admitted As Inpatient Clinical Impression: Suicidal ideation Condition: Stable Coding Level of Care 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
[2024-08-11 20:12] VITALS: BP 123/75; PULSE 70; RESP 18; O2SAT 99
[2024-08-11 21:00] VITALS: BP 123/81; PULSE 94; RESP 17; O2SAT 100
[2024-08-11 21:33] VITALS: BP 123/81; PULSE 94; RESP 17; O2SAT 100
[2024-08-12 06:00] VITALS: BP 125/81; PULSE 93; RESP 17; TEMP 36.8; O2SAT 99
--- NOTE | 2024-08-12 11:13 | P.NPUHP_ITS ---
Providers/Chief Complaint 2 Admitting Physician: Codey Ly MD Chief Complaint: rt side deafness HPI NPU History of Present Illness Jj Buchanan is a 33 year old male Chief Complaint: Psychiatric Symptoms Stated Complaint: rt side deafness Time Seen by Provider: 08/11/24 14:40 History of Present Illness: This patient is a 33-year-old white male who walked into the emergency department and was asked upfront if he was suicidal and evidently he did say yes. When the patient got back to the room he would not communicate with any of us. He appeared to be quite agitated/anxious. I asked him if he was suicidal he did not his head yes. Also asked him if he wants medication to help calm him down and he nodded his head yes but he would not speak. He did get up a couple of times and tried to run down the hallway and leave through the front doors but was stopped by nursing staff and security. He does have a history of depression and alcoholism. He was admitted to the neuropsychiatric unit for definitive treatment of those issues. He is known to [facility] through inpatient and outpatient services with his last inpatient stay being in March of this year and an excerpt of that note is included below for context and the fact that he has been uncooperative with interview. He has been uncooperative as well with UDS, BAL and lab work. We will attempt to get him to collaborate today and advised him that if we cannot get any cooperation given the fact that we know he is able to communicate that we may need to explore therapeutic discharge. We discussed or at least this personal lines underwriter explained and interested in considering medications for addiction like naltrexone or Vivitrol and possible medications for depression and/or anxiety. Per her 04/05/24 [facility] inpatient psychiatric discharge summary: Diagnoses at Discharge Discharge Diagnosis (1) Depression, unspecified: Status: Ruled-out (2) Impulse control disorder, unspecified: Status: Ruled-out (3) Alcohol dependence with alcohol-induced mood disorder: Status: Chronic Permanent problem details: Last alcohol use 07/10/23 (4) Alcohol withdrawal: Status: Resolved Reason for Visit Reason for Visit: SI Brief History: HPI NPU History of Present Illness Jj Buchanan is a 33 year old male who presented to the emergency department with the following report: Chief Complaint: ER Hold Stated Complaint: SI Time Seen by Provider: 04/01/24 20:00 Source: patient and EMS Mode of arrival: EMS Limitations: no limitations History of Present Illness: 33-year-old male who is here with EMS after making suicidal statements he states that he had told his that he did want to kill himself he states he has been suicidal for the last 2 to 3 days patient here is combative and argumentative as well. He denies any worsening improving factors. Associated symptoms: Reports depression and suicidal ideation. He was admitted to the neuropsychiatric unit for definitive treatment of those issues. He is known to [facility] through inpatient and outpatient services with services going back many years. An excerpt of his last inpatient psychiatric discharge summary from June of last year is included below for context and the fact that there have been no substantive changes. He presented with a blood alcohol of 306 and a UDS positive for cannabis. He presented today reporting that things have gone somewhat better after he discharged in June. He reports his drinking had diminished with the Vivitrol injection. However for reasons that were unclear he reports his Medicaid lapsed and he stopped being able to get the injection and so his drinking increased. He reports that he has been working for about a year and is still employed at some [employer] here in [facility] [place]. He reports he is and there have been no changes in his psychosocial situation. He reports that without the injection his use increased but he is unsure as to exactly what occurred that led to this hospitalization he reported will have to ask my . Because he was suggesting that once he gets to a certain level of drunk he is not sure what the things are not better bothersome to his . We discussed initiating the CIWA protocol and assisting him in getting through the detox and then starting the naltrexone again and working with the social work team to get his Medicaid back on track and then allowing him to get the Vivitrol after that happens. Per his 07/13/2023 [facility] inpatient psychiatric discharge summary: Discharge Diagnosis (1) Depression, unspecified: Status: Acute (2) Impulse control disorder, unspecified: Status: Acute (3) Alcohol dependence with alcohol-induced mood disorder: Status: Acute (4) Alcohol withdrawal: Status: Acute Reason for Visit Reason for Visit: SI Brief History: History of Present Illness Jj Buchanan is a 32 year old male who presented to the emergency department with suicidal ideation as he had allegedly attempted to wrap a rope around his neck and hang himself. The patient reports that he does not remember the details of what it happened as he had reported that he had been drinking for several hours. The patient was admitted to the neuropsychiatric unit for further evaluation and treatment. He reports that he drinks on a daily basis for several years with a history of increased tolerance, and history of significant alcohol withdrawal. He also reports that he can drink more than 2 pints of alcohol daily. He reports having problems with anger and states that he had put his hand through a window after he had become upset yesterday. He reports having daily use of marijuana as well and reported that he had previously used methamphetamine although he denies its use and several years. He reports that he has had depression for several months and reports previous trials on antidepressants. He reports feeling hopeless and states that he has low energy and low motivation. He reports that he wakes up not feeling rested. He reports having continued stress at home with his and children and states that he becomes angry very easily. He has reported having problems with managing his temper for several years. He has reported having previous suicide attempts before. Patient's blood alcohol was 350 on admission. Inpatient psychiatric history: Patient reports multiple inpatient hospitalizations but was unable to recall when his last admission was. Outpatient psychiatric history: He had reported previous diagnosis of depression and states that he had previously been on mirtazapine. He had reportedly received treatment at [facility] on an outpatient basis. Drug and alcohol history: He had reported alcohol use beginning in his teenage years. He reports continuous daily drinking and reports a history of alcohol withdrawal symptoms including shakes. He has reported having been in [facility] in 2018 for alcohol abuse. He does report a past history of methamphetamine use and reports daily use of marijuana for several years. Medical history: None Surgical history: Carpal tunnel surgery left hand Allergies: Codeine history: None Legal history: He reports having history of having been in group home before in the past with his longest period of incarceration being 8 months. He is currently not on parole. He had reported having legal charges for the possession of methamphetamine in the past as well. Family psychiatric history: Alcoholism in biological parents along with history of depression in the mother. Current medications: None Social history: Patient reports daily nicotine use. He reports that he currently lives with his for 10 years. He reports that he has children from a previous relationship who live with their mother. He reports that he was raised by his grandmother. He reported having a traumatic childhood but did not wish to go into detail. He reports that he had struggled in school and dropped out of school in the ninth grade. He reports his parents were not together while he was growing up and he has 1 brother and 4 stepsisters. 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 He had moved to [place] recently after spending the last few years in [place], [place]. Hospital Course The patient had endorsed significant depression and showed evidence of significant alcohol withdrawal and was placed on alcohol withdrawal protocol. He had required Ativan for alcohol related withdrawal for the next 2 days. The patient after 72 hours did not appear to show any signs of alcohol withdrawal. He was motivated to consider a medication to reduce cravings for alcohol and the patient was discharged on Vivitrol IM 380 mg at the date of discharge. Patient was also started on Lexapro to target anxiety and depression without any noted side effects. During the hospitalization, the patient had routine laboratory studies which were within normal limits except for a few outliers. Additionally, there was a general medical evaluation which was also within normal limits and revealed no new acute processes. At the time of discharge, lethality was denied. Mood and anxiety were well managed at the time of discharge. The patient endorsed a plan to avoid all drugs of abuse and follow up with the aftercare recommendations of the treatment team. The patient was evaluated and deemed to be absent credible lethality and had achieved the maximum benefit from an inpatient hospitalization, and so was discharged. Hospital Course He acclimated to the individual, group and milieu therapies provided. He presented with concerns about active addiction and had been off of his medications especially the naltrexone/Vivitrol for some time. He reported that the medications were very helpful but that they seem to lose effectiveness. We discussed the plan of restarting the naltrexone and getting him on Vivitrol once his Medicaid was active again. We also discussed him having the naltrexone pills to take at the end of the month to augment the injection. He was able to work with the social work team to identify sober living resources for treatment. He struggled with some level of ambivalence about truly addressing his situation so that this is not a pattern that is marked primarily by relapse. He had significant improvement and was able to contract for safety outside of the hospital prior to discharge. During the hospitalization, patient had routine laboratory studies which were within normal limits except for few outliers. Additionally there was a general medical evaluation which was also within normal limits and revealed no new acute processes. At the time of discharge, he denied psychosis or lethality. Mood and anxiety were well managed. Patient endorsed a plan to avoid all drugs of abuse and follow-up with the aftercare recommendations of the treatment team. Patient was evaluated and deemed to be absent credible lethality, and had achieved the maximum benefit from an inpatient hospitalization, so was discharged. Meds NPU Home Medications ?Medication ?Instructions ?Recorded ?Confirmed ?Last Taken ?Type acetaminophen 325 mg tablet 650 mg PO QID PRN Fever Or Pain 05/20/24 08/11/24 05/20/24 09:30 History (Tylenol) ibuprofen 200 mg tablet (Advil) 800 mg PO Q6H PRN Feve r Or Pain 05/20/24 08/11/24 05/20/24 09:30 History Allergies Allergy/AdvReac Type Severity Reaction Status Date / Time codeine Allergy ALGY-Swell Verified 05/20/24 11:18 Lip/Tongue/Throat PFSH NPU 2 PFSH: Medical History Cannabis dependence with current use daily use Cigarette nicotine dependence without complication Methamphetamine use disorder, severe, in sustained remission, dependence Last use reported as 2021 Alcohol dependence with alcohol-induced mood disorder Last alcohol use 07/10/23 Psychiatric care Encounter for follow-up care involving plastic surgery of upper extremity (Unknown) Left arm Surgical History History of carpal tunnel surgery Left hand. Social History Smoking and tobacco/nicotine status: current every day tobacco/nicotine user Mental Status Exam 2 MSE Comments: This is a well-nourished well-developed white male in hospital scrubs with poor grooming and little to no eye contact. No abnormal movements were appreciated except for moderate psychomotor retardation. He was mostly uncooperative with exam in mild to moderate distress. Speech was absent. Mood not described. His affect was subdued. Thought process seem linear. Thought contact: Patient only nodded to questions of suicidal ideation, no signs of aggression towards others. There were no delusions reported or noted, patient did not answer questions about auditory or visual hallucinations. Attention and concentration appeared intact and memory unable to determine, but none were formally tested. Patient is alert and oriented to person. Insight was poor. Judgment and impulse control appear impaired. Vitals/I&O/Wt Last Vital Signs Temp 98.3 F 08/12/24 06:00 Pulse 93 08/12/24 06:00 Resp 17 08/12/24 06:00 BP 125/81 08/12/24 06:00 Pulse Ox 99 08/12/24 06:00 O2 Del Method Room Air 08/12/24 06:00 Data NPU 08/11/24 15:08 08/11/24 15:08 A&P Assessment and plan (1) Depression, unspecified: (2) Impulse control disorder, unspecified: (3) Alcohol dependence with alcohol-induced mood disorder: (4) Alcohol withdrawal: Plan This is a 33-year-old white male with a previous history of alcohol dependence and addiction issues overall and poor impulse control often reporting suicidal thoughts this being his second hospitalization in about 4 months and the third hospitalization since June of last year. He presents at this time being resistant to conversation. 1. Will consider appropriateness of medication both for mood, addiction and withdrawal 2. Encourage individual, group, and milieu therapy. 3. Continue q-15-minute checks for safety. 4. Recommend sober living treatment at the highest level of care to which the patient is willing to commit. 5. Get collateral information. 6. Evaluate against the backdrop of the 96-hour hold. 7. Initiate CIWA protocol. PDMP PDMP Reviewed: Not Reviewed Involuntary Hold Information 2 96 Hour Hold: 96 Hour Involuntary Admission: Yes Other Hold: Hold End Date: 04/05/24 Attestations NPU 2 Medical Necessity Statement*: Inpatient hospitalization is medically necessary and the clinically appropriate intervention, at this time. We will monitor medications and make changes as indicated. Patient will be in the hospital for over two midnights. Likely length of stay is three to five days. Coding Level of Care Code Acute Code for Chg Fwd Diagnoses Depression, unspecified F32.A Impulse control disorder, unspecified F63.9 Alcohol dependence with alcohol-induced mood disorder F10.24 Alcohol withdrawal F10.939
[2024-08-12 14:00] VITALS: BP 138/96; PULSE 66; RESP 17; O2SAT 98
[2024-08-12 20:26] VITALS: BP 113/72; PULSE 84; RESP 18; TEMP 36.9; O2SAT 98
[2024-08-12] MEDS: ibuprofen 600 mg Tablet PO (21:32)
[2024-08-12] MEDS: trazodone 50 mg Tablet PO (21:32)
[2024-08-12] MEDS: nicotine 4 mg lozenge MUCOUS MEM (21:33)
[2024-08-12] MEDS: hyDROXYzine 25 mg Capsule 50 MG PO (21:36)
--- NOTE | 2024-08-13 05:54 | PC.NURSE ---
BEHAVIORAL At approximately 1920 this pt began telling staff that she wanted to leave and started to become agitated. This nurse and security attempted to explain to the pt that the doctor has not released her yet so she is here until she can speak with him in the morning. Pt began punching the nurse station windows and pushing on the foyer door. This nurse and Security entered the hallway and continued to try and verbally deescalate the pt but had no success. Pt continued to punch the windows and began screaming at staff to let her out. Pt then started to pace up and down the hallway yelling at staff. A code 10 was called at 1925. Pt walked into dayroom with other pts and continued the same behaviors. At this time this nurse and Security went hands on with the pt to keep herself and other pts safe. While holding the pt this nurse yelled for someone to get the restraint bed. gas station supervisor Cindy asked this nurse to pull IM medications for pt. Pt was restrained at 1928 per Security and HS. After this nurse pulled medications, pt was in the restraint bed in the restraint room. Pt began to move around in the bed attempting to get away from the medications. This nurse administered IM Benadryl 5mg into pts left deltoid and Cindy CANTU administered IM Ativan 2mg and Haldol 5mg into pts right deltoid at 1935. Staff informed pt that she would remain in the bed until she could calm down. VS were taken at this time : Temp- 98.6, HR 111, RR- 20, BP- 129/66, ad O2- 96% on RA. Caitlin Nurse Mental Health Director was notified of code [address] Ly was notified at 1945. Once pt was able to contract for safety, pts left leg was released at 1947,followed by her right leg at 1949, right arm at 1952 and pt was officially released from restraints at 1957. Once out of restraints pt immediately went to her room and laid down. Dr. Ly arrived to do 1 hour [id number] shortly after. Pt is now observed resting in bed quietly with eyes closed. Behavioral monitoring continues.
[2024-08-13 06:00] VITALS: BP 123/79; PULSE 75; RESP 18; TEMP 36.6; O2SAT 98
[2024-08-13] MEDS: acetaminophen 325 mg Tablet 650 MG PO (13:16)
[2024-08-13] MEDS: hyDROXYzine 25 mg Capsule 50 MG PO (13:16)
[2024-08-13] MEDS: nicotine 4 mg lozenge MUCOUS MEM ×2 (13:25→18:22)
[2024-08-13 14:00] VITALS: BP 128/79; PULSE 79; RESP 18; TEMP 36.6; O2SAT 99
--- NOTE | 2024-08-13 14:53 | W.PM.NPUPNS ---
Subjective NPU Subjective: Patient presented today reporting that he was doing okay but was very short about the circumstances mostly answering I do not know or reporting being unsure of the circumstances that brought his here. He alluded to the fact that he had relapsed but was very unclear about timeframe, amount and frequency. We discussed the possibility of restarting his medications and he was ambivalent about that part of this process. Mental Status Exam MSE Comments: This is a well-nourished well-developed white male in hospital scrubs with poor grooming and little to no eye contact. No abnormal movements were appreciated except for moderate psychomotor retardation. He was slightly more cooperative with exam in mild to moderate distress. Speech was absent. Mood described as I do not know. His affect was subdued. Thought process seem linear. Thought contact: Patient denied suicidal ideation, no signs of aggression towards others. There were no delusions reported or noted, patient did not answer questions about auditory or visual hallucinations. Attention and concentration appeared intact and memory was unreliable, but none were formally tested. Patient is alert and oriented to person and place. Insight was poor. Judgment and impulse control appear impaired. Vitals/I&O/Wt Last Vital Signs Temp 98 F 08/13/24 06:00 Pulse 75 08/13/24 06:00 Resp 18 08/13/24 06:00 BP 123/79 08/13/24 06:00 Pulse Ox 98 08/13/24 06:00 O2 Del Method Room Air 08/13/24 06:00 Data NPU 08/11/24 15:08 08/11/24 15:08 A&P Assessment and plan (1) Depression, unspecified: (2) Impulse control disorder, unspecified: (3) Alcohol dependence with alcohol-induced mood disorder: (4) Alcohol withdrawal: Plan This is a 33-year-old white male with a previous history of alcohol dependence and addiction issues overall and poor impulse control often reporting suicidal thoughts this being his second hospitalization in about 4 months and the third hospitalization since June of last year. He presents at this time being resistant to conversation. 1. Will consider appropriateness of medication both for mood, addiction and withdrawal 2. Encourage individual, group, and milieu therapy. 3. Continue q-15-minute checks for safety. 4. Recommend sober living treatment at the highest level of care to which the patient is willing to commit. 5. Get collateral information. 6. Evaluate against the backdrop of the 96-hour hold. 7. Initiate CIWA protocol. PDMP PDMP Reviewed: Not Reviewed Involuntary Hold Information Hold Status: Legal Status: 96 Hour Hold Date/Time Hold Expires: 08/19/24@0001 96 Hour Hold: 96 Hour Involuntary Admission: Yes Other Hold: Hold End Date: 04/05/24 Attestations NPU Medical Necessity Statement*: Inpatient hospitalization is medically necessary and the clinically appropriate intervention, at this time. We will monitor medications and make changes as indicated. Likely length of stay is 2-4 days. Coding Level of Care Code Acute Code for Chg Fwd Diagnoses Depression, unspecified F32.A Impulse control disorder, unspecified F63.9 Alcohol dependence with alcohol-induced mood disorder F10.24 Alcohol withdrawal F10.932
[2024-08-13] MEDS: OLANZapine 5 mg ODT PO (18:47)
[2024-08-13 19:44] VITALS: BP 122/80; PULSE 71; RESP 18; TEMP 36.5; O2SAT 100
[2024-08-13] MEDS: trazodone 50 mg Tablet PO (21:03)
[2024-08-14 06:00] VITALS: BP 122/78; PULSE 60; RESP 16; TEMP 36.7; O2SAT 99
[2024-08-14] MEDS: OLANZapine 5 mg ODT PO (09:04)
[2024-08-14] MEDS: nicotine 4 mg lozenge MUCOUS MEM ×3 (09:04→21:14)
[2024-08-14 14:00] VITALS: BP 113/70; PULSE 68; RESP 16; TEMP 36.7; O2SAT 99
--- NOTE | 2024-08-14 18:05 | W.PM.NPUPNS ---
Subjective NPU Subjective: Patient presented today reporting that he was doing okay. He was still somewhat limited in his willingness to converse but was definitely improved versus admission. He was talking about his previous medications but did not remember what they were. Reviewing his chart he had some naltrexone and Vivitrol that have been ordered but nothing for anything else. We discussed the risks, benefits and alternatives of starting naltrexone and considering the injection and he understood and agreed to proceed as is documented in this note. Mental Status Exam MSE Comments: This is a well-nourished well-developed white male in hospital scrubs with poor grooming and little to no eye contact. Absent dentition no abnormal movements were appreciated except for moderate psychomotor retardation. He was more cooperative with exam in mild distress. Speech was more normal rate and volume.. Mood described as okay I guess. His affect was subdued. Thought process seem linear. Thought contact: Patient denied suicidal ideation, no signs of aggression towards others. There were no delusions reported or noted, patient denied auditory or visual hallucinations but was not forthright on whether that may have contributed to the hospitalization. Attention and concentration appeared intact and memory was unreliable, but none were formally tested. Patient is alert and oriented to person and place. Insight was poor. Judgment and impulse control appear impaired. Vitals/I&O/Wt Last Vital Signs Temp 97.9 F 08/14/24 20:09 Pulse 82 08/14/24 20:09 Resp 18 08/14/24 20:09 BP 129/89 08/14/24 20:09 Pulse Ox 99 08/14/24 20:09 O2 Del Method Room Air 08/14/24 20:09 Data NPU 08/11/24 15:08 08/11/24 15:08 A&P Assessment and plan (1) Depression, unspecified: (2) Impulse control disorder, unspecified: (3) Alcohol dependence with alcohol-induced mood disorder: (4) Alcohol withdrawal: Plan This is a 33-year-old white male with a previous history of alcohol dependence and addiction issues overall and poor impulse control often reporting suicidal thoughts this being his second hospitalization in about 4 months and the third hospitalization since June of last year. He presents at this time being resistant to conversation. 1. Will consider appropriateness of medication both for mood, addiction and withdrawal. Discussed possibly starting naltrexone in the morning. 2. Encourage individual, group, and milieu therapy. 3. Continue q-15-minute checks for safety. 4. Recommend sober living treatment at the highest level of care to which the patient is willing to commit. 5. Get collateral information. 6. Evaluate against the backdrop of the 96-hour hold. 7. Initiate CIWA protocol. PDMP PDMP Reviewed: Not Reviewed Involuntary Hold Information Hold Status: Legal Status: 96 Hour Hold Date/Time Hold Expires: 08/19/24@0001 96 Hour Hold: 96 Hour Involuntary Admission: Yes Other Hold: Hold End Date: 04/05/24 Attestations NPU Medical Necessity Statement*: Inpatient hospitalization is medically necessary and the clinically appropriate intervention, at this time. We will monitor medications and make changes as indicated. Likely length of stay is 2-4 days. Coding Level of Care Code Acute Code for Chg Fwd Diagnoses Depression, unspecified F32.A Impulse control disorder, unspecified F63.9 Alcohol dependence with alcohol-induced mood disorder F10.24 Alcohol withdrawal F10.931
[2024-08-14 20:09] VITALS: BP 129/89; PULSE 82; RESP 18; TEMP 36.6; O2SAT 99
[2024-08-14] MEDS: hyDROXYzine 25 mg Capsule 50 MG PO (21:13)
[2024-08-14] MEDS: trazodone 50 mg Tablet PO (21:14)
[2024-08-15 06:00] VITALS: BP 129/74; PULSE 58; RESP 16; TEMP 36.6; O2SAT 100
[2024-08-15] MEDS: nicotine 4 mg lozenge MUCOUS MEM ×3 (09:00→13:47)
[2024-08-15] MEDS: naltrexone hcl 50 mg Tablet PO (09:00)
[2024-08-15] MEDS: OLANZapine 5 mg ODT PO ×2 (09:02→13:47)
[2024-08-15 10:55] VITALS: BP 129/74; PULSE 80; RESP 16; TEMP 36.6; O2SAT 100
[2024-08-15] MEDS: hyDROXYzine 25 mg Capsule 50 MG PO ×2 (11:42→16:50)
[2024-08-15 14:00] VITALS: BP 118/74; PULSE 80; RESP 18; TEMP 36.6; O2SAT 99
[2024-08-15] MEDS: nicotine 2 mg Gum BUCCAL (16:50)
[2024-08-15 18:01] VITALS: BP 118/74; PULSE 80; RESP 18; TEMP 36.6; O2SAT 99
== END 2024-08-15 17:51 | disposition home or self-care (01) | DRG 881 ==
LOC: ER 19:47 → NP 20:32
PROVIDERS: Admitting Provider Psychiatry & Neurology Psychiatry; Emergency Provider Emergency Medicine; Visit Provider Psychiatry & Neurology Psychiatry
DX: F32.A Depression, unspecified (principal); F10.29 Alcohol dependence with unspecified alcohol-induced disorder; F63.9 Impulse disorder, unspecified; Z81.8 Family history of other mental and behavioral disorders; Z81.1 Family history of alcohol abuse and dependence
CPT/HCPCS: 36415; 80053; 80307; 84443; 85025; 96372; 97150; 97165; 99285; J1200; J1630; J2060; J9999

== ENCOUNTER 2024-08-30 18:36 | Emergency (ER) | payer SELFPAY ==
[2024-08-30 18:47] VITALS: BP 161/106; PULSE 105; RESP 16; TEMP 36.8; O2SAT 99; BMI 23.3
== END 2024-08-30 20:39 | disposition left against medical advice (07) ==
PROVIDERS: Emergency Provider Family Medicine
DX: Z53.21 Procedure and treatment not carried out due to patient leaving prior to being seen by health care provider (principal)

== ENCOUNTER 2024-10-14 15:57 | Inpatient (IN) | payer SELFPAY ==
[2024-10-14 16:03] VITALS: BP 129/91; PULSE 111; RESP 22; TEMP 36.7; O2SAT 98; BMI 20.5
--- NOTE | 2024-10-14 16:04 | W.ED.PSYCHS ---
HPI - Psych General: Chief Complaint: Psychiatric Symptoms Stated Complaint: pysch Time Seen by Provider: 10/14/24 16:00 Source: patient and police Mode of arrival: other (police) Limitations: altered mental status History of Present Illness: Patient is a 34-year-old male who presents to ED today via police after they found him walking up and down a dirt road. Patient tells me he was headed to his kids house. He states he has a 12, 15, and 17 yo kids. Patient's history is somewhat difficult to understand. I asked him several times who the children reside with and he is unable to tell me. He does state there is an adult in the home and they are safe. He states he has a but that he is currently homeless. He states she is not homeless. Patient clearly is responding to internal stimuli and appears very paranoid. He is exhibiting psychosis, poor insight and judgment. MD complaint: altered mental status and other (psychosis) Onset (ago): unknown Duration: constant Treatments prior to arrival: none Related Data Home Medications ?Medication ?Instructions ?Recorded ?Confirmed acetaminophen 325 mg tablet 650 mg PO QID PRN Fever Or Pain 05/20/24 10/14/24 (Tylenol) ibuprofen 200 mg tablet (Advil) 800 mg PO Q6H PRN Fever Or Pain 05/20/24 10/14/24 Previous Rx's ?Medication ?Instructions ?Recorded naltrexone 50 mg tablet 50 mg PO DAILY 30 days #30 tabs 08/15/24 trazodone 50 mg tablet 50 mg PO BEDTIME PRN Sleep 30 days 08/15/24 #30 tabs Allergies Allergy/AdvReac Type Severity Reaction Status Date / Time codeine Allergy RUPALIY-Swell Verified 05/20/24 11:18 Lip/Tongue/Throat Review of Systems General: Reports: ROS unobtainable due to medical condition and ROS unobtainable due to mental status [facility] ED PFSH: Medical History Cannabis dependence with current use daily use Cigarette nicotine dependence without complication Methamphetamine use disorder, severe, in sustained remission, dependence Last use reported as 2021 Alcohol dependence with alcohol-induced mood disorder Last alcohol use 07/10/23 Psychiatric care Encounter for follow-up care involving plastic surgery of upper extremity (Unknown) Left arm Surgical History History of carpal tunnel surgery Left hand. Social History Smoking and tobacco/nicotine status: current every day tobacco/nicotine user Physical Exam Const: COMMON NORMALS: alert EXAM LIMITATIONS: altered mental status GENERAL APPEARANCE: in distress (mental distress, holding head and rocking back and forth) HENMT: COMMON NORMALS: normocephalic and atraumatic HEAD & SCALP: normal to inspection, normocephalic and atraumatic FACE & SINUS: normal facial exam Eye: GENERAL EYE: appearance normal, both eyes and all related structures Resp: COMMON NORMALS: normal respiratory effort and clear to auscultation bilaterally AUSCULTATION: clear to auscultation bilaterally Cardio: COMMON NORMALS: regular rhythm RATE: tachycardic RHYTHM: regular rhythm Extremity: GENERAL: Yes normal exam except as noted Neuro: COMMON NORMALS: moves all extremities, no focal motor deficits and no sensory deficits noted SENSORIUM/ORIENTATION: Yes alert Psych: APPEARANCE: Yes disheveled ATTITUDE: Yes paranoid, Yes Withdrawn affect present, Yes evasive and Yes Guarded attititude/behavior present ACTIVITY/MOTOR BEHAVIOR: Yes disorganized behavior SPEECH: Yes minimal ATTENTION/CONCENTRATION: Yes attention grossly impaired and Yes concentration grossly impaired MEMORY/COGNITION: Yes memory grossly impaired and Yes cognition grossly impaired INSIGHT: Limited insight present (Psych) JUDGEMENT: Limited judgement present (Psych) Course Vital Signs: Vital signs: Vital Signs Temperature 96.1 F L 10/15/24 06:00 Pulse Rate 77 10/15/24 06:00 Respiratory Rate 20 H 10/15/24 06:00 Blood Pressure 121/79 10/15/24 06:00 Pulse Oximetry 100 10/15/24 06:00 Oxygen Delivery Me thod Room Air 10/15/24 06:00 MDM - Psych Medical Decision Making Patient was placed on a 96-hour hold due to psychosis. Plan will be for him to be admitted to NPU to Dr. Ly once cleared medically. Medical Records I reviewed the patient's medical records. Lab Data I reviewed the patient's lab results. 10/14/24 16:53 10/14/24 16:53 Laboratory Results WBC 6.52 10^3/uL (3.29-11.43) 10/14/24 16:53 RBC 4.87 10^6/uL (3.85-5.65) 10/14/24 16:53 Hgb 15.10 g/dL (11.27-16.99) 10/14/24 16:53 Hct 44.7 % (37-53) 10/14/24 16:53 MCV 91.8 fl (82-101) 10/14/24 16:53 MCH 31.0 pg (27-33) 10/14/24 16:53 MCHC 33.8 g/dL (30-55) 10/14/24 16:53 RDW 12.8 % (12.1-15.1) 10/14/24 16:53 Plt Count 282 10^3/cmm (157-399) 10/14/24 16:53 MPV 10.1 fL (7.4-10.4) 10/14/24 16:53 Neut % (Auto) 63.2 % 10/14/24 16:53 Lymph % (Auto) 25.3 % 10/14/24 16:53 [place] % (Auto) 6.3 % 10/14/24 16:53 Eos % (Auto) 3.8 % 10/14/24 16:53 Baso % (Auto) 1.1 % 10/14/24 16:53 Neut # (Auto) 4.12 10^3/uL (1.8-7.7) 10/14/24 16:53 Lymph # (Auto) 1.7 10^3/uL (0.8-4.8) 10/14/24 16:53 [place] # (Auto) 0.4 10^3/uL (0.2-0.9) 10/14/24 16:53 Eos # (Auto) 0.3 10^3/uL (0.0-0.8) 10/14/24 16:53 Baso # (Auto) 0.1 10^3/uL (0.0-0.1) 10/14/24 16:53 Nucleated RBC % (auto) 0 % 10/14/24 16:53 Nucleated RBCs # 0.0 /100WBC 10/14/24 16:53 Sodium 137 mmol/L (136-145) 10/14/24 16:53 Potassium 3.6 mmol/L (3.5-5.1) 10/14/24 16:53 Chloride 99 mmol/L (98-107) 10/14/24 16:53 Carbon Dioxide 26 mmol/L (22-29) 10/14/24 16:53 Anion Gap 15.6 (5-19) 10/14/24 16:53 BUN 10 mg/dL (6-20) 10/14/24 16:53 Creatinine 1.0 mg/dL (0.7-1.2) 10/14/24 16:53 GFR Calculation 84.5 mL/min (90-130) L 10/14/24 16:53 Glucose 89 mg/dL (65-115) 10/14/24 16:53 Calculated Osmolality 283 mOsm/kg (285-295) L 10/14/24 16:53 Calcium 9.9 mg/dL (8.5-10.5) 10/14/24 16:53 Total Bilirubin 0.5 mg/dL (0.15-1.2) 10/14/24 16:53 AST 21 U/L (0-40) 10/14/24 16:53 ALT 22 U/L (0-41) 10/14/24 16:53 Alkaline Phosphatase 91 U/L (40-130) 10/14/24 16:53 Creatine Kinase 98 U/L (39-308) 10/14/24 16:53 Total Protein 7.6 g/dL (6.6-8.7) 10/14/24 16:53 Albumin 4.6 g/dL (3.5-5.2) 10/14/24 16:53 Globulin 3.0 g/dL (1.3-4.6) 10/14/24 16:53 Salicylates < 0.3 mg/dL (3-10) L 10/14/24 16:53 Acetaminophen < 5.0 ug/mL (10-30) L 10/14/24 16:53 Ethyl Alcohol < 10 mg/dL (0-10) 10/14/24 16:53 No radiology studies performed this visit Discharge Plan Discharge Patient Disposition: Admitted As Inpatient Admit Provider: Codey Ly Clinical Impression: Acute psychosis, Involuntary commitment Condition: Stable Coding Level of Care Code ED [employer] for [employer]
[2024-10-14 17:05] LABS: Hematocrit 44.7 % (37-53); Hemoglobin 15.10 g/dL (11.27-16.99); Mean Corpuscular HGB Conc 33.8 g/dL (30-55); Mean Corpuscular Hemoglobin 31.0 pg (27-33); Mean Corpuscular Volume 91.8 fl (82-101); Nucleated Red Blood Cells % 0 %; Platelet Count 282 10^3/cmm (157-399); Red Blood Count 4.87 10^6/uL (3.85-5.65); White Blood Count 6.52 10^3/uL (3.29-11.43)
[2024-10-14 17:26] LABS: Alanine Aminotransferase 22 U/L (0-41); Albumin Level 4.6 g/dL (3.5-5.2); Alkaline Phosphatase 91 U/L (40-130); Anion Gap 15.6 (5-19); Aspartate Amino Transferase 21 U/L (0-40); Blood Urea Nitrogen 10 mg/dL (6-20); Calcium 9.9 mg/dL (8.5-10.5); Carbon Dioxide 26 mmol/L (22-29); Chloride 99 mmol/L (98-107); Creatinine Clr Calc Pharmacy 97.7016; Globulin 3.0 g/dL (1.3-4.6); Glucose 89 mg/dL (65-115); Osmolality Calculated 283 mOsm/kg (285-295); Potassium 3.6 mmol/L (3.5-5.1); Sodium 137 mmol/L (136-145); Total Protein 7.6 g/dL (6.6-8.7)
[2024-10-14 17:30] LABS: Acetaminophen < 5.0 ug/mL (10-30); Alcohol Level < 10 mg/dL (0-10); Salicylate < 0.3 mg/dL (3-10)
[2024-10-14 17:48] LABS: Glucose Urine UA Negative (Normal); Nitrate Urine Negative (Negative); Specific Gravity, Urine 1.016 (1.005-1.030)
[2024-10-14 18:05] LABS: PCP Screen Urine Negative (Negative); UA Manual Slide Review YES
[2024-10-14 18:06] LABS: Add Urine Microscopic? YES
--- NOTE | 2024-10-14 18:28 | PC.NURSE ---
96 hr rights reviewed with pt at 1645 with assistance of [facility] juvenile officer Carson Onofre. All education reviewed with pt at this time. Pt verbalized understanding to hold parameters. Pt copy was left with pt. Pt provided a sprite, and sandwich. Pt calming down at this time. 1:1 with pt. No further needs at this time.
[2024-10-14 22:00] VITALS: BP 152/94; PULSE 92; RESP 22; TEMP 36.5; O2SAT 96
[2024-10-15 06:00] VITALS: BP 121/79; PULSE 77; RESP 20; TEMP 35.6; O2SAT 100
--- NOTE | 2024-10-15 07:36 | P.NPUHP_ITS ---
Providers/Chief Complaint 2 Admitting Physician: Codey Ly MD Chief Complaint: pysch [facility] NPU History of Present Illness Jj Buchanan is a 34 year old male who presented to the emergency department with the following Chief Complaint: Psychiatric Symptoms Stated Complaint: bere Time Seen by Provider: 10/14/24 16:00 Source: patient and police Mode of arrival: other (police) Limitations: altered mental status History of Present Illness: Patient is a 34-year-old male who presents to ED today via police after they found him walking up and down a dirt road. Patient tells me he was headed to his kids house. He states he has a 12, 15, and 17 yo kids. Patient's history is somewhat difficult to understand. I asked him several times who the children reside with and he is unable to tell me. He does state there is an adult in the home and they are safe. He states he has a but that he is currently homeless. He states she is not homeless. Patient clearly is responding to internal stimuli and appears very paranoid. He is exhibiting psychosis, poor insight and judgment. MD complaint: altered mental status and other (psychosis) Onset (ago): unknown Duration: constant Treatments prior to arrival: none He was admitted to the neuropsychiatric unit for definitive treatment of those issues. He is known to [facility] psychiatry through inpatient and outpatient services. He presents today with his fourth hospitalization since last June and a third this year. An excerpt from his last discharge summary is included below for context and the fact that there have been no substantive changes. He presents positive for amphetamines and cannabis and acknowledging that he has relapsed and continues to struggle with sobriety. He continues to be resistant to medications in general and had no clear indication of what he was willing to do to get and maintain his sobriety. He identified that 1 consequence of his use was becoming psychotic and some elements of that might remain. He was fairly irritable per staff reports and direct observation. He was not feeling very talkative and we discussed his working with the treatment team to find some kind of treatment paradigm that he could live with and possibly follow-up. We discussed the risks, benefits and alternatives of him considering an antipsychotic as well as inpatient treatment and he understood and agreed to proceed as is documented in this note. Per his 08/15/[address] [facility] inpatient psychiatric discharge summary: Diagnoses at Discharge Discharge Diagnosis 1. Depression, unspecified: Status: Ruled-out 2. Impulse control disorder, unspecified: Status: Ruled-out 3. Alcohol dependence with alcohol-induced mood disorder: Status: Chronic Permanent problem details: Last alcohol use 07/10/23 4. Alcohol withdrawal: Status: Resolved Reason for Visit Reason for Visit: rt side deafness Brief History: Admitting Physicia n: Codey Ly MD Chief Complaint: rt side deafness HPI NPU History of Present Illness Jj Buchanan is a 33 year old male Chief Complaint: Psychiatric Symptoms Stated Complaint: rt side deafness Time Seen by Provider: 08/11/24 14:40 History of Present Illness: This patient is a 33-year-old white male who walked into the emergency department and was asked upfront if he was suicidal and evidently he did say yes. When the patient got back to the room he would not communicate with any of us. He appeared to be quite agitated/anxious. I asked him if he was suicidal he did not his head yes. Also asked him if he wants medication to help calm him down and he nodded his head yes but he would not speak. He did get up a couple of times and tried to run down the hallway and leave through the front doors but was stopped by nursing staff and security. He does have a history of depression and alcoholism. He was admitted to the neuropsychiatric unit for definitive treatment of those issues. He is known to [facility] through inpatient and outpatient services with his last inpatient stay being in March of this year and an excerpt of that note is included below for context and the fact that he has been uncooperative with interview. He has been uncooperative as well with UDS, BAL and lab work. We will attempt to get him to collaborate today and advised him that if we cannot get any cooperation given the fact that we know he is able to communicate that we may need to explore therapeutic discharge. We discussed or at least this underwriter mortgage loan explained and interested in considering medications for addiction like naltrexone or Vivitrol and possible medications for depression and/or anxiety. Per her 04/05/24 [facility] inpatient psychiatric discharge summary: Diagnoses at Discharge Discharge Diagnosis (1) Depression, unspecified: Status: Ruled-out (2) Impulse control disorder, unspecified: Status: Ruled-out (3) Alcohol dependence with alcohol-induced mood disorder: Status: Chronic Permanent problem details: Last alcohol use 07/10/23 (4) Alcohol withdrawal: Status: Resolved Reason for Visit Reason for Visit: SI Brief History: HPI NPU History of Present Illness Jj Buchanan is a 33 year old male who presented to the emergency department with the following report: Chief Complaint: ER Hold Stated Complaint: SI Time Seen by Provider: 04/01/24 20:00 Source: patient and EMS Mode of arrival: EMS Limitations: no limitations History of Present Illness: 33-year-old male who is here with EMS after making suicidal statements he states that he had told his that he did want to kill himself he states he has been suicidal for the last 2 to 3 days patient here is combative and argumentative as well. He denies any worsening improving factors. Associated symptoms: Reports depression and suicidal ideation. He was admitted to the neuropsychiatric unit for definitive treatment of those issues. He is known to [facility] through inpatient and outpatient services with services going back many years. An excerpt of his last inpatient psychiatric discharge summary from June of last year is included below for context and the fact that there have been no substantive changes. He presented with a blood alcohol of 306 and a UDS positive for cannabis. He presented today reporting that things have gone somewhat better after he discharged in June. He reports his drinking had diminished with the Vivitrol injection. However for reasons that were unclear he reports his Medicaid lapsed and he stopped being able to get the injection and so his drinking increased. He reports that he has been working for about a year and is still employed at some [employer] here in [facility]. He reports he is and there have been no changes in his psychosocial situation. He reports that without the injection his use increased but he is unsure as to exactly what occurred that led to this hospitalization he reported will have to ask my . Because he was suggesting that once he gets to a certain level of drunk he is not sure what the things are not better bothersome to his . We discussed initiating the CIWA protocol and assisting him in getting through the detox and then starting the naltrexone again and working with the social work team to get his Medicaid back on track and then allowing him to get the Vivitrol after that happens. Per his 07/13/[address] [facility] inpatient psychiatric discharge summary: Discharge Diagnosis (1) Depression, unspecified: Status: Acute (2) Impulse control disorder, unspecified: Status: Acute (3) Alcohol dependence with alcohol-induced mood disorder: Status: Acute (4) Alcohol withdrawal: Status: Acute Reason for Visit Reason for Visit: SI Brief History: History of Present Illness Jj Buchanan is a 32 year old male who presented to the emergency department with suicidal ideation as he had allegedly attempted to wrap a rope around his neck and hang himself. The patient reports that he does not remember the details of what it happened as he had reported that he had been drinking for several hours. The patient was admitted to the neuropsychiatric unit for further evaluation and treatment. He reports that he drinks on a daily basis for several years with a history of increased tolerance, and history of significant alcohol withdrawal. He also reports that he can drink more than 2 pints of alcohol daily. He reports having problems with anger and states that he had put his hand through a window after he had become upset yesterday. He reports having daily use of marijuana as well and reported that he had previously used methamphetamine although he denies its use and several years. He reports that he has had depression for several months and reports previous trials on antidepressants. He reports feeling hopeless and states that he has low energy and low motivation. He reports that he wakes up not feeling rested. He reports having continued stress at home with his and children and states that he becomes angry very easily. He has reported having problems with managing his temper for several years. He has reported having previous suicide attempts before. Patient's blood alcohol was 350 on admission. Inpatient psychiatric history: Patient reports multiple inpatient hospitalizations but was unable to recall when his last admission was. Outpatient psychiatric history: He had reported previous diagnosis of depression and states that he had previously been on mirtazapine. He had reportedly received treatment at [facility] on an outpatient basis. Drug and alcohol history: He had reported alcohol use beginning in his teenage years. He reports continuous daily drinking and reports a history of alcohol withdrawal symptoms including shakes. He has reported having been in [facility] in 2018 for alcohol abuse. He does report a past history of methamphetamine use and reports daily use of marijuana for several years. Medical history: None Surgical history: Carpal tunnel surgery left hand Allergies: Codeine history: None Legal history: He reports having history of having been in nursing home before in the past with his longest period of incarceration being 8 months. He is currently not on parole. He had reported having legal charges for the possession of methamphetamine in the past as well. Family psychiatric history: Alcoholism in biological parents along with history of depression in the mother. Current medications: None Social history: Patient reports daily nicotine use. He reports that he currently lives with his for 10 years. He reports that he has children from a previous relationship who live with their mother. He reports that he was raised by his grandmother. He reported having a traumatic childhood but did not wish to go into detail. He reports that he had struggled in school and dropped out of school in the ninth grade. He reports his parents were not together while he was growing up and he has 1 brother and 4 stepsisters. 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 He had moved to [place] recently after spending the last few years in [place], [place]. Hospital Course He slowly acclimated to the individual, group and milieu therapies provided. He presented once again with concerns about active addiction and had been off of his medications especially the naltrexone/Vivitrol. He was initially completely uncooperative and never actually took her urine drug screen but eventually admitted to active addiction being at the heart of him being here again. He did not want to start any psychotropic medications except he was open to the resumption of naltrexone to try to get some assistance with his cravings and use. We discussed the plan of restarting the naltrexone and getting him on Vivitrol once his Medicaid was active again. We also discussed him having the naltrexone pills to take at the end of the month to augment the injection. He was able to work with the social work team to identify sober living resources for treatment. He continues to struggle with significant ambivalence about aggressive treatment. He had significant improvement and was able to contract for safety outside of the hospital prior to discharge. During the hospitalization, patient had routine laboratory studies which were within normal limits except for few outliers. Additionally there was a general medical evaluation which was also within normal limits and revealed no new acute processes. At the time of discharge, he denied psychosis or lethality. Mood and anxiety were well managed. Patient endorsed a plan to avoid all drugs of abuse and follow-up with the aftercare recommendations of the treatment team. Patient was evaluated and deemed to be absent credible lethality, and had achieved the maximum benefit from an inpatient hospitalization, so was discharged. Meds NPU Home Medications ?Medication ?Instructions ?Recorded ?Confirmed ?Last Taken ?Type acetaminophen 325 mg tablet 650 mg PO QID PRN Fever Or Pain 05/20/24 10/14/24 05/20/24 09:30 History (Tylenol) ibuprofen 200 mg tablet (Advil) 800 mg PO Q6H PRN Feve r Or Pain 05/20/24 10/14/24 05/20/24 09:30 History naltrexone 50 mg tablet 50 mg PO DAILY 30 days #30 t abs 08/15/24 10/14/24 Unknown Rx trazodone 50 mg tablet 50 mg PO BEDTIME PRN Sleep 3 0 days 08/15/24 10/14/24 Unknown Rx #30 tabs Allergies Allergy/AdvReac Type Severity Reaction Status Date / Time codeine Allergy ALGY-Swell Verified 05/20/24 11:18 Lip/Tongue/Throat PFSH NPU 2 PFSH: Medical History (Updated 10/14/24 @ 17:04 by RONNIE Fiore) Cannabis dependence with current use daily use Cigarette nicotine dependence without complication Methamphetamine use disorder, severe, in sustained remission, dependence Last use reported as 2021 Alcohol dependence with alcohol-induced mood disorder Last alcohol use 07/10/23 Psychiatric care Encounter for follow-up care involving plastic surgery of upper extremity (Unknown) Left arm Surgical History History of carpal tunnel surgery Left hand. Social History Smoking and tobacco/nicotine status: current every day tobacco/nicotine user Mental Status Exam 2 MSE Comments: This is a cachectic white male in hospital scrubs with poor grooming and little to no eye contact. No abnormal movements were appreciated except for moderate psychomotor retardation and moments of psychomotor agitation when asked questions. He was mostly uncooperative with exam in mild to moderate distress. Speech was limited and his response was off and I do not know. Mood not described. His affect was mostly subdued but occasionally agitated. Thought process seem linear. Thought contact: Patient only nodded to questions of suicidal ideation, no signs of aggression towards others. There were no delusions reported or noted, patient did not answer questions about auditory or visual hallucinations but did state that after using he was having some psychosis. Attention and concentration appeared limited and memory was somewhat unreliable, but none were formally tested. Patient is alert and oriented to person and place. Insight was poor. Judgment and impulse control appear impaired. Vitals/I&O/Wt Last Vital Signs Temp 96.1 F L 10/15/24 06:00 Pulse 77 10/15/24 06:00 Resp 20 H 10/15/24 06:00 BP 121/79 10/15/24 06:00 Pulse Ox 100 10/15/24 06:00 O2 Del Method Room Air 10/15/24 06:00 10/14/24 10/15/24 10/15/24 22:59 06:59 14:59 Intake Total 0 / 0 Balance 0 / 0 Weight last 48 hrs Weight 63.049 kg Data NPU 10/14/24 16:53 10/14/24 16:53 A&P Assessment and plan 1. Depression, unspecified: 2. Impulse control disorder, unspecified: 3. Alcohol dependence with alcohol-induced mood disorder: 4. Alcohol withdrawal: Plan: This is a 34-year-old white male with a previous history of alcohol dependence and addiction issues overall and poor impulse control often reporting suicidal thoughts presenting for his this being his third hospitalization in about 6 months and the fourth hospitalization since June of last year. He presents again fairly irritable and resistant to real conversation. He is positive for cannabis and amphetamines. 1. Will consider appropriateness of medication both for mood, addiction and withdrawal. Discussed possibly starting naltrexone in the morning. 2. Encourage individual, group, and milieu therapy. 3. Continue q-15-minute checks for safety. 4. Recommend sober living treatment at the highest level of care to which the patient is willing to commit. 5. Get collateral information. 6. Evaluate against the backdrop of the 96-hour hold. PDMP PDMP Reviewed: Not Reviewed Involuntary Hold Information 2 Hold Status: Legal Status: 96 Hour Hold Date/Time Hold Expires: @1635 96 Hour Hold: 96 Hour Involuntary Admission: Yes Other Hold: Hold End Date: 04/05/24 Attestations NPU 2 Medical Necessity Statement*: Inpatient hospitalization is medically necessary and the clinically appropriate intervention, at this time. We will monitor medications and make changes as indicated. Patient will be in the hospital for over two midnights. Likely length of stay is three to five days. Coding Level of Care Code Acute Code for Chg Fwd Diagnoses Depression, unspecified F32.A Impulse control disorder, unspecified F63.9 Alcohol dependence with alcohol-induced mood disorder F10.24 Alcohol withdrawal F10.932
[2024-10-15 14:00] VITALS: BP 111/75; PULSE 88; RESP 18; TEMP 36.3; O2SAT 96
[2024-10-15 19:19] VITALS: BP 114/67; PULSE 84; RESP 16; TEMP 36.8; O2SAT 99
[2024-10-16 06:00] VITALS: BP 115/63; PULSE 77; RESP 16; TEMP 36.7; O2SAT 99
--- NOTE | 2024-10-16 13:30 | P.NPUPN_ITS ---
Subjective NPU 2 Subjective: Patient presented today reporting that he is doing okay. He continues to be isolative and mostly lying in bed per staff reports and direct observation being consistent with someone crashing from a stimulant. He continues to identify the need for recovery but at this point continues to be fairly lethargic on interview per staff reports and direct observation. He reports being tired and we discussed considering medication and treatment options for after discharge. Mental Status Exam 2 MSE Comments: This is a cachectic white male in hospital scrubs with poor grooming and little to no eye contact. No abnormal movements were appreciated except for moderate psychomotor retardation and moments of psychomotor agitation when asked questions. He was mostly uncooperative with exam in mild to moderate distress. Speech was limited and his response was off and I do not know. Mood not described. His affect was mostly subdued but occasionally agitated. Thought process seem linear. Thought contact: Patient only nodded to questions of suicidal ideation, no signs of aggression towards others. There were no delusions reported or noted, patient did not answer questions about auditory or visual hallucinations but did state that after using he was having some psychosis. Attention and concentration appeared limited and memory was somewhat unreliable, but none were formally tested. Patient is alert and oriented to person and place. Insight was poor. Judgment and impulse control appear impaired. Vitals/I&O/Wt Last Vital Signs Temp 98.0 F 10/16/24 06:00 Pulse 77 10/16/24 06:00 Resp 16 10/16/24 06:00 BP 115/63 10/16/24 06:00 Pulse Ox 99 10/16/24 06:00 O2 Del Method Room Air 10/16/24 06:00 Weight last 48 hrs Weight 63.049 kg Data NPU 10/14/24 16:53 10/14/24 16:53 Micro: Microbiology 10/14/24 17:28 Urine Culture - Preliminary Urine,Clean Catch Microbiology 10/14/24 17:28 Urine,Clean Catch Urine Culture - Preliminary A&P Assessment and plan 1. Depression, unspecified: 2. Impulse control disorder, unspecified: 3. Alcohol dependence with alcohol-induced mood disorder: 4. Alcohol withdrawal: Plan: This is a 34-year-old white male with a previous history of alcohol dependence and addiction issues overall and poor impulse control often reporting suicidal thoughts presenting for his this being his third hospitalization in about 6 months and the fourth hospitalization since June of last year. He presents again fairly irritable and resistant to real conversation. He is positive for cannabis and amphetamines. 1. Will consider appropriateness of medication both for mood, addiction and withdrawal. Discussed possibly starting naltrexone in the morning. 2. Encourage individual, group, and milieu therapy. 3. Continue q-15-minute checks for safety. 4. Recommend sober living treatment at the highest level of care to which the patient is willing to commit. 5. Get collateral information. 6. Evaluate against the backdrop of the 96-hour hold. PDMP PDMP Reviewed: Not Reviewed Involuntary Hold Information 2 Hold Status: Legal Status: 96 Hour Hold Date/Time Hold Expires: 10/18/2024 1635 96 Hour Hold: 96 Hour Involuntary Admission: Yes Other Hold: Hold End Date: 04/05/24 Attestations NPU 2 Medical Necessity Statement*: Inpatient hospitalization is medically necessary and the clinically appropriate intervention, at this time. We will monitor medications and make changes as indicated. Likely length of stay is 3-5 days. Coding Level of Care Code Acute Code for [facility] Fwd Diagnoses Depression, unspecified F32.A Impulse control disorder, unspecified F63.9 Alcohol dependence with alcohol-induced mood disorder F10.24 Alcohol withdrawal F10.939
[2024-10-16 14:00] VITALS: BP 106/67; PULSE 97; RESP 16; TEMP 36.6; O2SAT 100
[2024-10-16 19:44] VITALS: BP 107/66; PULSE 65; RESP 17; TEMP 36.6; O2SAT 100
[2024-10-17 06:00] VITALS: BP 118/74; PULSE 66; RESP 16; TEMP 36.6; O2SAT 99
--- NOTE | 2024-10-17 08:34 | NUR.SHIFT ---
Pt states that he slept off and on last night. He rates his anxiety a 3/10 and depression 0/10. No reports of SI/HI or hallucinations. He denies pain at this time. He is calm and cooperative on assessment.
[2024-10-17 13:58] VITALS: BP 112/76; PULSE 82; RESP 17; TEMP 36.8; O2SAT 99
--- NOTE | 2024-10-17 15:34 | P.NPUPN_ITS ---
Subjective NPU 2 Subjective: Patient presented today reporting that he feeling okay overall. He reports openness to some kind of likely outpatient treatment but is now back tracking away from inpatient treatment reporting that his says that he can return home and so that now he is not focused on doing inpatient services. We discussed that this is what and he still has not figured out how to maintain his sobriety. We discussed how his returning to work is that would get him in trouble with the returning to use to get them in trouble. He agreed that he would take Vivitrol as the injection is insurance covered it but he did not think he had insurance. He agreed to starting the oral naltrexone. Mental Status Exam 2 MSE Comments: This is a cachectic white male in hospital scrubs with poor grooming and little to no eye contact. No abnormal movements were appreciated except for moderate psychomotor retardation and moments of psychomotor agitation when asked questions. He was mostly uncooperative with exam in mild to moderate distress. Speech was limited and his response was off and I do not know. Mood not described. His affect was mostly subdued but occasionally agitated. Thought process seem linear. Thought contact: Patient only nodded to questions of suicidal ideation, no signs of aggression towards others. There were no delusions reported or noted, patient did not answer questions about auditory or visual hallucinations but did state that after using he was having some psychosis. Attention and concentration appeared limited and memory was somewhat unreliable, but none were formally tested. Patient is alert and oriented to person and place. Insight was poor. Judgment and impulse control appear impaired. Vitals/I&O/Wt Last Vital Signs Temp 98.3 F 10/17/24 13:58 Pulse 82 10/17/24 13:58 Resp 17 10/17/24 13:58 BP 112/76 10/17/24 13:58 Pulse Ox 99 10/17/24 13:58 O2 Del Method Room Air 10/17/24 13:58 Data NPU 10/14/24 16:53 10/14/24 16:53 Micro: Microbiology 10/14/24 17:28 Urine Culture - Final Urine,Clean Catch Microbiology 10/14/24 17:28 Urine,Clean Catch Urine Culture - Final A&P Assessment and plan 1. Depression, unspecified: 2. Impulse control disorder, unspecified: 3. Alcohol dependence with alcohol-induced mood disorder: 4. Alcohol withdrawal: Plan: This is a 34-year-old white male with a previous history of alcohol dependence and addiction issues overall and poor impulse control often reporting suicidal thoughts presenting for his this being his third hospitalization in about 6 months and the fourth hospitalization since June of last year. He presents again fairly irritable and resistant to real conversation. He is positive for cannabis and amphetamines. 1. Will consider appropriateness of medication both for mood, addiction and withdrawal. Start naltrexone 50 mg p.o. daily and patient reported he was open to doing the Vivitrol injection if it is covered. 2. Encourage individual, group, and milieu therapy. 3. Continue q-15-minute checks for safety. 4. Recommend sober living treatment at the highest level of care to which the patient is willing to commit. After initially reporting being open to rehab patient has responded as he has in the past reporting that his is willing to take him back and so now he seems to be leaning away from active treatment. 5. Get collateral information. 6. Evaluate against the backdrop of the 96-hour hold. PDMP PDMP Reviewed: Not Reviewed Involuntary Hold Information 2 Hold Status: Legal Status: 96 Hour Hold Date/Time Hold Expires: 10/18/2024 1635 96 Hour Hold: 96 Hour Involuntary Admission: Yes Other Hold: Hold End Date: 04/05/24 Attestations NPU 2 Medical Necessity Statement*: Inpatient hospitalization is medically necessary and the clinically appropriate intervention, at this time. We will monitor medications and make changes as indicated. Likely length of stay is 2-4 days. Coding Level of Care Code Acute Code for [facility] Fwd Diagnoses Depression, unspecified F32.A Impulse control disorder, unspecified F63.9 Alcohol dependence with alcohol-induced mood disorder F10.24 Alcohol withdrawal F10.939
[2024-10-17 19:23] VITALS: BP 118/82; PULSE 98; RESP 17; TEMP 36.9; O2SAT 90
[2024-10-18 06:00] VITALS: BP 122/77; PULSE 74; RESP 17; TEMP 36.7; O2SAT 99
--- NOTE | 2024-10-18 09:07 | NUR.SHIFT ---
Pt states that he slept alright last night. he denies anxiety and depression. No reports of SI/HI or hallucinations. No reports of pain. He is calm and cooperative on assessment. He has stayed very isolated to his room and only comes out for meals and when he needs a drink.
[2024-10-18 14:00] VITALS: BP 135/95; PULSE 79; RESP 18; TEMP 36.6; O2SAT 99
--- NOTE | 2024-10-18 16:14 | W.PM.NPUDCS ---
Diagnoses at Discharge Discharge Diagnosis 1. Depression, unspecified: 2. Impulse control disorder, unspecified: 3. Alcohol dependence with alcohol-induced mood disorder: 4. Alcohol withdrawal: Reason for Visit Reason for Visit: pysch Involuntary Hold Information Hold Status: Legal Status: 96 Hour Hold Date/Time Hold Expires: 10/18/2024 1635 96 Hour Hold: 96 Hour Involuntary Admission: Yes Other Hold: Hold End Date: 04/05/24 Mental Status Exam MSE Comments: This is a cachectic white male in hospital scrubs with poor grooming and little to no eye contact. No abnormal movements were appreciated except for moderate psychomotor retardation and moments of psychomotor agitation when asked questions. He was mostly uncooperative with exam in mild to moderate distress. Speech was limited and his response was off and I do not know. Mood not described. His affect was mostly subdued but occasionally agitated. Thought process seem linear. Thought contact: Patient only nodded to questions of suicidal ideation, no signs of aggression towards others. There were no delusions reported or noted, patient did not answer questions about auditory or visual hallucinations but did state that after using he was having some psychosis. Attention and concentration appeared limited and memory was somewhat unreliable, but none were formally tested. Patient is alert and oriented to person and place. Insight was poor. Judgment and impulse control appear impaired. Discharge Data Studies Completed and Pending: Laboratory Results WBC 6.52 10^3/uL (3.2 9-11.43) 10/14/24 16:53 RBC 4.87 10^6/uL (3.8 5-5.65) 10/14/24 16:53 Hgb 15.10 g/dL (11.27 -16.99) 10/14/24 16:53 Hct 44.7 % (37-53) 10/14/24 16:53 MCV 91.8 fl (82-101) 10/14/24 16:53 MCH 31.0 pg (27-33) 10/14/24 16:53 MCHC 33.8 g/dL (30-55) 10/14/24 16:53 RDW 12.8 % (12.1-15.1 ) 10/14/24 16:53 Plt Count 282 10^3/cmm (157 -399) 10/14/24 16:53 MPV 10.1 fL (7.4-10.4 ) 10/14/24 16:53 Neut % (Auto) 63.2 % 10/14/24 16:53 Lymph % (Auto) 25.3 % 10/14/24 16:53 [place] % (Auto) 6.3 % 10/14/24 16:53 Eos % (Auto) 3.8 % 10/14/24 16:53 Baso % (Auto) 1.1 % 10/14/24 16:53 Neut # (Auto) 4.12 10^3/uL (1.8 -7.7) 10/14/24 16:53 Lymph # (Auto) 1.7 10^3/uL (0.8- 4.8) 10/14/24 16:53 [place] # (Auto) 0.4 10^3/uL (0.2- 0.9) 10/14/24 16:53 Eos # (Auto) 0.3 10^3/uL (0.0- 0.8) 10/14/24 16:53 Baso # (Auto) 0.1 10^3/uL (0.0- 0.1) 10/14/24 16:53 Nucleated RBC % (a uto) 0 % 10/14/24 16:53 Nucleated RBCs # 0.0 /100WBC 10/14/24 16:53 Sodium 137 mmol/L (136-1 45) 10/14/24 16:53 Potassium 3.6 mmol/L (3.5-5 .1) 10/14/24 16:53 Chloride 99 mmol/L (98-107 ) 10/14/24 16:53 Carbon Dioxide 26 mmol/L (22-29) 10/14/24 16:53 Anion Gap 15.6 (5-19) 10/14/24 16:53 BUN 10 mg/dL (6-20) 10/14/24 16:53 Creatinine 1.0 mg/dL (0.7-1. 2) 10/14/24 16:53 GFR Calculation 84.5 mL/min (90-1 30) L 10/14/24 16:53 Glucose 89 mg/dL (65-115) 10/14/24 16:53 Calculated Osmolal ity 283 mOsm/kg (285- 295) L 10/14/24 16:53 Calcium 9.9 mg/dL (8.5-10 .5) 10/14/24 16:53 Total Bilirubin 0.5 mg/dL (0.15-1 .2) 10/14/24 16:53 AST 21 U/L (0-40) 10/14/24 16:53 ALT 22 U/L (0-41) 10/14/24 16:53 Alkaline Phosphata se 91 U/L (40-130) 10/14/24 16:53 Creatine Kinase 98 U/L (39-308) 10/14/24 16:53 Total Protein 7.6 g/dL (6.6-8.7 ) 10/14/24 16:53 Albumin 4.6 g/dL (3.5-5.2 ) 10/14/24 16:53 Globulin 3.0 g/dL (1.3-4.6 ) 10/14/24 16:53 Urine Color Yellow (Yellow) 10/14/24 17:28 Urine Appearance Cloudy (CLEAR) A 10/14/24 17:28 Urine pH 6.5 (5-7) 10/14/24 17:28 Ur Specific Gravit y 1.016 (1.005-1.0 30) 10/14/24 17:28 Urine Protein 1+ (Negative) A 10/14/24 17:28 Urine Glucose (UA) Negative (Normal ) 10/14/24 17: Urine Ketones Trace (Negative) 10/14/24 17: Urine Blood 2+ (Negative) A 10/14/24 17:28 Urine Nitrate Negative (Negati ve) 10/14/24 17:28 Urine Bilirubin Negative (Negati ve) 10/14/24 17:28 Urine Urobilinogen 1.0 mg/dL (Negati ve) 10/14/24 17:28 Ur Leukocyte Jasmyne ase 1+ (Negative) A 10/14/24 17:28 Urine RBC 10-15 /hpf (0-2) H 10/14/24 17:28 Urine WBC 10-15 /hpf (0-5) H 10/14/24 17:28 Ur Squamous Epith Cells None /hpf (0-5) 10/14/24 17:28 Calcium Oxalate Cr ystal 25-40 /hpf H 10/14/24 17:28 Amorphous Sediment Not Reportable 10/14/24 17:28 Urine Bacteria Trace /hpf (NONE) 10/14/24 17:28 Fine Granular Cast s 15-25 /lpf H 10/14/24 17:28 Urine Mucus 1+ /hpf 10/14/24 17:28 Salicylates < 0.3 mg/dL (3-10 ) L 10/14/24 16:53 Urine Opiates Scre en Negative ng/mL (N egative) 10/14/24 17:28 Acetaminophen < 5.0 ug/mL (10-3 0) L 10/14/24 16:53 Ur Barbiturates Sc reen Negative ng/mL (N egative) 10/14/24 17:28 Ur Phencyclidine S crn Negative ng/mL (N egative) 10/14/24 17:28 Ur Amphetamines Sc reen Positive ng/mL (N egative) H 10/14/24 17:28 U Benzodiazepines Scrn Negative ng/mL (N egative) 10/14/24 17:28 Urine Cocaine Scre en Negative ng/mL (N egative) 10/14/24 17:28 U Marijuana (THC) Screen Positive ng/mL (N egative) H 10/14/24 17:28 Ethyl Alcohol < 10 mg/dL (0-10) 10/14/24 16:53 Vitals: Last Vital Signs Temp 98 F 10/18/24 14:00 Pulse 79 10/18/24 14:00 Resp 18 10/18/24 14:00 BP 135/95 10/18/24 14:00 Pulse Ox 99 10/18/24 14:00 O2 Del Method Room Air 10/18/24 06:00 Discharge Plan Discharge Patient Disposition: Home Condition: Stable Prescriptions: No Action acetaminophen [Tylenol] 325 mg Tablet 650 mg PO QID PRN (Reason: Fever Or Pain) ibuprofen [Advil] 200 mg Tablet 800 mg PO Q6H PRN (Reason: Fever Or Pain) trazodone 50 mg Tablet 50 mg PO BEDTIME PRN (Reason: Sleep) 30 Days Qty: 30 1RF naltrexone 50 mg Tablet 50 mg PO DAILY 30 Days Qty: 30 1RF Referrals: Jessica Coker LPC [Therapist, Psychology] - 10/24/24 1:00 pm Referral Note: Hospital follow-up Patient Instructions: Opioid Safety, Patient Portal & Antonina Instructions Discharge Attestations NPU Time Spent in Discharge Care*: less than 30 min Specific Discharge Activities: Specific discharge activities: educating patient, discussing with nurse outreach case manager/social workers/dc planners, documenting/other paperwork and evaluating patient/reviewing data Coding Level of Care Code Acute Code for [facility] Fwd Diagnoses Depression, unspecified F32.A Impulse control disorder, unspecified F63.9 Alcohol dependence with alcohol-induced mood disorder F10.24 Alcohol withdrawal F10.931
[2024-10-18 16:21] VITALS: BP 135/95; PULSE 79; RESP 18; TEMP 36.7; O2SAT 98
== END 2024-10-18 18:04 | disposition home or self-care (01) | DRG 881 ==
LOC: ER 17:04 → NP 17:07
PROVIDERS: Physician Assistant; Admitting Provider Psychiatry & Neurology Psychiatry; Emergency Provider Physician Assistant; Visit Provider Psychiatry & Neurology Psychiatry
DX: F32.A Depression, unspecified (principal); F10.24 Alcohol dependence with alcohol-induced mood disorder; F15.20 Other stimulant dependence, uncomplicated; F10.239 Alcohol dependence with withdrawal, unspecified; R64 Cachexia; Z59.00 Homelessness unspecified; F12.20 Cannabis dependence, uncomplicated; Y90.0 Blood alcohol level of less than 20 mg/100 ml; Z68.20 Body mass index [BMI] 20.0-20.9, adult; F63.9 Impulse disorder, unspecified; F17.200 Nicotine dependence, unspecified, uncomplicated
CPT/HCPCS: 36415; 80053; 80306; 80307; 81001; 82550; 85025; 87086; 97150; 97165; 99285; J9999

== ENCOUNTER 2024-10-19 22:44 | Emergency (ER) | payer BC, MEDICAID, SELFPAY ==
[2024-10-19 22:46] VITALS: BP 141/92; PULSE 92; RESP 14; TEMP 36.8; O2SAT 95
--- NOTE | 2024-10-19 22:51 | ECG_ITS ---
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 Measurements Intervals [place] Rate: 90 P: 66 WA: 158 QRS: 48 QRSD: 101 T: 50 QT: 373 QTc: 458 Interpretive Statements SINUS RHYTHM Compared to ECG 04/02/2024 01:18:51 Sinus bradycardia no longer present Early repolarization no longer present Electronically Signed On 10-20-2024 18:50:20 CDT by Neva Correa M.D. [id number]
--- NOTE | 2024-10-19 23:03 | W.ED.OVERDOS ---
HPI - Overdose General: Chief Complaint: Overdose Stated Complaint: OD/ETOH Time Seen by Provider: 10/20/24 08:38 History of Present Illness: 34-year-old male who was brought to the emergency department by EMS. at approximately 21:03 this evening he reportedly ingested approximately 29 naltrexone 50mg tablets and washed it down with a half pint of Aristocrat vodka. Patient denies suicidal or homicidal ideation. He was recently released from a psychiatric stress unit, yesterday. Patient states he took the medication because he believed it to be a placebo. He reports feeling 'crampled' and experiencing nausea. Patient denies hallucinations but mentions hearing 'voices in the background' during conversation. He reports being 'nauseous a little bit' previously, but not now. Related Data Home Medications ?Medication ?Instructions ?Recorded ?Confirmed acetaminophen 325 mg tablet 650 mg PO QID PRN Fever Or Pain 05/20/24 10/20/24 (Tylenol) ibuprofen 200 mg tablet (Advil) 800 mg PO Q6H PRN Fever Or Pain 05/20/24 10/20/24 Previous Rx's ?Medication ?Instructions ?Recorded naltrexone 50 mg tablet 50 mg PO DAILY 30 days #30 tabs 10/18/24 Allergies Allergy/AdvReac Type Severity Reaction Status Date / Time codeine Allergy ALGY-Swell Verified 10/19/24 22:50 Lip/Tongue/Throat [facility] ED PFSH: Medical History Cannabis dependence with current use daily use Cigarette nicotine dependence without complication Methamphetamine use disorder, severe, in sustained remission, dependence Last use reported as 2021 Alcohol dependence with alcohol-induced mood disorder Last alcohol use 07/10/23 Psychiatric care Encounter for follow-up care involving plastic surgery of upper extremity (Unknown) Left arm Surgical History History of carpal tunnel surgery Left hand. Social History Smoking and tobacco/nicotine status: current every day tobacco/nicotine user Physical Exam Const: GENERAL APPEARANCE: cooperative and lethargic; not ill appearing NUTRITIONAL APPEARANCE: thin ORIENTATION/CONSCIOUSNESS: Yes awake, Yes oriented to person, Yes oriented to place and Yes lethargic; not oriented to time HENMT: COMMON NORMALS: normocephalic, atraumatic and Normal external nose present HEAD & SCALP: normocephalic and atraumatic FACE & SINUS: normal facial exam and face symmetric NOSE: Normal external nose present TEETH & GINGIVA: Yes poor dentition Eye: COMMON NORMALS: Equal, round and reactive pupils present and EOMs intact bilaterally PUPIL: Yes Equal, round and reactive pupils present Neck/C-Spine: GENERAL: Yes trachea midline Chest: CHEST: Yes Symmetrical chest wall rise Resp: COMMON NORMALS: normal respiratory effort, No use of accessory muscles and clear to auscultation bilaterally AUSCULTATION: clear to auscultation bilaterally Cardio: COMMON NORMALS: regular rate and regular rhythm RATE: regular rate RHYTHM: regular rhythm Extremity: NARRATIVE EXTREMITY EXAM: Scattered ecchymoses to lower extremities Neuro: SENSORIUM/ORIENTATION: Yes oriented to person, Yes oriented to place, No oriented to time and Yes lethargic SPEECH: abnormal speech Details: slurred Course Vital Signs: Vital signs: Vital Signs Temperature 97.9 F 10/20/24 05:11 Pulse Rate 78 10/20/24 10:00 Respiratory Rate 12 10/19/24 23:56 Blood Pressure 128/92 10/20/24 10:00 Pulse Oximetry 97 10/20/24 10:00 Oxygen Delivery Me thod Room Air 10/20/24 05:11 MDM - Overdose Medical Decision Making This patient took a whole bottle of his medication intentionally. Although he states he is not suicidal currently, this clearly shows poor judgment on his part. He will have to be placed under 96-hour hold. Medically, he is currently stable. Poison control was contacted regarding the naltrexone. There is no adverse effect and no toxic dose of naltrexone. His alcohol level is very mildly elevated. At 1 point, he became agitated, ripped out his IV, and wanted to leave. He will be medicated with Geodon and Ativan. We do not have bed availability at our neuropsychiatric facility currently. Will attempt to transfer. Lab Data 10/19/24 22:26 10/19/24 22: Laboratory Results WBC 8.27 10^3/uL (3.29-11.43) 10/19/24 22: RBC 5.17 10^6/uL (3.85-5.65) 10/19/24 22: Hgb 16.00 g/dL (11.27-16.99) 10/19/24: Hct 47.6 % (37-53) 10/19/24: MCV 92.1 fl (82-101) 10/19/24 22: MCH 30.9 pg (27-33) 10/19/24: MCHC 33.6 g/dL (30-55) 10/19/24: RDW 12.6 % (12.1-15.1) 10/19/24: Plt Count 284 10^3/cmm (157-399) 10/19/24: MPV 10.7 fL (7.4-10.4) H 10/19/24: Neut % (Auto) 63.4 % 10/19/24: Lymph % (Auto) 26.5 % 10/19/24: [place] % (Auto) 3.9 % 10/19/24: Eos % (Auto) 5.0 % 10/19/24: Baso % (Auto) 1.0 % 10/19/24: Neut # (Auto) 5.25 10^3/uL (1.8-7.7) 10/19/24: Lymph # (Auto) 2.2 10^3/uL (0.8-4.8) 10/19/24: [place] # (Auto) 0.3 10^3/uL (0.2-0.9) 10/19/24: Eos # (Auto) 0.4 10^3/uL (0.0-0.8) 10/19/24: Baso # (Auto) 0.1 10^3/uL (0.0-0.1) 10/19/24: Nucleated RBC % (auto) 0 % 10/19/24: Nucleated RBCs # 0.0 /100WBC 10/19/24 22: Sodium 139 mmol/L (136-145) 10/19/24: Potassium 3.6 mmol/L (3.5-5.1) 10/19/24: Chloride 100 mmol/L (98-107) 10/19/24: Carbon Dioxide 24 mmol/L (22-29) 10/19/24 22: Anion Gap 18.6 (5-19) 10/19/24 22: BUN 10 mg/dL (6-20) 10/19/24 22: Creatinine 0.9 mg/dL (0.7-1.2) 10/19/24 22: GFR Calculation 95.5 mL/min (90-130) 10/19/24: Glucose 110 mg/dL (65-115) 10/19/24 22: Calculated Osmolality 288 mOsm/kg (285-295) 10/19/24: Calcium 9.8 mg/dL (8.5-10.5) 10/19/24: Total Bilirubin 0.2 mg/dL (0.15-1.2) 10/19/24 22: AST 18 U/L (0-40) 10/19/24 22: ALT 28 U/L (0-41) 10/19/24 22: Alkaline Phosphatase 96 U/L (40-130) 10/19/24 22: Total Protein 7.9 g/dL (6.6-8.7) 10/19/24 22: Albumin 4.7 g/dL (3.5-5.2) 10/19/24 22: Globulin 3.2 g/dL (1.3-4.6) 10/19/24 22: TSH 1.21 uIU/mL (0.27-4.20) 10/19/24 22: Urine Color Yellow (Yellow) 10/20/24 00:00 Urine Appearance Clear (CLEAR) 10/20/24 00:00 Urine pH 6.5 (5-7) 10/20/24 00:00 Ur Specific [place] 1.010 (1.005-1.030) 10/20/24 00:00 Urine Protein Negative (Negative) 10/20/24 00:00 Urine Glucose (UA) Negative (Normal) 10/20/24 00:00 Urine Ketones Negative (Negative) 10/20/24 00:00 Urine Blood Negative (Negative) 10/20/24 00:00 Urine Nitrate Negative (Negative) 10/20/24 00:00 Urine Bilirubin Negative (Negative) 10/20/24 00:00 Urine Urobilinogen 1.0 mg/dL (Negative) 10/20/24 00:00 Ur Leukocyte Esterase Negative (Negative) 10/20/24 00:00 Urine RBC 0-2 /hpf (0-2) 10/20/24 00:00 Urine WBC 0-5 /hpf (0-5) 10/20/24 00:00 Ur Squamous Epith Cells 0-5 /hpf (0-5) 10/20/24 00:00 Amorphous Sediment Not Reportable 10/20/24 00:00 Urine Bacteria None seen /hpf (NONE) 10/20/24 00:00 Hyaline Casts 0.81 /lpf 10/20/24 00:00 Salicylates < 0.3 mg/dL (3-10) L 10/19/24 22:26 Urine Opiates Screen Negative ng/mL (Negative) 10/20/24 00:00 Acetaminophen < 5.0 ug/mL (10-30) L 10/19/24 22:26 Ur Barbiturates Screen Negative ng/mL (Negative) 10/20/24 00:00 Ur Phencyclidine Scrn Negative ng/mL (Negative) 10/20/24 00:00 Ur Amphetamines Screen Positive ng/mL (Negative) H 10/20/24 00:00 U Benzodiazepines Scrn Negative ng/mL (Negative) 10/20/24 00:00 Urine Cocaine Screen Negative ng/mL (Negative) 10/20/24 00:00 U Marijuana (THC) Screen Positive ng/mL (Negative) H 10/20/24 00:00 Ethyl Alcohol 137 mg/dL (0-10) H 10/19/24 22:26 Influenza A (PCR) Negative (Negative) 10/20/24 02:30 Influenza Type B (PCR) Negative (Negative) 10/20/24 02:30 RSV (PCR) Negative (Negative) 10/20/24 02:30 SARS-CoV-2 (PCR) Negative (Negative) 10/20/24 02:30 No radiology studies performed this visit Discharge Plan Discharge Patient Disposition: Xfer Psychiatric Hosp Clinical Impression: Acute psychosis Drug overdose Qualifiers: Encounter type: initial encounter Injury intent: intentional self-harm Qualified Code(s): T50.902A - Poisoning by unspecified drugs, medicaments and biological substances, intentional self-harm, initial encounter Condition: Stable Print Language: [place] Leonean Coding Level of Care Code ED [facility] Nurs[facility] Transplanter for Momo Moe
--- NOTE | 2024-10-19 23:12 | PC.NURSE ---
.Poison control contact at [phone], spoke with Mitali LOMAS. She states that the peak is 1-2 hrs post ingestion.
[2024-10-19 23:36] LABS: Hematocrit 47.6 % (37-53); Hemoglobin 16.00 g/dL (11.27-16.99); Mean Corpuscular HGB Conc 33.6 g/dL (30-55); Mean Corpuscular Hemoglobin 30.9 pg (27-33); Mean Corpuscular Volume 92.1 fl (82-101); Nucleated Red Blood Cells % 0 %; Platelet Count 284 10^3/cmm (157-399); Red Blood Count 5.17 10^6/uL (3.85-5.65); White Blood Count 8.27 10^3/uL (3.29-11.43)
[2024-10-19 23:56] VITALS: BP 141/92; PULSE 88; RESP 12; O2SAT 95
[2024-10-20 00:06] LABS: Alanine Aminotransferase 28 U/L (0-41); Albumin Level 4.7 g/dL (3.5-5.2); Alcohol Level 137 mg/dL (0-10); Alkaline Phosphatase 96 U/L (40-130); Anion Gap 18.6 (5-19); Aspartate Amino Transferase 18 U/L (0-40); Blood Urea Nitrogen 10 mg/dL (6-20); Calcium 9.8 mg/dL (8.5-10.5); Carbon Dioxide 24 mmol/L (22-29); Chloride 100 mmol/L (98-107); Creatinine Clr Calc Pharmacy 105.9368; Globulin 3.2 g/dL (1.3-4.6); Glucose 110 mg/dL (65-115); Osmolality Calculated 288 mOsm/kg (285-295); Potassium 3.6 mmol/L (3.5-5.1); Sodium 139 mmol/L (136-145); Thyroid Stimulating Hormone 1.21 uIU/mL (0.27-4.20); Total Protein 7.9 g/dL (6.6-8.7)
[2024-10-20 00:09] LABS: Acetaminophen < 5.0 ug/mL (10-30); Salicylate < 0.3 mg/dL (3-10)
[2024-10-20 00:22] LABS: Glucose Urine UA Negative (Normal); Nitrate Urine Negative (Negative); Specific Gravity, Urine 1.010 (1.005-1.030)
[2024-10-20 00:24] LABS: Add Urine Microscopic? YES
[2024-10-20 00:28] LABS: PCP Screen Urine Negative (Negative)
[2024-10-20 01:00] VITALS: BP 151/95; PULSE 83; O2SAT 100
[2024-10-20] MEDS: LORazepam 1 MG/0.5 ML injection 2 MG IM (01:46)
[2024-10-20] MEDS: water for injection-sterile 10 ML (01:47)
--- NOTE | 2024-10-20 01:50 | PC.NURSE ---
96 HH Pt served with copy of 96 HH by this RN and security. Pt alert, oriented to city, pt speaking to voices/conversations that were not present in the room. Pt became overstimulated easily, interrupting this speaker multiple times, raising his hands in the air, fidgeting, sudden jerky movements without purpose. Copy rights left at bedside.
[2024-10-20 02:00] VITALS: BP 132/67; PULSE 82; O2SAT 94
[2024-10-20 03:39] LABS: Respiratory Syncytial Virus Ce NEGATIVE (Negative); SARS-CoV-2 PCR NEGATIVE (Negative)
[2024-10-20 05:11] VITALS: BP 110/72; PULSE 89; TEMP 36.6; O2SAT 98
--- NOTE | 2024-10-20 08:38 | W.ED.OVERDOS ---
HPI - Overdose General: Chief Complaint: Overdose Stated Complaint: OD/ETOH Time Seen by Provider: 10/20/24 08:38 History of Present Illness: signout note see MDM and previous note from Dr. Castro. Related Data Home Medications ?Medication ?Instructions ?Recorded ?Confirmed acetaminophen 325 mg tablet 650 mg PO QID PRN Fever Or Pain 05/20/24 10/14/24 (Tylenol) ibuprofen 200 mg tablet (Advil) 800 mg PO Q6H PRN Fever Or Pain 05/20/24 10/14/24 Previous Rx's ?Medication ?Instructions ?Recorded naltrexone 50 mg tablet 50 mg PO DAILY 30 days #30 tabs 10/18/24 Allergies Allergy/AdvReac Type Severity Reaction Status Date / Time codeine Allergy ALGY-Swell Verified 10/19/24 22:50 Lip/Tongue/Throat [facility] ED PFSH: Medical History (Updated 10/20/24 @ 01:26 by Manpreet Castro DO) Cannabis dependence with current use daily use Cigarette nicotine dependence without complication Methamphetamine use disorder, severe, in sustained remission, dependence Last use reported as 2021 Alcohol dependence with alcohol-induced mood disorder Last alcohol use 07/10/23 Psychiatric care Encounter for follow-up care involving plastic surgery of upper extremity (Unknown) Left arm Surgical History History of carpal tunnel surgery Left hand. Social History Smoking and tobacco/nicotine status: current every day tobacco/nicotine user Course Vital Signs: Vital signs: Vital Signs Temperature 97.9 F 10/20/24 05:11 Pulse Rate 89 10/20/24 05:11 Respiratory Rate 12 10/19/24 23:56 Blood Pressure 110/72 10/20/24 05:11 Pulse Oximetry 98 10/20/24 05:11 Oxygen Delivery Me thod Room Air 10/20/24 05:11 MDM - Overdose Medical Decision Making Signout time: 0600 Pending: Placement for suicide attempt. See previous note from Dr. Castro for full elucidation of the patient's stay in the emergency department. In short patient intentionally took medication to end his life. No residual side effects in the emergency department or emergent laboratory abnormalities and testing acute intervention. Patient will be transferred to the care of at [facility] for inpatient behavioral health treatment. Patient educated about reasons to return to the emergency department including signs of ongoing or changing condition. Advised to make an appointment with primary care or to establish care with a primary care provider to review all results from this encounter. This note was written with assistance of dictation software. Contact author for any clarification of typos. Misha Miguel MD Lab Data 10/19/24 22:10/19/24 22: Laboratory Results WBC 8.27 10^3/uL (3.29-11.43) 10/19/24 22: RBC 5.17 10^6/uL (3.85-5.65) 10/19/24: Hgb 16.00 g/dL (11.27-16.99) 10/19/24: Hct 47.6 % (37-53) 10/19/24: MCV 92.1 fl (82-101) 10/19/24: MCH 30.9 pg (27-33) 10/19/24 22: MCHC 33.6 g/dL (30-55) 10/19/24 22: RDW 12.6 % (12.1-15.1) 10/19/24: Plt Count 284 10^3/cmm (157-399) 10/19/24: MPV 10.7 fL (7.4-10.4) H 10/19/24 22: Neut % (Auto) 63.4 % 10/19/24 22: Lymph % (Auto) 26.5 % 10/19/24: [place] % (Auto) 3.9 % 10/19/24 22: Eos % (Auto) 5.0 % 10/19/24: Baso % (Auto) 1.0 % 10/19/24: Neut # (Auto) 5.25 10^3/uL (1.8-7.7) 10/19/24: Lymph # (Auto) 2.2 10^3/uL (0.8-4.8) 10/19/24: [place] # (Auto) 0.3 10^3/uL (0.2-0.9) 10/19/24: Eos # (Auto) 0.4 10^3/uL (0.0-0.8) 10/19/24 22: Baso # (Auto) 0.1 10^3/uL (0.0-0.1) 10/19/24 22: Nucleated RBC % (auto) 0 % 10/19/24 22: Nucleated RBCs # 0.0 /100WBC 10/19/24 22: Sodium 139 mmol/L (136-145) 10/19/24 22: Potassium 3.6 mmol/L (3.5-5.1) 10/19/24 22: Chloride 100 mmol/L (98-107) 10/19/24 22: Carbon Dioxide 24 mmol/L (22-29) 10/19/24: Anion Gap 18.6 (5-19) 10/19/24 22: BUN 10 mg/dL (6-20) 10/19/24 22: Creatinine 0.9 mg/dL (0.7-1.2) 10/19/24 22: GFR Calculation 95.5 mL/min (90-130) 10/19/24 22: Glucose 110 mg/dL (65-115) 10/19/24 22: Calculated Osmolality 288 mOsm/kg (285-295) 10/19/24 22: Calcium 9.8 mg/dL (8.5-10.5) 10/19/24 22: Total Bilirubin 0.2 mg/dL (0.15-1.2) 10/19/24 22: AST 18 U/L (0-40) 10/19/24 22: ALT 28 U/L (0-41) 10/19/24 22: Alkaline Phosphatase 96 U/L (40-130) 10/19/24 22: Total Protein 7.9 g/dL (6.6-8.7) 10/19/24 22: Albumin 4.7 g/dL (3.5-5.2) 10/19/24 22: Globulin 3.2 g/dL (1.3-4.6) 10/19/24 22: TSH 1.21 uIU/mL (0.27-4.20) 10/19/24 22: Urine Color Yellow (Yellow) 10/20/24 00:00 Urine Appearance Clear (CLEAR) 10/20/24 00:00 Urine pH 6.5 (5-7) 10/20/24 00:00 Ur Specific [place] 1.010 (1.005-1.030) 10/20/24 00:00 Urine Protein Negative (Negative) 10/20/24 00:00 Urine Glucose (UA) Negative (Normal) 10/20/24 00:00 Urine Ketones Negative (Negative) 10/20/24 00:00 Urine Blood Negative (Negative) 10/20/24 00:00 Urine Nitrate Negative (Negative) 10/20/24 00:00 Urine Bilirubin Negative (Negative) 10/20/24 00:00 Urine Urobilinogen 1.0 mg/dL (Negative) 10/20/24 00:00 Ur Leukocyte Esterase Negative (Negative) 10/20/24 00:00 Urine RBC 0-2 /hpf (0-2) 10/20/24 00:00 Urine WBC 0-5 /hpf (0-5) 10/20/24 00:00 Ur Squamous Epith Cells 0-5 /hpf (0-5) 10/20/24 00:00 Amorphous Sediment Not Reportable 10/20/24 00:00 Urine Bacteria None seen /hpf (NONE) 10/20/24 00:00 Hyaline Casts 0.81 /lpf 10/20/24 00:00 Salicylates < 0.3 mg/dL (3-10) L 10/19/24 22:26 Urine Opiates Screen Negative ng/mL (Negative) 10/20/24 00:00 Acetaminophen < 5.0 ug/mL (10-30) L 10/19/24 22:26 Ur Barbiturates Screen Negative ng/mL (Negative) 10/20/24 00:00 Ur Phencyclidine Scrn Negative ng/mL (Negative) 10/20/24 00:00 Ur Amphetamines Screen Positive ng/mL (Negative) H 10/20/24 00:00 U Benzodiazepines Scrn Negative ng/mL (Negative) 10/20/24 00:00 Urine Cocaine Screen Negative ng/mL (Negative) 10/20/24 00:00 U Marijuana (THC) Screen Positive ng/mL (Negative) H 10/20/24 00:00 Ethyl Alcohol 137 mg/dL (0-10) H 10/19/24 22:26 Influenza A (PCR) Negative (Negative) 10/20/24 02:30 Influenza Type B (PCR) Negative (Negative) 10/20/24 02:30 RSV (PCR) Negative (Negative) 10/20/24 02:30 SARS-CoV-2 (PCR) Negative (Negative) 10/20/24 02:30 No radiology studies performed this visit Discharge Plan Discharge Patient Disposition: Xfer Psychiatric Hosp Clinical Impression: Acute psychosis Drug overdose Qualifiers: Encounter type: initial encounter Injury intent: intentional self-harm Qualified Code(s): T50.902A - Poisoning by unspecified drugs, medicaments and biological substances, intentional self-harm, initial encounter Condition: Stable Print Language: Pakistani Coding Level of Care Code ED Head Grower for [facility]
[2024-10-20 10:00] VITALS: BP 128/92; PULSE 78; O2SAT 97
== END 2024-10-20 10:02 ==
PROVIDERS: Emergency Medicine; Emergency Provider General Practice
DX: T50.7X2A Poisoning by analeptics and opioid receptor antagonists, intentional self-harm, initial encounter (principal); X58.XXXA Exposure to other specified factors, initial encounter; Z11.52 Encounter for screening for COVID-19; Z72.0 Tobacco use
CPT/HCPCS: 80053; 80306; 80307; 81001; 84443; 85025; 87637; 93005; 96372; 99285; J2060; J3486